=== PATIENT | male | born 1940 | race Caucasian/White ===

== ENCOUNTER 2017-03-12 16:03 | Emergency (ER) | payer OTHER ==
[~2017-03-12] VITALS: Ht 165.1 cm; Wt 75.0 kg
[2017-03-12 16:04] VITALS: BP 166/79; PULSE 99; RESP 24; TEMP 100; O2SAT 94
[2017-03-12 16:20] VITALS: RESP 16; O2SAT 95
[2017-03-12] MEDS ORDERED: TAMS0.4C4 PO (16:41)
[2017-03-12] MEDS ORDERED: PRAV20TA2 PO (16:41)
--- NOTE | 2017-03-12 16:55 | PD ---
HPI Chief Complaint: Complaint Time Seen by Provider: 16:55 Travel History International Travel<30 days: No Contact w/Intl Traveler<30days: No Traveled to known affect area: No History of Present Illness HPI 76-year-old male with a history of hyperlipidemia and prostate cancer presents to the emergency department for evaluation of painful urination, fever and urinary frequency. Patient states that for the past 3 days he's had pain in the tip of his penis after urinating. States that today he had subjective fever and has had urinary frequency, states he has urinated about 30 times today. He states that he does have a history of prostate cancer and is currently receiving outpatient radiation therapy, denies any chemotherapy. Denies any rectal pain, painful bowel movements, perineal pain, hematuria, testicular pain, abdominal pain, nausea, vomiting, diarrhea. No other complaints. PFSH Past Medical History Cancer: Yes (prostate) Patient Takes Glucophage: No Tetanus Vaccination: Unknown Influenza Vaccination: No Past Surgical History Appendectomy: Yes Social History Alcohol Use: No Tobacco Use: No (stopped at age 51, smoked for 25 years) Substance Use: No Allergies-Medications (Allergen,Severity, Reaction): Coded Allergies: Penicillin (Verified Allergy, Unknown, 03/12/17) Reported Meds & Prescriptions Reported Meds & Active Scripts Active Levaquin (Levofloxacin) 750 Mg Tablet 750 Tab PO DAILY 7 Days Reported Pravastatin 20 Mg Tab 20 Mg PO HS Tamsulosin (Tamsulosin HCl) 0.4 Mg Cap 0.4 Mg PO BID Review of Systems Except as stated in HPI: all other systems reviewed are Neg Physical Exam Narrative GENERAL: Well-nourished and well-developed pleasant male patient in no acute distress who is nontoxic appearing. SKIN: Warm and dry. HEAD: Normocephalic and atraumatic. EYES: No injection, drainage, or hyphema noted. PERRLA. EOMI. ENT: No nasal drainage noted. Oropharynx is clear. NECK: Supple and the trachea is midline. CARDIOVASCULAR: Regular rate and rhythm. RESPIRATORY: Breath sounds are equal bilaterally with no accessory muscle use, wheezing, rhonchi, or crackles. GASTROINTESTINAL: Abdomen is soft, non-tender, and nondistended. GENITOURINARY: Uncircumcised. Testes descended bilaterally without evidence of rotation. No lesions or erythema. No urethral discharge. Tenderness to palpation of distal penis around the urethral meatus. No perineal tenderness to palpation or swelling. Performed in the presence of Brandon RN. MUSCULOSKELETAL: No obvious deformities, swelling, cyanosis, or ecchymosis is present throughout the upper and lower extremities. Patient has full range of motion without any signs of neurovascular compromise. NEUROLOGICAL: Awake, alert, and oriented. Normal speech and gait. Cranial nerves are grossly intact. Data Data Last Documented VS Vital Signs Date Time Temp Pulse Resp B/P Pulse Ox O2 Delivery O2 Flow Rate FiO2 03/12/17 17:14 99.7 90 18 156/88 100 Room Air Orders Complete Blood Count With Diff (03/12/17 16:24) Comprehensive Metabolic Panel (03/12/17 16:24) Lactic Acid Sepsis Protocol (03/12/17 16:24) Urinalysis - C+S If Indicated (03/12/17 16:24) Blood Culture (03/12/17 16:24) Chest, Single Ap (03/12/17 16:24) Blood Glucose (03/12/17 16:24) Ecg Monitoring (03/12/17 16:24) Iv Access Insert/Monitor (03/12/17 16:24) Oximetry (03/12/17 16:24) Ct Thorax/ Chest W Iv Contrast (03/12/17 17:25) Sodium Chlor 0.9% 1000 Ml Inj (Ns 1000 M (03/12/17 17:25) Urine Culture (03/12/17 17:26) Iohexol 350 Inj (Omnipaque 350 Inj) (03/12/17 18:18) Labs Laboratory Tests Test 03/12/17 03/12/17 03/12/17 16:25 16:40 16:57 White Blood Count 6.7 TH/MM3 Red Blood Count 4.74 MIL/MM3 Hemoglobin 13.3 GM/DL Hematocrit 39.8 % Mean Corpuscular Volume 84.0 FL Mean Corpuscular Hemoglobin 28.0 PG Mean Corpuscular Hemoglobin 33.3 % Concent Red Cell Distribution Width 13.1 % Platelet Count 213 TH/MM3 Mean Platelet Volume 8.9 FL Neutrophils (%) (Auto) 76.5 % Lymphocytes (%) (Auto) 10.8 % Monocytes (%) (Auto) 9.9 % Eosinophils (%) (Auto) 2.1 % Basophils (%) (Auto) 0.7 % Neutrophils # (Auto) 5.2 TH/MM3 Lymphocytes # (Auto) 0.7 TH/MM3 Monocytes # (Auto) 0.7 TH/MM3 Eosinophils # (Auto) 0.1 TH/MM3 Basophils # (Auto) 0.0 TH/MM3 CBC Comment DIFF FINAL Differential Comment Sodium Level 137 MEQ/L Potassium Level 3.9 MEQ/L Chloride Level 103 MEQ/L Carbon Dioxide Level 23.7 MEQ/L Anion Gap 10 MEQ/L Blood Urea Nitrogen 20 MG/DL Creatinine 1.11 MG/DL Estimat Glomerular Filtration 65 ML/MIN Rate Random Glucose 104 MG/DL Calcium Level 9.0 MG/DL Total Bilirubin 0.3 MG/DL Aspartate Amino Transf 26 U/L (AST/SGOT) Alanine Aminotransferase 41 U/L (ALT/SGPT) Alkaline Phosphatase 64 U/L Total Protein 7.8 GM/DL Albumin 3.5 GM/DL Lactic Acid Level 1.1 mmol/L Urine Color YELLOW Urine Turbidity CLEAR Urine pH 6.0 Urine Specific [place] 1.019 Urine Protein NEG mg/dL Urine Glucose (UA) NEG mg/dL Urine Ketones NEG mg/dL Urine Occult Blood TRACE Urine Nitrite NEG Urine Bilirubin NEG Urine Urobilinogen LESS THAN 2.0 MG/DL Urine Leukocyte Esterase NEG Urine RBC 1 /hpf Urine WBC 2 /hpf Urine Mucus FEW /lpf Microscopic Urinalysis Comment CATH-CULT NOT IND MDM Medical Decision Making Medical Screen Exam Complete: Yes Emergency Medical Condition: Yes Differential Diagnosis Urinary tract infection versus urethritis versus radiation side effects versus prostatitis Narrative Course 76-year-old male presents to the emergency department for evaluation of painful urination, fever and urinary frequency. Patient has a fever of 100.0F here in the ED. He slightly tachycardic with a heart rate of 99 bpm. Otherwise vital signs within normal limits. Patient has a history of prostate cancer receiving radiation therapy, no chemotherapy. He does not have any pain overlying the prostate, his pain is located in the distal tip of the penis. History and physical exam findings are suspicious for urinary tract infection. IV access is obtained, labs were drawn and sent. Patient is placed on cardiac telemetry and pulse oximetry monitoring. CBC is unremarkable. CMP shows elevated BUN of 20, otherwise unremarkable. Lactic acid is 1.1. Urinalysis shows trace occult blood and few mucus. Chest x-ray shows focal right upper lobe opacity with differential including early mild focal pneumonia and mass. Chest CT is recommended if felt clinically indicated. Chest CT with IV contrast shows focal wedge-shaped airspace consolidation measuring 3.3 x 3.4 cm in the peripheral right upper lobe. Differential considerations include focal air space infection versus infiltrative mass. Follow-up to resolution is recommended following course of appropriate antibiotics. Mild nonspecific bilateral hilar adenopathy. I discussed all findings with the patient and his son. Given the patient's fever this is likely a pneumonia. We'll treat the patient with Levaquin to cover for any potential source of urinary infection as well as pneumonia. Discussed with the patient and son that he may have a chest mass, they're given a copy of the chest CT report. They're instructed to follow up after the antibiotics to have repeat chest x-ray. Patient and son verbalized understanding and agreement with treatment plan. I discussed the case with my attending physician Dr. Buitrago who is aware of the patients history, physical examination findings, and treatment plan. Diagnosis Primary Impression: Pneumonia Qualified Code: J18.1 - Pneumonia of right upper lobe due to infectious organism Additional Impression: Dysuria Referrals: Primary Care Physician Patient Instructions: Community Acquired Pneumonia (ED), Dysuria (ED), General Instructions Additional Instructions: The Chest CT we performed shows you may have a mass in your lung. You need to have a repeat chest x-ray after finishing the antibiotics. Take medications as prescribed with food and a full glass of water. Follow-up with your Primary Care Physician. Return to the ED for any acute worsening of symptoms. Med/Other Pt SpecificInfo: Prescription(s) given Scripts Levofloxacin (Levaquin)750 Mg [id number] Tab PO DAILY 7 Days Prov:Amado Buitrago MD 03/12/17 Disposition: 01 DISCHARGE HOME Condition: Stable Pinky Ellis Mar 12, 2017 16:55
[2017-03-12 17:01] LABS: AUTOMATED NEUTROPHIL # 5.2 TH/MM3 (1.8-7.7); BASOPHIL % 0.7 % (0.0-2.0); EOSINOPHIL # 0.1 TH/MM3 (0-0.4); EOSINOPHIL % 2.1 % (0.0-4.0); HEMATOCRIT 39.8 % (39.0-51.0); HEMO FLAGS DIFF FINAL; LYMPH % 10.8 % (9.0-44.0); LYMPHOCYTE # 0.7 TH/MM3 (1.0-4.8); MEAN CORPUSCULAR HGB CONC 33.3 % (32.0-36.0); MONO % 9.9 % (0.0-8.0); NEUT % 76.5 % (16.0-70.0); PLATELET COUNT 213 TH/MM3 (150-450); RED BLOOD COUNT 4.74 MIL/MM3 (4.50-5.90); RED CELL DISTRIBUTION WIDTH 13.1 % (11.6-17.2); WHITE BLOOD COUNT 6.7 TH/MM3 (4.0-11.0)
--- NOTE | 2017-03-12 17:04 | RADRPT ---
EXAM DATE/TIME: 03/12/2017 16:27 [facility] COMPARISON: No previous studies available for comparison. INDICATIONS : Fever MEDICAL HISTORY : Hypercholesterolemia. SURGICAL HISTORY : None. ENCOUNTER: Initial ACUITY: 1 day PAIN SCORE: 0/10 LOCATION: Bilateral chest FINDINGS: Vague opacity projects over the right upper lobe, could be localized consolidation or mass. There is trace atelectasis at the left lung base. No pleural effusion seen. No pneumothorax. Heart size within normal limits. CONCLUSION: Focal right upper lobe opacity with differential including early/mild focal pneumonia and mass. CT of the chest recommended if felt clinically indicated. Otherwise, there is trace left base atelectasis noted. Bartolome Keenan MD on March 12, 2017 at 16:59 Board Certified Radiologist. This report was verified electronically.
[2017-03-12 17:14] VITALS: BP 156/88; PULSE 90; RESP 18; TEMP 99.7; O2SAT 100
[2017-03-12 17:15] LABS: BLOOD, URINE TRACE (NEG); GLUCOSE,URINE NEG (NEG); KETONE, URINE NEG (NEG); MUCUS URINE FEW /lpf (OCC); NITRITE,URINE NEG (NEG); URINE COLOR YELLOW (YELLW/STRAW)
[2017-03-12 17:16] LABS: COMMENT (UR) CATH-CULT NOT IND; CULTURE IF INDICATED CATH CULTURE NOT IND
[2017-03-12] MEDS ORDERED: SODIUM CHLOR 0.9% 1000 ML INJ 1,000 ML IV SCH (17:25)
[2017-03-12 17:26] LABS: ANION GAP 10 MEQ/L (5-15); AST (GOT) 26 U/L (15-37); BICARBONATE 23.7 MEQ/L (21.0-32.0); BLOOD UREA NITROGEN 20 MG/DL (7-18); CHLORIDE 103 MEQ/L (98-107); GLOMERULAR FILTRATION RATE 65 ML/MIN (>89); POTASSIUM 3.9 MEQ/L (3.5-5.1); SODIUM (NA) 137 MEQ/L (136-145)
[2017-03-12 17:27] LABS: ALT (GPT) 41 U/L (12-78)
[2017-03-12 17:29] LABS: ALKALINE PHOSPHATASE 64 U/L (45-117); TOTAL BILIRUBIN ADULT 0.3 MG/DL (0.2-1.0)
[2017-03-12] MEDS ORDERED: IOHEXOL 350 MG/ML 10 ML VIAL (for RAD DIAG) IV ONE (18:18)
--- NOTE | 2017-03-12 18:40 | RADRPT ---
EXAM DATE/TIME: 03/12/2017 18:00 [facility] COMPARISON: CHEST SINGLE AP, March 12, 2017, 16:27. INDICATIONS : Abnormal chest x-ray. IV CONTRAST: 65 cc Omnipaque 350 (iohexol) IV RADIATION DOSE: 9.87 CTDIvol (mGy) MEDICAL HISTORY : Carcinoma, prostate. SURGICAL HISTORY : None. ENCOUNTER: Initial ACUITY: 1 day PAIN SCALE: 0/10 LOCATION: Bilateral chest TECHNIQUE: Volumetric scanning of the chest was performed. Using automated exposure control and adjustment of t he mA and/or kV according to patient size, radiation dose was kept as low as reasonably achievable to obtain optimal diagnostic quality images. FINDINGS: Abnormality on radiograph corresponds to 3.3 x 3.4 cm focal nearly wedge-shaped airspace consolidatio n in the peripheral right upper lobe. Scattered calcified granulomas are noted in the left lung. No a dditional foci of pleural or parenchymal abnormalities are noted. There is bilateral hilar adenopathy with nodes measuring up to 12 mm. No significant mediastinal adenopathy. Heart appears unremarkable without significant pericardial effusion. The central pulmonary arteries are grossly patent. Thoracic aorta is patent and non-aneurysmal. No axillary adenopathy or chest wall mass. No focal abnormal lyt ic or blastic bony lesions in the visualized osseous structures. The less portions of the upper abdom en demonstrate no focal abnormality. CONCLUSION: 1. Chest radiograph abnormality corresponds to region of focal somewhat wedge-shaped airspace consoli dation measuring 3.3 x 3.4 cm in the peripheral right upper lobe. Differential considerations include focal airspace infection versus infiltrative mass. Clinical correlation is recommended. Followup to resolution is recommended following course of appropriate antibiotics. 2. Mild nonspecific bilateral hilar adenopathy. Rajesh Banda MD on March 12, 2017 at 18:30 Board Certified Radiologist. This report was verified electronically.
[2017-03-12] MEDS ORDERED: LEVA750T9 PO (18:49)
== END 2017-03-12 19:07 | disposition home or self-care (01) ==
LOC: NEPE 16:03
DX: J18.1 Lobar pneumonia, unspecified organism (principal); N39.0 Urinary tract infection, site not specified; B96.20 Unspecified Escherichia coli [E. coli] as the cause of diseases classified elsewhere; Z85.46 Personal history of malignant neoplasm of prostate; Z87.891 Personal history of nicotine dependence
CPT/HCPCS: 71010; 71260; 80053; 81001; 83605; 85025; 87040; 87077; 87086; 87186; 99285; J7030; Q9967

== ENCOUNTER 2017-09-18 15:18 | Emergency (ER) | payer OTHER, MEDICAID ==
[~2017-09-18] VITALS: Ht 165.1 cm; Wt 72.5 kg
[~2017-09-18 15:18] MED LIST: LEVA750T9 PO; PRAV20TA2 PO; TAMS0.4C4 PO
[2017-09-18 15:22] VITALS: BP 154/66; PULSE 80; RESP 16; TEMP 98.2; O2SAT 97
--- NOTE | 2017-09-18 15:39 | PD ---
HPI Chief Complaint: Pain: Acute or Chronic Time Seen by Provider: 15:34 Travel History International Travel<30 days: No Contact w/Intl Traveler<30days: No Traveled to known affect area: No History of Present Illness HPI 76 YO right hand dominant male presents to the ED for evaluation of 2 day history of left hand pain. Onset after the patient lost his balance and attempted to catch himself with his left hand. Pain is centered at the base of the first metacarpal. Described as constant, rated 5/10. Worsened by attempted ROM. He denies numbness, tingling, weakness, limitations to range of motion, previous injury to the area. The patient treated by putting a splint on his wrist. PFSH Past Medical History Cancer: Yes (prostate) Past Surgical History Appendectomy: Yes Social History Alcohol Use: No Tobacco Use: No (stopped at age 51, smoked for 25 years) Substance Use: No Allergies-Medications (Allergen,Severity, Reaction): Coded Allergies: penicillin G (Unverified Allergy, Unknown, 09/18/17) Reported Meds & Prescriptions Reported Meds & Active Scripts Active Ibuprofen 600 Mg Tab 600 Mg PO Q8HR PRN Levaquin (Levofloxacin) 750 Mg Tablet 750 Tab PO DAILY 7 Days Reported Pravastatin 20 Mg Tab 20 Mg PO HS Tamsulosin (Tamsulosin HCl) 0.4 Mg Cap 0.4 Mg PO BID Review of Systems Except as stated in HPI: all other systems reviewed are Neg Physical Exam Narrative GENERAL: Well-nourished, well-developed male in no acute distress. SKIN: Focused skin assessment warm/dry. HEAD: Normocephalic. EYES: No scleral icterus. No injection or drainage. NECK: Supple, trachea midline. No JVD or lymphadenopathy. CARDIOVASCULAR: Regular rate and rhythm without murmurs, gallops, or rubs. RESPIRATORY: Breath sounds equal bilaterally. No accessory muscle use. GASTROINTESTINAL: Abdomen soft, non-tender, nondistended. MUSCULOSKELETAL: No cyanosis, or edema. FOCUSED LEFT UPPER EXTREMITY EXAM: 2+ radial pulse. TTP base of the first metacarpal. No snuffbox TTP. Strong finger to thumb opposition with each digit. Patient is able to flex and extend the fingers and the wrist. Cap refill less than 2 seconds. Sensation intact to light touch distally. BACK: Nontender without obvious deformity. No CVA tenderness. Data Data Last Documented VS Vital Signs Date Time Temp Pulse Resp B/P (MAP) Pulse Ox O2 Delivery O2 Flow Rate FiO2 09/18/17 16:29 09/18/17 15:22 98.2 80 16 97 Orders Orders Ibuprofen (Motrin) (09/18/17 15:45) Hand, Complete ([id number]) (09/18/17 15:39) Ice/Cold Pack (09/18/17 15:39) Splint Or Brace Apply/Monitor (09/18/17 16:11) Ed Discharge Order (09/18/17 16:11) Cockup Hand Splint (09/18/17 ) [facility] Medical Decision Making Medical Screen Exam Complete: Yes Emergency Medical Condition: Yes Differential Diagnosis wrist strain versus fracture versus dislocation versus sprain versus other Narrative Course 76 YO right hand dominant male presents to the ED for evaluation of 2 day history of left hand pain. Onset after the patient lost his balance attempted to catch himself with his left hand. Pain is centered at the base of the first metacarpal. Described as constant, rated 5/10. Worsened by attempted ROM. He denies numbness, tingling, weakness, limitations to range of motion, previous injury to the area. The patient treated by putting a splint on his wrist. Vitals reviewed. On exam the patient has tenderness to palpation of the base of the first metacarpal but exam is otherwise unremarkable. Icepack was applied. Patient was administered 600 mg ibuprofen. X-rays reveal no acute bony injury. SPLINT was applied. Patient was prescribed a short course of anti -inflammatory medications. He is instructed take the medicine as prescribed, return to normal, gentle activity as tolerated, follow-up with the hand surgeon should symptoms persist. He indicated understanding of the instructions and is agreeable to the care plan. The patient is stable and discharged home. Diagnosis Primary Impression: Hand pain, left Referrals: Lili Calderon MD Patient Instructions: General Instructions, Hand Sprain (ED) Additional Instructions: Rest, ice, elevate the extremity. Apply ice no longer than 10-15 minutes per hour a few times a day. 600 mg ibuprofen up to 3 times a day as needed for pain. Return to normal, gentle activity as tolerated. No heavy lifting or overuse for the next week. Follow up with a hand surgeon should symptoms persist. Return to the ED for any urgent or emergent medical condition. Med/Other Pt SpecificInfo: Prescription(s) given Scripts Ibuprofen (Ibuprofen) 600 Mg Tab 600 MG PO Q8HR Y for PAIN, #15 TAB 0 Refills Prov: Renuka Walker MD 09/18/17 Disposition: 01 DISCHARGE HOME Condition: Stable Fadumo Potts Sep 18, 2017 15:39
[2017-09-18] MEDS ORDERED: IBUPROFEN 600 MG TAB PO ONE (15:45)
[2017-09-18] MEDS ORDERED: IBUP-232 PO ×3 (16:13→16:16)
--- NOTE | 2017-09-18 16:47 | RADRPT ---
EXAM DATE/TIME: 09/18/2017 15:51 [facility] COMPARISON: No previous studies available for comparison. INDICATIONS : Trauma. MEDICAL HISTORY : None. SURGICAL HISTORY : None. ENCOUNTER: Initial ACUITY: 1 day PAIN SCORE: 9/10 LOCATION: Left Wrist. FINDINGS: 3 views left hand. Bone alignment within normal limits. No evidence of fracture. Bone mineralization within normal limits. Minimal osteophytes of the index finger and long finger DIP joints. Small radi opaque foreign body in the soft tissues adjacent to the distal radius laterally. CONCLUSION: No evidence of fracture. Tristan Poole MD on September 18, 2017 at 16:45 Board Certified Radiologist. This report was verified electronically.
== END 2017-09-18 16:29 | disposition home or self-care (01) ==
LOC: NEPD 15:18
DX: M79.642 Pain in left hand (principal)
CPT/HCPCS: 73130; 99283; L3908

== ENCOUNTER 2017-10-31 14:25 | Emergency (ER) | payer OTHER, MEDICAID ==
[~2017-10-31 14:25] MED LIST changes: +IBUP-232 PO
[2017-10-31 14:26] VITALS: BP 184/86; PULSE 81; RESP 14; TEMP 97.3; O2SAT 94
[2017-10-31 14:42] VITALS: BP 173/80; PULSE 73; RESP 16; O2SAT 99
--- NOTE | 2017-10-31 14:51 | PD ---
HPI Chief Complaint: Stroke Alert Time Seen by Provider: 14:20 Travel History International Travel<30 days: No Contact w/Intl Traveler<30days: No Traveled to known affect area: No History of Present Illness HPI Patient is a primarily Turkmen-speaking patient comes in complaining of right sided face inability to move. He woke up at around 8 AM today with these symptoms, patient denies any lateralizing weakness to his arms and legs trunk or anywhere else. Patient states that he denies any associated fever cough chest pain back pain headache nausea vomiting or diarrhea as well as any photophobia. Patient states he has no alleviating or aggravating factors. Patient states that his speech is normal everything is normal except for his face PFSH Past Medical History Cancer: Yes (prostate) Past Surgical History Appendectomy: Yes Social History Alcohol Use: No Tobacco Use: No (stopped at age 51, smoked for 25 years) Substance Use: No Allergies-Medications (Allergen,Severity, Reaction): Coded Allergies: penicillin G (Verified Allergy, Unknown, RASH, 10/31/17) Reported Meds & Prescriptions Reported Meds & Active Scripts Active Reported Pravastatin 20 Mg Tab 20 Mg PO HS Tamsulosin (Tamsulosin HCl) 0.4 Mg Cap 0.4 Mg PO BID Review of Systems General / Constitutional: No: Fever Eyes: No: Visual changes HENT: Positive: Other Cardiovascular: No: Chest Pain or Discomfort Respiratory: No: Shortness of Breath Gastrointestinal: No: Abdominal Pain Genitourinary: No: Dysuria Musculoskeletal: No: Pain Skin: No Rash Neurologic: Positive: Weakness (facial) Psychiatric: No: Depression Endocrine: No: Polydipsia Hematologic/Lymphatic: No: Easy Bruising Physical Exam Narrative GENERAL: SKIN: Warm and dry. HEAD: Atraumatic. Normocephalic. EYES: Pupils equal and round. No scleral icterus. No injection or drainage. ENT: No nasal bleeding or discharge. Mucous membranes pink and moist. NECK: Trachea midline. No JVD. CARDIOVASCULAR: Regular rate and rhythm. RESPIRATORY: No accessory muscle use. Clear to auscultation. Breath sounds equal bilaterally. GASTROINTESTINAL: Abdomen soft, non-tender, nondistended. Hepatic and splenic margins not palpable. MUSCULOSKELETAL: Extremities without clubbing, cyanosis, or edema. No obvious deformities. NEUROLOGICAL: Awake and alert. right sided paralysis of rt facial area.... Tearing of the right eye is noted. Also noted when patient closes both eyelids his right eye rolls up which is consistent with Vo's phenomenon. When the patient just shows his teeth he shows a right sided facial paralysis left side of his face is within normal limits this paralysis this extends onto the forehead as well all these findings are consistent with peripheral cranial nerve VII palsy .motor grossly within normal limits. Five out of 5 muscle strength in the arms and legs. Normal speech. PSYCHIATRIC: Appropriate mood and affect; insight and judgment normal. Data Data Last Documented VS Vital Signs Date Time Temp Pulse Resp B/P (MAP) Pulse Ox O2 Delivery O2 Flow Rate FiO2 10/31/17 17:08 97.8 75 15 172/84 (113) 99 Room Air Orders Orders Electrocardiogram (10/31/17 ) Complete Blood Count With Diff (10/31/17 14:51) Comprehensive Metabolic Panel (10/31/17 14:51) Prothrombin Time / Inr (Pt) (10/31/17 14:51) Act Partial Throm Time (Ptt) (10/31/17 14:51) Ct Brain W/O Iv Contrast(Rout) (10/31/17 14:51) Ecg Monitoring (10/31/17 14:51) Iv Access Insert/Monitor (10/31/17 14:51) Oximetry (10/31/17 14:51) Sodium Chloride 0.9% Flush (Ns Flush) (10/31/17 15:00) Labs Laboratory Tests Test 10/31/17 14:52 White Blood Count 6.1 TH/MM3 Red Blood Count 4.48 MIL/MM3 Hemoglobin 12.8 GM/DL Hematocrit 37.3 % Mean Corpuscular Volume 83.4 FL Mean Corpuscular Hemoglobin 28.5 PG Mean Corpuscular Hemoglobin Concent 34.2 % Red Cell Distribution Width 13.2 % Platelet Count 233 TH/MM3 Mean Platelet Volume 8.1 FL Neutrophils (%) (Auto) 59.8 % Lymphocytes (%) (Auto) 14.1 % Monocytes (%) (Auto) 14.4 % Eosinophils (%) (Auto) 10.4 % Basophils (%) (Auto) 1.3 % Neutrophils # (Auto) 3.6 TH/MM3 Lymphocytes # (Auto) 0.9 TH/MM3 Monocytes # (Auto) 0.9 TH/MM3 Eosinophils # (Auto) 0.6 TH/MM3 Basophils # (Auto) 0.1 TH/MM3 CBC Comment DIFF FINAL Differential Comment Prothrombin Time 9.9 SEC Prothromb Time International Ratio 1.0 RATIO Activated Partial Thromboplast Time 24.6 SEC Blood Urea Nitrogen 22 MG/DL Creatinine 1.10 MG/DL Random Glucose 107 MG/DL Total Protein 8.3 GM/DL Albumin 3.5 GM/DL Calcium Level 9.8 MG/DL Alkaline Phosphatase 110 U/L Aspartate Amino Transf (AST/SGOT) 28 U/L Alanine Aminotransferase (ALT/SGPT) 41 U/L Total Bilirubin 0.2 MG/DL Sodium Level 139 MEQ/L Potassium Level 3.7 MEQ/L Chloride Level 103 MEQ/L Carbon Dioxide Level 29.1 MEQ/L Anion Gap 7 MEQ/L Estimat Glomerular Filtration Rate 65 ML/MIN [facility] Medical Decision Making Medical Screen Exam Complete: Yes Emergency Medical Condition: Yes Medical Record Reviewed: Yes Interpretation(s) EKG: Normal sinus rhythm, 71 bpm, normal intervals, nonspecific ST-T wave changes, no STEMI pattern noted Differential Diagnosis CVA versus TIA versus Vo's palsy Narrative Course Patient was seen immediately upon placement in the emergency department in [place] [id number]. Upon examination NIH and GCS examination patient does not show any central deficits. Patient's findings were consistent with a peripheral cranial nerve VII deficit consistent with Vo's palsy. Furthermore this patient's symptoms were present since before 8 this morning patient woke up with his symptoms, therefore he is well outside any type of TPA timeframe Diagnosis Primary Impression: Right-sided Vo's palsy Patient Instructions: Vo Palsy (ED), General Instructions Additional Instructions: TAPE YOUR RIGHT EYE SHUT WHENEVER YOU GO TO SLEEP TO AVOID INJURY OR DAMAGE TO EYE DUE TO OVER DRYING Scripts Carboxymethylcellulose Sodium Opth Drops (Lubricant Opth Drops) 0.5% Drops 1 DROP RIGHT EYE QID for Dry Eye, #1 BOTTLE 0 Refills Prov: Cesar Thompson MD 10/31/17 Doxycycline Hyclate (Doxycycline Hyclate) 100 Mg Cap 100 MG PO BID for Infection for 7 Days, #14 CAP 0 Refills Prov: Cesar Thompson MD 10/31/17 Methylprednisolone Dosepak (Medrol Dosepak) 4 Mg Dspk 4 MG PO DIRECTED, #1 DSPK 0 Refills Per Pharmacist direction Prov: Cesar Thompson MD 10/31/17 Disposition: 01 DISCHARGE HOME Condition: Stable Cesar Thompson MD Oct 31, 2017 14:51
[2017-10-31 14:52] VITALS: RESP 16; O2SAT 99
[2017-10-31] MEDS ORDERED: SODIUM CHLORIDE 0.9% FLUSH 10 ML FLUSH IVF PRN (15:00)
[2017-10-31 15:30] LABS: AUTOMATED NEUTROPHIL # 3.6 TH/MM3 (1.8-7.7); BASOPHIL # 0.1 TH/MM3 (0-0.2); BASOPHIL % 1.3 % (0.0-2.0); EOSINOPHIL # 0.6 TH/MM3 (0-0.4); EOSINOPHIL % 10.4 % (0.0-4.0); HEMATOCRIT 37.3 % (39.0-51.0); HEMOGLOBIN 12.8 GM/DL (13.0-17.0); LYMPH % 14.1 % (9.0-44.0); LYMPHOCYTE # 0.9 TH/MM3 (1.0-4.8); MEAN CELL VOLUME 83.4 FL (80.0-100.0); MEAN CORPUSCULAR HEMOGLOBIN 28.5 PG (27.0-34.0); MEAN CORPUSCULAR HGB CONC 34.2 % (32.0-36.0); MEAN PLATELET VOLUME 8.1 FL (7.0-11.0); MONO % 14.4 % (0.0-8.0); MONOCYTE # 0.9 TH/MM3 (0-0.9); NEUT % 59.8 % (16.0-70.0); PLATELET COUNT 233 TH/MM3 (150-450); RED BLOOD COUNT 4.48 MIL/MM3 (4.50-5.90); RED CELL DISTRIBUTION WIDTH 13.2 % (11.6-17.2); WHITE BLOOD COUNT 6.1 TH/MM3 (4.0-11.0)
[2017-10-31 15:34] VITALS: BP 172/83; PULSE 74; RESP 15; TEMP 97.7; O2SAT 99
[2017-10-31 15:34] LABS: PROTHROMBIN TIME - PATIENT 9.9 SEC (9.8-11.6)
[2017-10-31 16:02] LABS: ALKALINE PHOSPHATASE 110 U/L (45-117); TOTAL BILIRUBIN ADULT 0.2 MG/DL (0.2-1.0); TOTAL PROTEIN 8.3 GM/DL (6.4-8.2)
[2017-10-31 16:16] LABS: ALBUMIN 3.5 GM/DL (3.4-5.0); ALT (GPT) 41 U/L (12-78); AST (GOT) 28 U/L (15-37); BICARBONATE 29.1 MEQ/L (21.0-32.0); BLOOD UREA NITROGEN 22 MG/DL (7-18); CALCIUM 9.8 MG/DL (8.5-10.1); CHLORIDE 103 MEQ/L (98-107); GLOMERULAR FILTRATION RATE 65 ML/MIN (>89); GLUCOSE,RANDOM 107 MG/DL (74-106); SODIUM (NA) 139 MEQ/L (136-145)
--- NOTE | 2017-10-31 16:19 | RADRPT ---
EXAM DATE/TIME: 10/31/2017 16:02 [place] COMPARISON: No previous studies available for comparison. INDICATIONS : Right sided facial droop today. RADIATION DOSE: 56.35 CTDIvol (mGy) MEDICAL HISTORY : Carcinoma, prostate. SURGICAL HISTORY : Appendectomy. ENCOUNTER: Initial ACUITY: 1 day PAIN SCALE: 7/10 LOCATION: Bilateral head TECHNIQUE: Multiple contiguous axial images were obtained of the head. Using automated exposure control and adj ustment of the mA and/or kV according to patient size, radiation dose was kept as low as reasonably a chievable to obtain optimal diagnostic quality images. DICOM format image data is available electro nically for review and comparison. FINDINGS: CEREBRUM: The ventricles are normal for age. No evidence of midline shift, mass lesion, hemorrhage or acute in farction. No extra-axial fluid collections are seen. Mild to moderate periventricular and subcortica l white matter small vessel ischemic changes are noted bilaterally. POSTERIOR FOSSA: The cerebellum and brainstem are intact. The 4th ventricle is midline. The cerebellopontine angle i s unremarkable. EXTRACRANIAL: The visualized portion of the orbits is intact. SKULL: The calvaria is intact. No evidence of skull fracture. CONCLUSION: 1. Mild to moderate periventricular and subcortical white matter small vessel ischemic changes bilate rally. 2. No acute infarct, acute hemorrhage, mass effect or extra-axial fluid collections. Aramis Nelson MD on October 31, 2017 at 16:15 Board Certified Radiologist. This report was verified electronically.
[2017-10-31 17:08] VITALS: BP 172/84; PULSE 75; RESP 15; TEMP 97.8; O2SAT 99
[2017-10-31] MEDS ORDERED: MEDR4PAK PO (17:18)
[2017-10-31] MEDS ORDERED: DOXY100C PO (17:18)
[2017-10-31] MEDS ORDERED: LUBR0.5D2 RIGHT EYE (17:18)
[2017-10-31 17:29] VITALS: BP 152/84; TEMP 97.8
--- NOTE | 2017-11-01 14:33 | EKG ---
Date Performed: 10/31/2017 Time Performed: 14:42:43 PTAGE: 76 years EKG: Sinus rhythm NONSPECIFIC ST & T-WAVE ABNORMALITY BORDERLINE ECG NO PREVIOUS TRACING DOCTOR: Rayray Harding Interpretating Date/Time 11/01/2017 14:30:10
== END 2017-10-31 17:30 | disposition home or self-care (01) ==
LOC: NEPC 14:25
DX: G51.0 Bell's palsy (principal); R94.31 Abnormal electrocardiogram [ECG] [EKG]; Z85.46 Personal history of malignant neoplasm of prostate; Z87.891 Personal history of nicotine dependence
CPT/HCPCS: 70450; 80053; 85025; 85610; 85730; 93005; 99285

== ENCOUNTER 2017-11-27 18:48 | Emergency (ER) | payer OTHER, MEDICAID ==
[~2017-11-27 18:48] MED LIST changes: +DOXY100C PO; -IBUP-232 PO; -LEVA750T9 PO; +LUBR0.5D2 RIGHT EYE; +MEDR4PAK PO
[2017-11-27 18:52] VITALS: BP 168/74; PULSE 88; RESP 16; TEMP 98.3; O2SAT 97
[2017-11-27] MEDS ORDERED: CORTI10A RIGHT EAR (19:34)
[2017-11-27] MEDS ORDERED: CLIN300C5 PO (19:34)
--- NOTE | 2017-11-27 19:34 | PD ---
HPI Chief Complaint: ENT Complaint Time Seen by Provider: 19:13 Travel History International Travel<30 days: No Contact w/Intl Traveler<30days: No Traveled to known affect area: No History of Present Illness HPI Patient is a 77 year old male who comes in complaining of right ear pain. He says he has had the pain for the past 2-3 weeks. He saw his primary doctor who told him to use an over the counter ear drop, which he says is not helping. He has had some nasal congestion. He denies fever or chills or drainage from the ear. He says in the past few days the pain has become worse. He denies any other issues. Severity is mild to moderate. PFSH Past Medical History Cancer: Yes (prostate) Cardiovascular Problems: Yes High Cholesterol: Yes Diabetes: No Patient Takes Glucophage: No Diminished Hearing: No Genitourinary: Yes Past Surgical History Appendectomy: Yes Social History Alcohol Use: No Tobacco Use: No (stopped at age 51, smoked for 25 years) Substance Use: No Allergies-Medications (Allergen,Severity, Reaction): Coded Allergies: penicillin G (Verified Allergy, Unknown, RASH, 10/31/17) Reported Meds & Prescriptions Reported Meds & Active Scripts Active Review of Systems General / Constitutional: No: Fever, Chills HENT: Positive: Congestion, Earache Cardiovascular: No: Chest Pain or Discomfort Respiratory: No: Cough, Shortness of Breath Gastrointestinal: No: Nausea, Vomiting Musculoskeletal: No: Myalgias Skin: No Rash, No Change in Pigmentation Neurologic: No: Weakness, Dizziness Physical Exam Narrative GENERAL: Awake and alert, in no acute distress. SKIN: Focused skin assessment warm/dry. HEAD: Atraumatic. Normocephalic. EYES: Pupils equal and round. No scleral icterus. No injection or drainage. ENT: Mucous membranes pink and moist. Left ear canal is erythematous. TM is obscured. CARDIOVASCULAR: Regular rate and rhythm. No murmur appreciated. RESPIRATORY: No accessory muscle use. Clear to auscultation. Breath sounds equal bilaterally. MUSCULOSKELETAL: No obvious deformities. No clubbing. No cyanosis. No edema. NEUROLOGICAL: Awake and alert. No obvious cranial nerve deficits. Motor grossly within normal limits. Normal speech. Data Data Last Documented VS Vital Signs Date Time Temp Pulse Resp B/P (MAP) Pulse Ox O2 Delivery O2 Flow Rate FiO2 3/4/18 18:52 98.3 88 16 168/74 (105) 97 MDM Medical Decision Making Medical Screen Exam Complete: Yes Emergency Medical Condition: Yes Medical Record Reviewed: Yes Differential Diagnosis otitis media vs otitis externa vs URI Narrative Course Patient is a 77 year old male who comes in complaining of left ear pain. Exam shows red ear canal and obscured TM. Patient will be discharged with prescriptions for Cortisporin otic drops and clindamycin. Advised to follow up with his doctor. Advised to return to the ED as needed for any worsening symptoms. Diagnosis Primary Impression: Otitis externa Qualified Codes: H60.501 - Unspecified acute noninfective otitis externa, right ear Additional Impression: Otitis media Qualified Codes: H66.91 - Otitis media, unspecified, right ear Patient Instructions: Ear Infection (ED), General Instructions Additional Instructions: Take all of the antibiotic. Follow up with your doctor. Return to the ED as needed for any worsening symptoms. Scripts Clindamycin (Clindamycin) 300 Mg Cap 300 MG PO Q6H for Infection for 7 Days, #28 CAP 0 Refills Prov: Zari Mcginnis MD 11/27/17 Aqflphqp-Srvxfzzst-OO Otic Drops (Leybncap-Qcpdpslui-CN Otic Drops) 1 % Soln 4 DROP RIGHT EAR QID for Infection for 10 Days, #1 BOTTLE 0 Refills Prov: Zari Mcginnis MD 11/27/17 Disposition: 01 DISCHARGE HOME Condition: Stable Zari Mcginnis MD Nov 27, 2017 19:34
== END 2017-11-27 19:50 | disposition home or self-care (01) ==
LOC: NEPD 18:48
DX: H60.501 Unspecified acute noninfective otitis externa, right ear (principal); H66.91 Otitis media, unspecified, right ear; Z87.891 Personal history of nicotine dependence
CPT/HCPCS: 99283

== ENCOUNTER 2018-04-15 17:54 | Observation (INO) ==
[2018-04-15] MEDS ORDERED: Morphine Inj 4 MG/ML Vial IV.PUSH ONE (19:30)
[2018-04-15] MEDS ORDERED: Sod Chloride 0.9% Inj 1,000 ML IV.SIG ONE (19:30)
[2018-04-15 20:04] LABS: Baso # (Auto) 0.2 th/mm3 (0.0-0.2); Baso % (Auto) 1.1 % (0.0-2.0); Eos # (Auto) 0.5 th/mm3 (0.0-0.4); Eos % (Auto) 3.2 % (0.0-4.0); Hematocrit 33.7 % (39.0-51.0); Hemoglobin 10.8 gm/dL (13.0-17.0); Lymph # (Auto) 2.5 th/mm3 (1.0-4.8); Lymph % (Auto) 14.3 % (9.0-44.0); Mean Corpuscular HGB Conc 32.2 % (32.0-36.0); Mean Corpuscular Volume 80.8 fL (80.0-100.0); Mean Platelet Volume 8.2 fL (7.0-11.0); Mono # (Auto) 1.8 th/mm3 (0.0-0.9); Mono % (Auto) 10.3 % (0.0-8.0); Neut # (Auto) 12.2 th/mm3 (1.8-7.7); Neut % (Auto) 71.1 % (16.0-70.0); Platelet Count 392 th/mm3 (150-450); Red Blood Count 4.17 mil/mm3 (4.50-5.90); Red Cell Distribution Width 14.4 % (11.6-17.2); White Blood Count 17.2 th/mm3 (4.0-11.0)
--- NOTE | 2018-04-15 20:21 | CT ---
EXAM DATE: 04/15/2018 8:09 PM EDT AGE/SEX: 77 years / Male INDICATIONS: Abdomen and back pain. CLINICAL DATA: This is the patient's initial encounter. Patient reports that signs and symptoms have been present for 2 days and indicates a pain score of 6/10. MEDICAL/SURGICAL HISTORY: Carcinoma, prostatic. None. RADIATION DOSE: 6.64 CTDI (mGy) COMPARISON: No prior exams available for comparison. TECHNIQUE: Multiple contiguous axial images were obtained through the abdomen. Images were obtained using multiple row detector helical technique. Using automated exposure control and adjustment of the mA and/or kV according to patient size, radiation dose was kept as low as reasonably achievable to o btain optimal diagnostic quality images. DICOM format image data is available electronically for rev iew and comparison. FINDINGS: Lower Lungs: The visualized lower lungs are clear. Liver: The liver has a homogeneous density without space-occupying lesion. There is no dilation of th e biliary tree. Spleen: Homogeneous density without enlargement. Pancreas: Unremarkable without mass or calcification. Kidneys: Normal in size and shape. No evidence of mass or hydronephrosis. Adrenal Glands: Unremarkable. Aorta: The aorta and proximal iliac vessels are grossly unremarkable without aneurysmal dilation. Bowel/Mesentery: Mild diverticulosis is present with no focal wall thickening or inflammatory change . The cecum and sigmoid colon have a normal configuration. Abdominal Wall: Intact. Retroperitoneum: No evidence of adenopathy in the retrocrural, para-aortic, or deep pelvic regions. Bladder: Contours are smooth. Reproductive Organs: No abnormal masses or calcifications seen. There are multiple radiation seed im plants present in the region the prostate gland. Inguinal: The inguinal region is unremarkable without evidence of adenopathy. Bony Structures: Unremarkable. CONCLUSION: 1. Mild diverticulosis with no inflammatory change. 2. No visualized etiology to explain the patient's pain. Electronically signed by: Peyman Rose MD 04/15/2018 8:20 PM EDT
[2018-04-15 20:33] LABS: Bilirubin,Urine Negative (Negative); Clarity,Urine Hazy (Clear); Color,Urine Amber (Yellw/Straw); Glucose,Urine (UA) Negative (Negative); Hyaline Casts,Urine 6 /lpf (0-3); Leukocyte Esterase,Urine Negative (Negative); Mucus,Urine Moderate /lpf (Occasional); Nitrite,Urine Negative (Negative); Specific Gravity,Urine 1.024 (1.002-1.035)
[2018-04-15 20:41] LABS: Alanine Aminotransferase 17 U/L (12-78)
[2018-04-15 20:43] LABS: Alkaline Phosphatase 133 U/L (45-117); Total Protein 8.8 g/dL (6.4-8.2)
--- NOTE | 2018-04-15 20:49 | ED ---
[facility] General Chief Complaint: Back Pain/Injury Stated Complaint: Back pain Time Seen by Provider: 04/15/18 19:18 Source: patient and family Mode of arrival: ambulatory Limitations: no limitations History of Present Illness HPI Narrative: 77-year-old male presents emergency department accompanied by family members for evaluation back no abdominal pain. He states that he had just finished up radiation for his prostate cancer. He is followed by Dr. Antony at [facility]. He states that over the last 2 days he has had increasing mid to lower back pain with radiation across into his abdomen. Is also noticed a cough and some decreased appetite. He states that he has had no nausea or vomiting. He denies any fever chills, dysuria, frequency or hematuria. He states the pain is worse when he bends or moves. He has had some improvement with remaining still. Symptoms are moderate. Related Data Home Medications Medication Instructions Recorded Confirmed No Known Home Medications 04/15/18 04/15/18 Allergies Allergy/AdvReac Type Severity Reaction Status Date / Time penicillin G Allergy Unknown RASH Verified 04/15/18 19:03 Review of Systems ROS Unobtainable All other systems reviewed negative except as stated in HPI [facility] Medical History Medical History History of prostate cancer (Acute) Social History Social History Substance History: No History of Abuse Second Hand Smoke Exposure: No Smoking Status: Former smoker How Often Do You Have a Drink Containing Alcohol: Monthly or less Recent Travel in [facility] within the Last 8 Weeks: No Recent Out of Country Travel within the Last 8 Weeks: No Immunization History Tetanus Immunization: Unsure Hx Influenza Vaccine This Season: Yes Exam Narrative Exam Narrative: GENERAL: Well-developed, well-nourished in no apparent distress. Nontoxic appearing. HEAD: Normocephalic, atraumatic. EYES: Pupils equal round and reactive. Extraocular motions intact. No scleral icterus. No injection or drainage. ENT: Nose clear. Throat without erythema, tonsillar hypertrophy or exudate. Uvula midline. Airway patent. NECK: Trachea midline. Supple, nontender, moves head freely. No central bony tenderness or spasm. CARDIOVASCULAR: Regular rate and rhythm without murmurs, gallops, or rubs. RESPIRATORY: Clear to auscultation. Breath sounds equal bilaterally. No wheezes , rales, or rhonchi. GASTROINTESTINAL: Abdomen soft, mild diffuse tenderness to deep palpation., nondistended. No hepato-splenomegaly, or palpable masses. No guarding. EXTREMITIES: No clubbing, cyanosis, or edema. No joint tenderness. BACK: Patient has diffuse para thoracic and lumbar discomfort without point localization. There is no single area of central bony tenderness. Without deformity. No flank tenderness. NEUROLOGICAL: Awake, alert and oriented x 3 .Cranial nerves grossly intact. Motor and sensory grossly within normal limits. Normal speech. Course Initial Documented Vital Signs Temperature 98.9 F 04/15/18 17:58 Pulse Rate 78 04/15/18 17:58 Respiratory Rate 18 04/15/18 17:58 Blood Pressure 163/70 H 04/15/18 17:58 Pulse Oximetry 100 04/15/18 17:58 Last Documented Vital Signs Temperature 97.7 F 04/18/18 00:10 Pulse Rate 84 04/18/18 00:10 Respiratory Rate 15 04/18/18 01:30 Blood Pressure 130/62 04/18/18 00:10 Pulse Oximetry 95 04/18/18 00:10 Medical Decision Making MDM Narrative Medical decision making narrative: IV access is obtained. Patient was given 4 mg of morphine IV, Zofran 4 mg sublingual. Routine laboratory tests including CBC, chemistry, lipase, CRP, lactic acid have been ordered. UA. CT scan of the abdomen with IV contrast. Chest x-ray. Patient's chest x-ray reveals a right upper lobe masslike structure infiltrate versus malignancy. This was noted on prior CT. CAT scan of the abdomen reveals diverticular disease but no obvious acute diverticulitis or acute intra- abdominal process. There is no mention of any metastatic disease to the spine. Patient has had some mild improvement of his discomfort with morphine. Also given a liter of normal saline. Patient's CBC reveals a 17,000 white count. It is unclear whether this is a demargination potential infectious process. He is not febrile at this point. Patient's CRP and lactic are pending. I have spoken with who is agreed to admit the patient for observation status and obtain a CT scan of the chest with contrast tomorrow for more delineation of his chest mass versus infiltrate. I have advised the family of the clinical findings and they were unaware of the prior infiltrate versus mass earlier last year. With the patient's leukocytosis, abdominal back pain I suspect this this is possible malignancy versus infiltrate. Patient will necessitate an observation admission for further evaluation and treatment of his symptoms today. Differential Diagnosis Differential Diagnosis: Acute musculoskeletal back pain, metastatic prostate cancer, infection, pancreatitis, electrolyte abnormality, UTI, pyelonephritis, nephrolithiasis Lab Data Result diagrams: 04/16/18 07:24 04/16/18 07:24 Lab Results 04/15/18 04/15/18 04/15/18 Range/Units 19:50 19:50 19:50 WBC 17.2 H (4.0-11.0) th/mm3 RBC 4.17 L (4.50-5.90) mil/mm3 Hgb 10.8 L (13.0-17.0) gm/dL Hct 33.7 L (39.0-51.0) % MCV 80.8 (80.0-100.0) fL MCH 26.0 L (27.0-34.0) pg MCHC 32.2 (32.0-36.0) % RDW 14.4 (11.6-17.2) % Plt Count 392 (150-450) th/mm3 MPV 8.2 (7.0-11.0) fL Prelim Diff (Auto) Slide review pending Neut % (Auto) 71.1 H (16.0-70.0) % Lymph % (Auto) 14.3 (9.0-44.0) % [place] % (Auto) 10.3 H (0.0-8.0) % Eos % (Auto) 3.2 (0.0-4.0) % Baso % (Auto) 1.1 (0.0-2.0) % Neut # (Auto) 12.2 H (1.8-7.7) th/mm3 Lymph # (Auto) 2.5 (1.0-4.8) th/mm3 [place] # (Auto) 1.8 H (0.0-0.9) th/mm3 Eos # (Auto) 0.5 H (0.0-0.4) th/mm3 Baso # (Auto) 0.2 (0.0-0.2) th/mm3 WBC Differential . Diff Scan Auto diff confirmed Differential Comment . PT (9.8-11.6) sec INR Ratio Sodium 137 (136-145) meq/L Potassium 4.6 (3.5-5.1) meq/L Chloride 103 (98-107) meq/L Carbon Dioxide 23.2 (21.0-32.0) meq/L Anion Gap 11 (5-15) meq/L BUN 19 H (7-18) mg/dL Creatinine 1.10 (0.60-1.30) mg/dL Estimated GFR 65 L (>89) mL/min Random Glucose 98 (74-106) mg/dL Lactic Acid (0.4-2.0) mmol/L Calcium 9.6 (8.5-10.1) mg/dL Total Bilirubin 0.4 (0.2-1.0) mg/dL AST 30 (15-37) U/L ALT 17 (12-78) U/L Alkaline Phosphatase 133 H (45-117) U/L C-Reactive Protein (0.00-0.30) mg/dL Total Protein 8.8 H (6.4-8.2) g/dL Albumin 2.6 L (3.4-5.0) g/dL Lipase 221 (73-393) U/L Urine Color Sarah (Yellw/Straw) Urine Clarity Hazy H (Clear) Urine pH 5.0 (5.0-8.5) Ur Specific [place] 1.024 (1.002-1.035) Urine Protein Negative (Neg-Trace) mg/dL Urine Glucose (UA) Negative (Negative) mg/dL Urine Ketones Negative (Negative) mg/dL Urine Occult Blood Negative (Negative) Urine Nitrate Negative (Negative) Urine Bilirubin Negative (Negative) Urine Urobilinogen Less than 2 (Less than 2) mg/dL Ur Leukocyte Esterase Negative (Negative) Urine RBC 1 (0-3) /hpf Urine WBC 1 (0-5) /hpf Hyaline Casts 6 (0-3) /lpf Urine Mucus Moderate H (Occasional) /lpf Micro UA Comment Culture not ind Urine Culture Comments Culture not ind 04/15/18 04/15/18 04/16/18 Range/Units 19:50 20:50 07:24 WBC 7.3 D (4.0-11.0) th/mm3 RBC 3.96 L (4.50-5.90) mil/mm3 Hgb 10.4 L (13.0-17.0) gm/dL Hct 32.1 L (39.0-51.0) % MCV 81.0 (80.0-100.0) fL MCH 26.3 L (27.0-34.0) pg MCHC 32.5 (32.0-36.0) % RDW 14.2 (11.6-17.2) % Plt Count 337 (150-450) th/mm3 MPV 7.6 (7.0-11.0) fL Prelim Diff (Auto) Neut % (Auto) 77.0 H (16.0-70.0) % Lymph % (Auto) 9.1 (9.0-44.0) % [place] % (Auto) 10.2 H (0.0-8.0) % Eos % (Auto) 2.9 (0.0-4.0) % Baso % (Auto) 0.8 (0.0-2.0) % Neut # (Auto) 5.7 (1.8-7.7) th/mm3 Lymph # (Auto) 0.7 L (1.0-4.8) th/mm3 [place] # (Auto) 0.7 (0.0-0.9) th/mm3 Eos # (Auto) 0.2 (0.0-0.4) th/mm3 Baso # (Auto) 0.1 (0.0-0.2) th/mm3 WBC Differential . Diff Scan Differential Comment Auto diff final PT (9.8-11.6) sec INR Ratio Sodium (136-145) meq/L Potassium (3.5-5.1) meq/L Chloride (98-107) meq/L Carbon Dioxide (21.0-32.0) meq/L Anion Gap (5-15) meq/L BUN (7-18) mg/dL Creatinine (0.60-1.30) mg/dL Estimated GFR (>89) mL/min Random Glucose (74-106) mg/dL Lactic Acid 0.6 (0.4-2.0) mmol/L Calcium (8.5-10.1) mg/dL Total Bilirubin (0.2-1.0) mg/dL AST (15-37) U/L ALT (12-78) U/L Alkaline Phosphatase (45-117) U/L C-Reactive Protein 15.00 H (0.00-0.30) mg/dL Total Protein (6.4-8.2) g/dL Albumin (3.4-5.0) g/dL Lipase (73-393) U/L Urine Color (Yellw/Straw) Urine Clarity (Clear) Urine pH (5.0-8.5) Ur Specific [place] (1.002-1.035) Urine Protein (Neg-Trace) mg/dL Urine Glucose (UA) (Negative) mg/dL Urine Ketones (Negative) mg/dL Urine Occult Blood (Negative) Urine Nitrate (Negative) Urine Bilirubin (Negative) Urine Urobilinogen (Less than 2) mg/dL Ur Leukocyte Esterase (Negative) Urine RBC (0-3) /hpf Urine WBC (0-5) /hpf Hyaline Casts (0-3) /lpf Urine Mucus (Occasional) /lpf Micro UA Comment Urine Culture Comments 04/16/18 04/17/18 Range/Units 07:24 15:37 WBC (4.0-11.0) th/mm3 RBC (4.50-5.90) mil/mm3 Hgb (13.0-17.0) gm/dL Hct (39.0-51.0) % MCV (80.0-100.0) fL MCH (27.0-34.0) pg MCHC (32.0-36.0) % RDW (11.6-17.2) % Plt Count (150-450) th/mm3 MPV (7.0-11.0) fL Prelim Diff (Auto) Neut % (Auto) (16.0-70.0) % Lymph % (Auto) (9.0-44.0) % [place] % (Auto) (0.0-8.0) % Eos % (Auto) (0.0-4.0) % Baso % (Auto) (0.0-2.0) % Neut # (Auto) (1.8-7.7) th/mm3 Lymph # (Auto) (1.0-4.8) th/mm3 [place] # (Auto) (0.0-0.9) th/mm3 Eos # (Auto) (0.0-0.4) th/mm3 Baso # (Auto) (0.0-0.2) th/mm3 WBC Differential Diff Scan Differential Comment PT 11.4 (9.8-11.6) sec INR 1.1 Ratio Sodium 140 (136-145) meq/L Potassium 4.0 (3.5-5.1) meq/L Chloride 105 (98-107) meq/L Carbon Dioxide 24.8 (21.0-32.0) meq/L Anion Gap 10 (5-15) meq/L BUN 15 (7-18) mg/dL Creatinine 0.98 (0.60-1.30) mg/dL Estimated GFR 74 L (>89) mL/min Random Glucose 89 (74-106) mg/dL Lactic Acid (0.4-2.0) mmol/L Calcium 8.9 (8.5-10.1) mg/dL Total Bilirubin 0.4 (0.2-1.0) mg/dL AST 14 L (15-37) U/L ALT 13 (12-78) U/L Alkaline Phosphatase 119 H (45-117) U/L C-Reactive Protein (0.00-0.30) mg/dL Total Protein 7.5 D (6.4-8.2) g/dL Albumin 2.3 L (3.4-5.0) g/dL Lipase (73-393) U/L Urine Color (Yellw/Straw) Urine Clarity (Clear) Urine pH (5.0-8.5) Ur Specific [place] (1.002-1.035) Urine Protein (Neg-Trace) mg/dL Urine Glucose (UA) (Negative) mg/dL Urine Ketones (Negative) mg/dL Urine Occult Blood (Negative) Urine Nitrate (Negative) Urine Bilirubin (Negative) Urine Urobilinogen (Less than 2) mg/dL Ur Leukocyte Esterase (Negative) Urine RBC (0-3) /hpf Urine WBC (0-5) /hpf Hyaline Casts (0-3) /lpf Urine Mucus (Occasional) /lpf Micro UA Comment Urine Culture Comments Imaging Data Attestation: I personally reviewed and interpreted this imaging study as follows : Radiologist's impression: Abdomen/Pelvis CT 04/15/18 19:30 CONCLUSION: 1. Mild diverticulosis with no inflammatory change. 2. No visualized etiology to explain the patient's pain. Chest X-Ray 04/15/18 20:49 CONCLUSION: Rounded area of abnormal opacity in the right upper lobe at site of prior abnormality seen on CT. This is of concern for recurrent infiltrate or possible mass. Abdomen Ultrasound 04/16/18 00:00 CONCLUSION: 1. No acute findings. Probable small gallbladder polyp. No hydronephrosis. Echogenic, small right kidney. Chest CT 04/16/18 09:00 CONCLUSION: 1. Worrisome mass in the posterior right upper lobe most characteristic of primary bronchogenic carcinoma. The mass is amenable to CT-guided core biopsy. 2. Right hilar adenopathy and prominent aortopulmonary window node. 3. Further evaluation with PET/CT would be helpful for staging. Discharge Plan Discharge Disposition Patient Disposition: 01 Discharge Home Discharge Condition Condition: Stable Physicians Team ED Provider: Amado Buitrago ED Midlevel Provider: Amol Baxter Primary Care Provider: UNKNOWN, Attending Provider: Pasquale Bingham Other Providers: Bartolome Thomas Ammar ; [employer] Status ED Status: Left Department Discharge Information Discharge Date/Time: 04/15/18 22:40
[2018-04-15 20:52] LABS: Albumin 2.6 g/dL (3.4-5.0); Anion Gap 11 meq/L (5-15); Aspartate Aminotransferase 30 U/L (15-37); Blood Urea Nitrogen 19 mg/dL (7-18); Calcium 9.6 mg/dL (8.5-10.1); Carbon Dioxide 23.2 meq/L (21.0-32.0); Chloride 103 meq/L (98-107); Glomerular Filtration Rate 65 mL/min (>89); Glucose,Random 98 mg/dL (74-106); Lipase 221 U/L (73-393); Sodium 137 meq/L (136-145)
[2018-04-15 20:53] LABS: Potassium 4.6 meq/L (3.5-5.1)
--- NOTE | 2018-04-15 21:22 | XR ---
EXAM DATE: 04/15/2018 9:10 PM EDT AGE/SEX: 77 years / Male INDICATIONS: Cough and chest pain. History of recent abnormal chest CT demonstrating a 3.4 x 3.3 cm area of airspace consolidation in the right upper lobe. CLINICAL DATA: This is the patient's initial encounter. Patient reports that signs and symptoms have been present for 2 days and indicates a pain score of 3/10. MEDICAL/SURGICAL HISTORY: Carcinoma, prostatic. None. COMPARISON: [facility] [place], CT THORAX W CONTRAST, 03/12/2017. . FINDINGS: A single AP erect portable view of the chest was obtained and demonstrates an abnormal rounded opacit y in the right upper lobe. This measures up to approximately 4.3 x 4.1 cm in diameter with poorly def ined margins. The left lung is clear. The heart size is at the upper limits of normal. Atheroscleroti c changes are again noted in the aorta. The bony thorax is intact. CONCLUSION: Rounded area of abnormal opacity in the right upper lobe at site of prior abnormality seen on CT. Thi s is of concern for recurrent infiltrate or possible mass. Electronically signed by: Peyman Rose MD 04/15/2018 9:20 PM EDT
[2018-04-15] MEDS ORDERED: Temazepam 15 MG Capsule PO PRN (21:57)
[2018-04-15] MEDS ORDERED: Acetaminophen 325 MG Tablet PO PRN (21:57)
[2018-04-15] MEDS ORDERED: Bisacodyl 10 MG Supp RECTAL PRN (21:57)
--- NOTE | 2018-04-15 21:58 | P.HPIM ---
History of Present Illness Primary Care Physician: UNKNOWN History of Present Illness: This is a 77-year-old male with a PMH of Prostate CA who presented to ER with complaints of back and abdominal pain x2 days. Pt denies injury/ trauma. Abdominal pain is generalized, intermittent, moderate-severe, 8/10, non -radiating, no associated nausea/vomiting or diarrhea. Back pain is moderate, sore, worse w/ movement. Denies fever, chills or sick contacts. States he completed Chemo/Radiation for Prostate CA approx 2-3 months ago. On arrival, BP 163/70, HR 78, O2 sat 100% on RA, Afebrile. WBC 17.2. Hemoglobin 10.8. Chemistry essentially unremarkable except for BUN 19, GFR 65. CRP 15. UA negative for UTI. CXR w/ rounded area of abnormal opacity RUL seen on prior CT , possible recurrent infiltrate vs. mass. CT Abd/Pelvis w/ no acute findings. S/p Morphine/Zofran in ER w/ some improvement. - Diagnosis (1) Intractable pain (2) Leukocytosis (3) Lung mass (4) Prostate CA Review of Systems All other systems reviewed negative except as stated in HPI PMFSH - History History Provided By: Patient - Medical History Medical History: Medical History (Last Reviewed 04/15/18 @ 21:37 by DRAKE Vogel) History of prostate cancer - Tobacco History Second Hand Smoke Exposure: No Tobacco Use In Past 30 Days: No Smoking Status: Never smoker - Alcohol History How Often Do You Have a Drink Containing Alcohol: Monthly or less - Substance Use History Substance History: No History of Abuse - Travel History Recent Travel in the [place] Within the Last 8 Weeks: No Recent Travel Out of the Country Within the Last 8 Weeks: No - Immunization History Tetanus Immunization: Unsure Hx Influenza Vaccine This Season: Yes Medications and Allergies Active Medications: Active Medications Hydrocodone Bitart/Acetaminophen ([place] 5/325) 1 tab PO Q4H PRN PRN Reason: PAIN 3-5 Morphine Sulfate (Morphine Inj) 2 mg IV.PUSH Q4H PRN PRN Reason: PAIN 6-10 Sodium Chloride (Ns Flush) 2 ml IV.FLUSH PRN PRN PRN Reason: FLUSH AFTER USING IV ACCESS Allergies Allergy/AdvReac Type Severity Reaction Status Date / Time penicillin G Allergy Unknown RASH Verified 07/21/18 19:03 Home Medications Medication Instructions Recorded Confirmed Type No Known Home Medications 04/15/18 04/15/18 History Exam Vital signs: Vital Signs 04/15/18 17:58 04/15/18 19:54 Temperature 98.9 F Pulse Rate 78 81 Respiratory Rate 18 16 Blood Pressure 163/70 H 137/78 Pulse Oximetry 100 98 Intake & Output 04/15/18 04/15/18 04/16/18 06:59 18:59 06:59 Weight 67.585 kg Narrative: PE: GENERAL: Very pleasant elderly male in no acute distress. Multiple family members at bedside. HEENT: PERRLA, EOMI. No scleral icterus or conjunctival pallor. No lid lag or facial droop. CARDIOVASCULAR: Regular rate and rhythm. No obvious murmurs to auscultation. No chest tenderness to palpation. RESPIRATORY: No obvious rhonchi or wheezing. Clear to auscultation. Breath sounds equal bilaterally. GASTROINTESTINAL: Abdomen soft, generalized tenderness to palpation, nondistended. BS normal. MUSCULOSKELETAL: Extremities without clubbing, cyanosis, or edema. No obvious deformities. NEUROLOGICAL: Awake, alert and oriented x4. No focal neurologic deficits. Moving both upper and lower extremities spontaneously. Results - Labs CBC & Chem 7: 04/15/18 19:50 04/15/18 19:50 Labs: Short CBC 04/15/18 Range/Units 19:50 WBC 17.2 H (4.0-11.0) th/mm3 Hgb 10.8 L (13.0-17.0) gm/dL Hct 33.7 L (39.0-51.0) % Plt Count 392 (150-450) th/mm3 BMP 04/15/18 19:50 Sodium 137 Potassium 4.6 Chloride 103 Carbon Dioxide 23.2 BUN 19 H Creatinine 1.10 Calcium 9.6 Liver Function 04/15/18 Range/Units 19:50 Total Bilirubin 0.4 (0.2-1.0) mg/dL AST 30 (15-37) U/L ALT 17 (12-78) U/L Alkaline Phosphatase 133 H (45-117) U/L Albumin 2.6 L (3.4-5.0) g/dL Urine 04/15/18 Range/Units 19:50 Urine Color Sarah (Yellw/Straw) Urine Clarity Hazy H (Clear) Urine pH 5.0 (5.0-8.5) Ur Specific [place] 1.024 (1.002-1.035) Urine Protein Negative (Neg-Trace) mg/dL Urine Glucose (UA) Negative (Negative) mg/dL - Imaging Impressions Abdomen/Pelvis CT 04/15/18 19:30 CONCLUSION: 1. Mild diverticulosis with no inflammatory change. 2. No visualized etiology to explain the patient's pain. Chest X-Ray 04/15/18 20:49 CONCLUSION: Rounded area of abnormal opacity in the right upper lobe at site of prior abnormality seen on CT. This is of concern for recurrent infiltrate or possible mass. Caprini VTE Risk Assessment Caprini VTE Risk Assessment: No/Low Risk (score <= 1) Caprini Risk Assessment Model: Point Value = 1 Point Value = 2 Point Value = 3 Point Value = 5 Age 41-60 Minor surgery BMI > 25 kg/m2 Swollen legs Varicose veins or History of unexplained or recurrent spontaneous Oral contraceptives or hormone replacement Sepsis (< 1 month) Serious lung disease, including pneumonia (< 1 month) Abnormal pulmonary function Acute myocardial infarction Congestive heart failure (< 1 month) History of inflammatory bowel disease Medical patient at bed rest Age 61-74 Arthroscopic surgery Major open surgery (> 45 min) Laparoscopic surgery (> 45 min) Malignancy Confined to bed (> 72 hours) Immobilizing plaster cast Central venous access Age >= 75 History of VTE Family history of VTE Factor V Leiden Prothrombin [id number] Lupus anticoagulant Anticardiolipin antibodies Elevated serum homocysteine Heparin-induced thrombocytopenia Other congenital or acquired thrombophilia Stroke (< 1 month) Elective arthroplasty Hip, pelvis, or leg fracture Acute spinal cord injury (< 1 month) Prophylaxis Regimen: Total Risk Factor Score Risk Level Prophylaxis Regimen 0-1 Low Early ambulation 2 Moderate Order ONE of the following: *Sequential Compression Device (SCD) *Heparin 5000 units SQ BID 3-4 Higher Order ONE of the following medications: *Heparin 5000 units SQ TID *Enoxaparin/Lovenox 40 mg SQ daily (WT < 150 kg, CrCl > 30 mL/min) *Enoxaparin/Lovenox 30 mg SQ daily (WT < 150 kg, CrCl > 10-29 mL/min) *Enoxaparin/Lovenox 30 mg SQ BID (WT < 150 kg, CrCl > 30 mL/min) AND/OR *Sequential Compression Device (SCD) 5 or more Highest Order ONE of the following medications: *Heparin 5000 units SQ TID (Preferred with Epidurals) *Enoxaparin/Lovenox 40 mg SQ daily (WT < 150 kg, CrCl > 30 mL/min) *Enoxaparin/Lovenox 30 mg SQ daily (WT < 150 kg, CrCl > 10-29 mL/min) *Enoxaparin/Lovenox 30 mg SQ BID (WT < 150 kg, CrCl > 30 mL/min) AND *Sequential Compression Device (SCD) Assessment and Plan - Assessment (1) Intractable pain Code(s): R52 - Pain, unspecified Status: Acute (2) Leukocytosis Code(s): D72.829 - Elevated white blood cell count, unspecified Status: Acute (3) Lung mass Code(s): R91.8 - Other nonspecific abnormal finding of lung field Status: Acute (4) Prostate CA Code(s): C61 - Malignant neoplasm of prostate Status: Acute - Plan A/P: 1. Intractable Pain: c/o back/abdominal pain, no acute injury, CT Abd/Pelvis w / no acute findings, images reviewed by me. Pain improved after Morphine IV, will continue w/ analgesics/antiemetics as needed. 2. Leukocytosis: WBC 17, Afebrile, no cough, nausea, vomiting or diarrhea. CXR w/ questionable infiltrate vs mass, images reviewed by me, will start on empiric Levaquin IV for possible PNA> 3. Lung Mass: CXR w/ possible lung mass similar to previous imaging, ? recurrent infiltrate vs mass. CT Chest 03/12/17 reviewed-showing RUL wedge- shaped consolidation 3.3 x 3.4 cm, will obtain CT Chest w/ IV Contrast tomorrow as pt already received contrast load w/ CT Abd/Pelvis. 4. Prostate CA: s/p chemo/radiation, per patient and family he completed treatment approx 2-3 months ago. Outpatient follow up as scheduled. 5. DVT Prophylaxis: SCD/Teds 6. Social work for d/c planning as needed. 7. Case discussed w/ ER physician at length, labs/records/imaging reviewed by me.
[2018-04-15] MEDS: Sod Chloride 0.9% Inj 1,000 ML IV.CONT SCH (22:19)
[2018-04-15] MEDS: Morphine Inj 4 MG/ML Vial IV.PUSH PRN (23:20)
--- NOTE | 2018-04-16 08:06 | CT ---
EXAM DATE: 04/16/2018 7:54 AM EDT AGE/SEX: 77 years / Male INDICATIONS: Abnormal chest x-ray examination with masslike opacity in right upper lobe. History of prior abnormality. CLINICAL DATA: This is the patient's initial encounter. Patient reports that signs and symptoms have been present for 1 day and indicates a pain score of 0/10. MEDICAL/SURGICAL HISTORY: Carcinoma, prostatic. None. RADIATION DOSE: 9.40 CTDI (mGy) COMPARISON: [facility] – [place] THORAX W CONTRAST, 03/12/2017. . TECHNIQUE: Multiple contiguous axial images were obtained through the chest during bolus infusion of 70 ml Omnipaque 350 (iohexol) nonionic water-soluble contrast as a single exam dose. Images were obtained in suspended respiration using multiple row detector helical technique. Using automated exp osure control and adjustment of the mA and/or kV according to patient size, radiation dose was kept a s low as reasonably achievable to obtain optimal diagnostic quality images. DICOM format image data is available electronically for review and comparison. FINDINGS: Lungs: The previously noted area of consolidative opacity in the posterior right upper lobe has incr eased in size and is now more masslike in configuration. There is central low attenuation with enhanc ement around the periphery. This now measures up to 4.2 x 4.1 cm in greatest diameter. There is surro unding mild consolidation. Abnormalities pleural-based. There is mild streaky opacity now noted in th e posterior left upper lobe. There are no new masses or nodules. Mediastinum: There is right hilar adenopathy. There is a prominent aortopulmonary window node noted as well measuring up to approximately 1.9 cm in greatest diameter. The heart size is within normal li mits. There are coronary artery calcifications. There is no pericardial effusion. Pleurae: No evidence of a pleural effusion. Axillae: Unremarkable. Bony Structures: Osteopenia, mild degenerative change and scoliosis are again noted. Miscellaneous: The examination was extended to include the upper abdomen, and both adrenal glands ar e normal in size and configuration. There is mild hepatic steatosis. There is a tiny low-density lesi on in the anterior left lobe of the liver measuring 3 mm. CONCLUSION: 1. Worrisome mass in the posterior right upper lobe most characteristic of primary bronchogenic carc inoma. The mass is amenable to CT-guided core biopsy. 2. Right hilar adenopathy and prominent aortopulmonary window node. 3. Further evaluation with PET/CT would be helpful for staging. Electronically signed by: Peyman Rose MD 04/16/2018 8:05 AM EDT
[2018-04-16 08:27] LABS: Baso # (Auto) 0.1 th/mm3 (0.0-0.2); Baso % (Auto) 0.8 % (0.0-2.0); Eos # (Auto) 0.2 th/mm3 (0.0-0.4); Eos % (Auto) 2.9 % (0.0-4.0); Hematocrit 32.1 % (39.0-51.0); Hemoglobin 10.4 gm/dL (13.0-17.0); Lymph # (Auto) 0.7 th/mm3 (1.0-4.8); Lymph % (Auto) 9.1 % (9.0-44.0); Mean Corpuscular HGB Conc 32.5 % (32.0-36.0); Mean Corpuscular Hemoglobin 26.3 pg (27.0-34.0); Mean Platelet Volume 7.6 fL (7.0-11.0); Mono # (Auto) 0.7 th/mm3 (0.0-0.9); Mono % (Auto) 10.2 % (0.0-8.0); Neut # (Auto) 5.7 th/mm3 (1.8-7.7); Platelet Count 337 th/mm3 (150-450); Red Blood Count 3.96 mil/mm3 (4.50-5.90); Red Cell Distribution Width 14.2 % (11.6-17.2); White Blood Count 7.3 th/mm3 (4.0-11.0)
[2018-04-16 08:50] LABS: Albumin 2.3 g/dL (3.4-5.0); Anion Gap 10 meq/L (5-15); Aspartate Aminotransferase 14 U/L (15-37); Blood Urea Nitrogen 15 mg/dL (7-18); Calcium 8.9 mg/dL (8.5-10.1); Carbon Dioxide 24.8 meq/L (21.0-32.0); Chloride 105 meq/L (98-107); Glomerular Filtration Rate 74 mL/min (>89); Glucose,Random 89 mg/dL (74-106); Sodium 140 meq/L (136-145)
[2018-04-16 08:52] LABS: Alanine Aminotransferase 13 U/L (12-78)
[2018-04-16 08:54] LABS: Alkaline Phosphatase 119 U/L (45-117); Total Protein 7.5 g/dL (6.4-8.2)
[2018-04-16] MEDS: Sod Chloride 0.9% Inj 1,000 ML IV.CONT SCH ×2 (09:08→13:26)
[2018-04-16] MEDS: Senna/Docusate Sodium 8.6/50 MG Tablet PO SCH ×2 (09:12→20:58)
--- NOTE | 2018-04-16 13:15 | P.PN ---
Subjective Interval history: Follow up visit abdominal pain, Lung Mass vs PNA. Patient seen and examined today. His abdominal pain 2 days ago 8/ midepigastric towards the right side does not know what aggravates or relieves it. He was kept n.p.o. overnight. Will restart diet for now as tolerated. Denies SOB/ dyspnea. Denies chest pain , palpitations, headaches, dizziness. Denies fevers, chills, n/v/d. Denies dysuria. Physical Exam Vital signs: Vital Signs 04/15/18 17:58 04/15/18 19:54 04/15/18 22:23 Temperature 98.9 F 98 F Pulse Rate 78 81 71 Respiratory Rate 18 16 16 Blood Pressure 163/70 H 137/78 127/67 Pulse Oximetry 100 98 04/15/18 22:29 04/15/18 22:48 04/16/18 00:00 Temperature 97.7 F 97.7 F Pulse Rate 79 77 Respiratory Rate 18 18 Blood Pressure 137/66 106/58 L Pulse Oximetry 94 L 95 94 L 04/16/18 04:00 04/16/18 08:00 Temperature 97.7 F 97.6 F Pulse Rate 71 71 Respiratory Rate 18 20 Blood Pressure 103/53 L 148/77 H Pulse Oximetry 96 96 Intake & Output 04/15/18 04/16/18 04/16/18 18:59 06:59 18:59 Intake Total 1150 / 1150 0 / 0 Output Total 600 / 600 200 / 200 Balance 550 / 550 -200 / -200 Weight 67.585 kg 56.8 kg Intake: IV 150 / 150 Levaquin 750 mg Premix Inj 150 150 / 150 ML @ 100 mls/hr IV.SIG Q24H [facility] Rx#:[id number] Oral 0 / 0 Other 1000 / 1000 Output: Urine 600 / 600 200 / 200 Other: Other Intake Source Saline Solution # Voids 2 Date of Last Bowel Movement 04/15/18 Weight On Admission 65.771 kg Narrative: GENERAL: This is a well-nourished, well-developed patient, in no apparent distress. SKIN: Warm and dry. HEENT: Normocephalic. Pupils equal round and reactive. Nose without bleeding. Airway patent. NECK: Trachea midline. CARDIOVASCULAR: Regular rate and rhythm without murmurs, gallops, or rubs. RESPIRATORY: Clear to auscultation. Breath sounds equal bilaterally. No wheezes , rales, or rhonchi. GASTROINTESTINAL: Abdomen soft. Bowel Sounds hypoactive. Abdominal distention, tenderness to palpate right lower and upper quadrant, midepigastric area. MUSCULOSKELETAL: Extremities without clubbing, cyanosis, or edema. NEUROLOGICAL: Awake and alert. Oriented to time, place, person. No focal neuro deficit. Moves all extremities. Normal speech. Results - Labs CBC & Chem 7: 04/16/18 07:24 04/16/18 07:24 Laboratory Results - last 24 hr 04/15/18 04/15/18 04/15/18 19:50 19:50 19:50 WBC 17.2 H RBC 4.17 L Hgb 10.8 L Hct 33.7 L MCV 80.8 MCH 26.0 L MCHC 32.2 RDW 14.4 Plt Count 392 MPV 8.2 Prelim Diff (Auto) Slide review pending Neut % (Auto) 71.1 H Lymph % (Auto) 14.3 Sully % (Auto) 10.3 H Eos % (Auto) 3.2 Baso % (Auto) 1.1 Neut # (Auto) 12.2 H Lymph # (Auto) 2.5 Sully # (Auto) 1.8 H Eos # (Auto) 0.5 H Baso # (Auto) 0.2 WBC Differential . Diff Scan Auto diff confirmed Differential Comment . Sodium 137 Potassium 4.6 Chloride 103 Carbon Dioxide 23.2 Anion Gap 11 BUN 19 H Creatinine 1.10 Estimated GFR 65 L Random Glucose 98 Lactic Acid Calcium 9.6 Total Bilirubin 0.4 AST 30 ALT 17 Alkaline Phosphatase 133 H C-Reactive Protein Total Protein 8.8 H Albumin 2.6 L Lipase 221 Urine Color Sarah Urine Clarity Hazy H Urine pH 5.0 Ur Specific [place] 1.024 Urine Protein Negative Urine Glucose (UA) Negative Urine Ketones Negative Urine Occult Blood Negative Urine Nitrate Negative Urine Bilirubin Negative Urine Urobilinogen Less than 2 Ur Leukocyte Esterase Negative Urine RBC 1 Urine WBC 1 Hyaline Casts 6 Urine Mucus Moderate H Micro UA Comment Culture not ind Urine Culture Comments Culture not ind 04/15/18 04/15/18 04/16/18 19:50 20:50 07:24 WBC 7.3 D RBC 3.96 L Hgb 10.4 L Hct 32.1 L MCV 81.0 MCH 26.3 L MCHC 32.5 RDW 14.2 Plt Count 337 MPV 7.6 Prelim Diff (Auto) Neut % (Auto) 77.0 H Lymph % (Auto) 9.1 Sully % (Auto) 10.2 H Eos % (Auto) 2.9 Baso % (Auto) 0.8 Neut # (Auto) 5.7 Lymph # (Auto) 0.7 L Sully # (Auto) 0.7 Eos # (Auto) 0.2 Baso # (Auto) 0.1 WBC Differential . Diff Scan Differential Comment Auto diff final Sodium Potassium Chloride Carbon Dioxide Anion Gap BUN Creatinine Estimated GFR Random Glucose Lactic Acid 0.6 Calcium Total Bilirubin AST ALT Alkaline Phosphatase C-Reactive Protein 15.00 H Total Protein Albumin Lipase Urine Color Urine Clarity Urine pH Ur Specific [place] Urine Protein Urine Glucose (UA) Urine Ketones Urine Occult Blood Urine Nitrate Urine Bilirubin Urine Urobilinogen Ur Leukocyte Esterase Urine RBC Urine WBC Hyaline Casts Urine Mucus Micro UA Comment Urine Culture Comments 04/16/18 07:24 WBC RBC Hgb Hct MCV MCH MCHC RDW Plt Count MPV Prelim Diff (Auto) Neut % (Auto) Lymph % (Auto) [place]ully % (Auto) Eos % (Auto) Baso % (Auto) Neut # (Auto) Lymph # (Auto) Sully # (Auto) Eos # (Auto) Baso # (Auto) WBC Differential Diff Scan Differential Comment Sodium 140 Potassium 4.0 Chloride 105 Carbon Dioxide 24.8 Anion Gap 10 BUN 15 Creatinine 0.98 Estimated GFR 74 L Random Glucose 89 Lactic Acid Calcium 8.9 Total Bilirubin 0.4 AST 14 L ALT 13 Alkaline Phosphatase 119 H C-Reactive Protein Total Protein 7.5 D Albumin 2.3 L Lipase Urine Color Urine Clarity Urine pH Ur Specific [place] Urine Protein Urine Glucose (UA) Urine Ketones Urine Occult Blood Urine Nitrate Urine Bilirubin Urine Urobilinogen Ur Leukocyte Esterase Urine RBC Urine WBC Hyaline Casts Urine Mucus Micro UA Comment Urine Culture Comments - Imaging Impressions Abdomen/Pelvis CT 04/15/18 19:30 CONCLUSION: 1. Mild diverticulosis with no inflammatory change. 2. No visualized etiology to explain the patient's pain. Chest X-Ray 04/15/18 20:49 CONCLUSION: Rounded area of abnormal opacity in the right upper lobe at site of prior abnormality seen on CT. This is of concern for recurrent infiltrate or possible mass. Chest CT 04/16/18 09:00 CONCLUSION: 1. Worrisome mass in the posterior right upper lobe most characteristic of primary bronchogenic carcinoma. The mass is amenable to CT-guided core biopsy. 2. Right hilar adenopathy and prominent aortopulmonary window node. 3. Further evaluation with PET/CT would be helpful for staging. Assessment and Plan - Assessment (1) Intractable pain Code(s): R52 - Pain, unspecified Status: Acute (2) Leukocytosis Code(s): D72.829 - Elevated white blood cell count, unspecified Status: Acute (3) Lung mass Code(s): R91.8 - Other nonspecific abnormal finding of lung field Status: Acute (4) Prostate CA Code(s): C61 - Malignant neoplasm of prostate Status: Acute - Plan 77-year-old male with a PMH of Prostate CA who presented to ER with complaints of back and abdominal pain x2 days Abdominal pain, diverticulosis Intractable Pain: c/o back/abdominal pain, no acute injury -CT Abd/Pelvis w/ no acute findings, mild diverticulosis without inflammatory change. -continue w/ analgesics/antiemetics as needed -Abdominal US -Liver enzymes and Lipase WNL -Restart diet, if with n/v or persistent pain, will consult GI Lung Mass Vs Acute PNA, CAP Leukocytosis: WBC 17, Afebrile, no cough, nausea, vomiting or diarrhea. -CXR w/ possible lung mass similar to previous imaging, ?recurrent infiltrate vs mass. CT Chest 03/12/17 reviewed-showing RUL wedge-shaped consolidation 3.3 x 3.4 cm, will obtain CT Chest w/ IV Contrast tomorrow as pt already received contrast load w/ CT Abd/Pelvis. -CT Chest showed Worrisome mass in the posterior right upper lobe most characteristic of primary bronchogenic carcinoma. The mass is amenable to CT- guided core biopsy. 2. Right hilar adenopathy and prominent aortopulmonary window node. 3. Further evaluation with PET/CT would be helpful for staging -on empiric Levaquin IV for possible PNA -Consult Pulmonology possible Biopsy Prostate CA, Hx -s/p chemo/radiation, per patient and family he completed treatment approx 2- 3 months ago. -Outpatient follow up as scheduled. DVT Prophylaxis: SCD/Teds Code Status: Full Code Discussed Condition With: Patient, nurse Discharge Planning: Plan to DC home when clinically improved. Possible biopsy
--- NOTE | 2018-04-16 17:15 | US ---
EXAM DATE: 04/16/2018 4:44 PM EDT AGE/SEX: 77 years / Male INDICATIONS: Abdominal pain. CLINICAL DATA: This is the patient's initial encounter. Patient reports that signs and symptoms have been present for 1 week and indicates a pain score of 4/10. MEDICAL/SURGICAL HISTORY: . Prostate cancer. None. COMPARISON: [facility] – [place], CT ABDOMEN & PELVIS W/O CONTRAST, 04/15/2018. . MEASUREMENTS: Liver:__ 16.1 cm. Common Bile Duct:___ 5mm. Right Kidney:___8.4 x 3.7 x 3.2 cm. Left Kidney:___11.9 x 4.4 x 5.9 cm. Spleen:___11.4 cm. FINDINGS: Liver: Normal echotexture without focal lesion or ductal dilatation. Portal Vein: Hepatopedal flow seen in portal vein. Common Duct: No intraluminal mass or stone visualized. Gallbladder: Probable small gallbladder polyp measuring about 5 mm in maximal diameter. Pancreas: Not well visualized. Right Kidney: Increased echotexture. No mass or hydronephrosis. Left Kidney: 1.2 cm cyst present. Ascites: None Pleural Effusion: None Spleen: No focal lesion. Aorta: Non aneurysmal. IVC: Within normal limits Other: None. CONCLUSION: 1. No acute findings. Probable small gallbladder polyp. No hydronephrosis. Echogenic, small right ki dney. Electronically signed by: Amol Peña MD 04/16/2018 5:14 PM EDT
[2018-04-16] MEDS ORDERED: Bisacodyl 10 MG Supp RECTAL ONE (18:02)
--- NOTE | 2018-04-16 19:29 | MB ---
cc: Celina Madison MD DATE: 04/16/2018 REASON FOR CONSULTATION: Lung mass and COPD. HISTORY OF PRESENT ILLNESS: This is a 77-year-old male, who has been admitted via the emergency room with complaints of severe back and abdominal pain of 2-3 days' duration. The patient does have a history for prostate cancer and apparently had radiation therapy to the prostate and has also received chemotherapy according to him. This was done 3 months ago. He has had no significant cough, but has had some wheezing and shortness of breath, and denied chest pains, hemoptysis, nausea or vomiting. Upon arrival in the ER, he was sent for a chest x-ray, which showed a density in the right upper lung and a CT scan of the chest was done, which showed a mass lesion in the right upper lobe posteriorly. His white count was elevated to 17.2 and the patient's blood sugar was 98. He has a history for bronchitis, but is not aware of any chronic lung disease. PAST MEDICAL HISTORY: As mentioned above, significant for prostate cancer, status post prostate biopsy, radiation and chemo. Also, has a history of hypertension and a history of COPD. HABITS: The patient smoked approximately a pack and a half per day for over 40 years and quit 5 years ago. Alcohol use in the past, but not recently. FAMILY HISTORY: Noncontributory. Both parents of pneumonia. ALLERGIES: NO DRUG ALLERGIES ARE LISTED. REVIEW OF SYSTEMS: The patient is overweight. He has back pain. He is unable to ambulate. He has got pain radiating to the front of the abdomen and pelvic areas. No nausea, vomiting. No GI bleed. No leg or calf muscle pain. He has joint pains of his extremities. He has no depression or anxiety. Denies headaches or blackouts and denies skin rash. PHYSICAL EXAMINATION: GENERAL: This obese, elderly male in no acute distress. VITAL SIGNS: He is not on oxygen, his blood pressure 160/80, pulse is 78, respirations 24, temperature 98.2. HEENT: Normocephalic. Pupils are reactive and equal. Tongue is moist. Nasal mucosa edematous. Throat is clear. NECK: Supple, without venous distention. Trachea midline. No thyroid enlargement. CHEST: Increased AP diameter with percussion. No resonance throughout. Breath sounds diminished at the periphery, with occasional wheezes in the upper lung glover. CARDIOVASCULAR: The heart sounds are regular, S1 and S2. No murmur. No S3 gallop. ABDOMEN: Soft, obese, without masses, no organomegaly, tenderness. Bowel sounds are active. EXTREMITIES: No clubbing or cyanosis. Peripheral pulses are diminished. Reflexes are 1+, with no gross motor deficits. NEUROLOGIC: Cranial nerves are grossly intact. The patient is unable to lift his legs and was unable to sit upright. However, he was able to move his legs and was able to roll from [id number]. RECTAL: Deferred. SKIN: No lesions observed. IMPRESSION: 1. Right upper lobe lung mass, rule out malignancy. 2. Severe back pain, possible radiculopathy. 3. History of prostate cancer. 4. Chronic obstructive pulmonary disease. 5. Hypertension. PLAN: The patient will be sent for a CT-guided lung biopsy of the mass. We will also continue with antibiotic coverage for possible obstructive pneumonia and Levaquin 750 mg IV daily will be continued. Nebulized DuoNeb solution added 4 times daily. A bedside pulmonary function study to be done with bronchodilators. The patient will have a coagulation profile done and MRI of the lumbosacral spine to be done when feasible and orthopedic consultation if necessary. O2 supplementation at 1-2 liters nasal cannula to maintain saturations greater than 92%. Thank you, Dr. Winn, for this consultation. I will follow the case with you. MD YAN Enamorado/VIJAY , 04:57 PM , 07:27 PM
[2018-04-17] MEDS: Sod Chloride 0.9% Inj 1,000 ML IV.CONT SCH ×3 (02:19→17:55)
--- NOTE | 2018-04-17 10:45 | P.CONGI ---
History of Present Illness Consult date: 04/17/18 Consult reason: Abdominal pain Chief complaint: leukocytosis, abdominal pain, right upper lobe History of Present Illness: This is a 77 yo M with PMH significant for prostate cancer S/P chemo and radiation that was completed 2-3 months ago who presented to the ER two days ago with complaints of abdominal and back pain that began two days prior. When asked about his pain pt points to his left flank area and states it wraps around into his back, states pain is constant and currently rates it a 6/10. However, exam reveals pt to be diffusely tender over his entire abdomen and when asked about it pt does agree that his whole abdomen hurts. Pt reports one episode of emesis yesterday after eating, denies any other nausea or vomiting. Has noticed some abdominal swelling. Pt denies heartburn. Has noticed a 15 pound weight loss but states this has been over the past nine months, also endorses a decrease in appetite. Of note, pt receiving treatment for prostate cancer during that time. Has never had EGD or colonoscopy. Denies ETOH and smoking. Denies significant GI family history. Of note, reports taking Ibuprofen almost every night for neck, back and arm pain. <Kierra Gagnon - Last Filed: 04/17/18 10:27> Review of Systems Gastrointestinal: Reports abdominal pain, Reports vomiting, Denies change in bowel habits, Denies heartburn <Kierra Gagnon - Last Filed: 04/17/18 10:27> PMFSH - History History Provided By: Patient, Family Member - Medical History Medical History: Medical History (Last Reviewed 04/15/18 @ 21:37 by DRAKE Vogel) History of prostate cancer - Tobacco History Second Hand Smoke Exposure: No Tobacco Use In Past 30 Days: No Smoking Status: Former smoker - Alcohol History How Often Do You Have a Drink Containing Alcohol: Monthly or less - Substance Use History Substance History: No History of Abuse - Travel History Recent Travel in the [place] Within the Last 8 Weeks: No Recent Travel Out of the Country Within the Last 8 Weeks: No - Immunization History Tetanus Immunization: Unsure Hx Influenza Vaccine This Season: Yes <Kierra Gagnon - Last Filed: 04/17/18 10:27> - Medical History Medical History: Medical History (Last Reviewed 04/15/18 @ 21:37 by DRAKE Vogel) History of prostate cancer <WestonadamsDarrenjohan - Last Filed: 04/17/18 17:19> Medications and Allergies Active Medications: Active Medications Acetaminophen (Tylenol) 650 mg PO Q4H PRN PRN Reason: Temp > 100.4 Hydrocodone Bitart/Acetaminophen ([place] 5/325) 1 tab PO Q4H PRN PRN Reason: PAIN 3-5 Hydrocodone Bitart/Acetaminophen ([place] 7.5/325) 1 tab PO Q4H PRN PRN Reason: PAIN SCALE 6 TO 10 Last Admin: 04/17/18 01:55 Dose: 1 tab Al Hydroxide/Mg Hydroxide (Milk Of Magnesia Liq) 30 ml PO Q12H PRN PRN Reason: Mild Constipation Last Admin: 04/16/18 14:53 Dose: 30 ml Albuterol (Duoneb Neb (Stefany)) 1 ampul NEB Q6HR WHILE AWAKE NEB STEFANY Last Admin: 04/17/18 08:36 Dose: 1 ampul Bisacodyl (Dulcolax Supp) 10 mg RECTAL DAILY PRN PRN Reason: SEVERE CONSITIPATION Sodium Chloride (Ns Inj) 1,000 mls @ 100 mls/hr IV.CONT .Q10H [facility] Last Admin: 04/17/18 06:56 Dose: Not Given Levofloxacin/Dextrose (Levaquin 750 Mg Premix Inj) 150 mls @ 100 mls/hr IV.SIG Q24H [facility] Last Admin: 04/16/18 21:07 Dose: 100 mls/hr Lactulose (Lactulose Liq) 30 ml PO DAILY PRN PRN Reason: SEVERE CONSITIPATION Morphine Sulfate (Morphine Inj) 2 mg IV.PUSH Q4H PRN PRN Reason: PAIN Breakthrough Last Admin: 04/15/18 23:20 Dose: 2 mg Ondansetron HCl (Zofran Odt) 4 mg PO Q6H PRN PRN Reason: NAUSEA OR VOMITING Prochlorperazine Edisylate (Compazine Inj) 10 mg IV.PUSH Q6H PRN PRN Reason: NAUSEA/VOMITING Senna/Docusate Sodium (Mariely-Colace) 1 tab PO BID STEFANY Last Admin: 04/16/18 20:58 Dose: 1 tab Sennosides (Senokot) 17.2 mg PO Q12H PRN PRN Reason: Moderate Constipation Sodium Chloride (Ns Flush) 2 ml IV.FLUSH PRN PRN PRN Reason: FLUSH AFTER USING IV ACCESS Last Admin: 04/15/18 23:21 Dose: 2 ml Temazepam (Restoril) 15 mg PO HS PRN PRN Reason: INSOMNIA <Kierra Gagnon - Last Filed: 04/17/18 10:27> Active Medications: Active Medications Acetaminophen (Tylenol) 650 mg PO Q4H PRN PRN Reason: Temp > 100.4 Hydrocodone Bitart/Acetaminophen ([place] 5/325) 1 tab PO Q4H PRN PRN Reason: PAIN 3-5 Hydrocodone Bitart/Acetaminophen ([place] 7.5/325) 1 tab PO Q4H PRN PRN Reason: PAIN SCALE 6 TO 10 Last Admin: 04/17/18 11:11 Dose: 1 tab Al Hydroxide/Mg Hydroxide (Milk Of Magnesia Liq) 30 ml PO Q12H PRN PRN Reason: Mild Constipation Last Admin: 04/16/18 14:53 Dose: 30 ml Albuterol (Duoneb Neb (Stefany)) 1 ampul NEB Q6HR WHILE AWAKE NEB [facility] Last Admin: 04/17/18 13:55 Dose: Not Given Bisacodyl (Dulcolax Supp) 10 mg RECTAL DAILY PRN PRN Reason: SEVERE CONSITIPATION Sodium Chloride (Ns Inj) 1,000 mls @ 100 mls/hr IV.CONT .Q10H [facility] Last Admin: 04/17/18 06:56 Dose: Not Given Levofloxacin/Dextrose (Levaquin 750 Mg Premix Inj) 150 mls @ 100 mls/hr IV.SIG Q24H [facility] Last Admin: 04/16/18 21:07 Dose: 100 mls/hr Lactulose (Lactulose Liq) 30 ml PO DAILY PRN PRN Reason: SEVERE CONSITIPATION Morphine Sulfate (Morphine Inj) 2 mg IV.PUSH Q4H PRN PRN Reason: PAIN Breakthrough Last Admin: 04/17/18 15:58 Dose: 2 mg Ondansetron HCl (Zofran Odt) 4 mg PO Q6H PRN PRN Reason: NAUSEA OR VOMITING Prochlorperazine Edisylate (Compazine Inj) 10 mg IV.PUSH Q6H PRN PRN Reason: NAUSEA/VOMITING Last Admin: 04/17/18 12:24 Dose: 10 mg Promethazine HCl (Phenergan Supp) 12.5 mg RECTAL Q4H PRN PRN Reason: NAUSEA OR VOMITING Last Admin: 04/17/18 16:01 Dose: 12.5 mg Senna/Docusate Sodium (Mariely-Colace) 1 tab PO BID STEFANY Last Admin: 04/17/18 10:56 Dose: Not Given Sennosides (Senokot) 17.2 mg PO Q12H PRN PRN Reason: Moderate Constipation Sodium Chloride (Ns Flush) 2 ml IV.FLUSH PRN PRN PRN Reason: FLUSH AFTER USING IV ACCESS Last Admin: 04/15/18 23:21 Dose: 2 ml Temazepam (Restoril) 15 mg PO HS PRN PRN Reason: INSOMNIA <Hemaidan,Ammar - Last Filed: 04/17/18 17:19> Allergies Allergy/AdvReac Type Severity Reaction Status Date / Time penicillin G Allergy Unknown RASH Verified 04/15/18 19:03 Home Medications Medication Instructions Recorded Confirmed Type No Known Home Medications 04/15/18 04/15/18 History Exam Vital signs: Vital Signs 04/16/18 12:00 04/16/18 14:00 04/16/18 19:39 Temperature 97.3 F L 98.4 F Pulse Rate 74 62 Respiratory Rate 19 21 Blood Pressure 135/75 155/72 H Pulse Oximetry 96 96 96 04/16/18 20:00 04/17/18 00:00 04/17/18 08:40 Temperature 97.8 F 98.1 F Pulse Rate 70 74 74 Respiratory Rate 20 20 12 Blood Pressure 125/60 112/55 L Pulse Oximetry 95 95 96 Intake & Output 04/16/18 04/17/18 04/17/18 18:59 06:59 18:59 Intake Total 1000 / 1000 480 / 480 Output Total 200 / 200 600 / 600 Balance 800 / 800 -120 / -120 Weight 56.7 kg Intake: IV 1000 / 1000 NS Inj 1,000 ML @ 100 mls/hr IV 1000 / 1000 .CONT .Q10H [facility] Rx#:[id number] Oral 0 / 0 480 / 480 Output: Urine 200 / 200 600 / 600 Other: Date of Last Bowel Movement 04/17/18 # Bowel Movements 1 - Constitutional no acute distress - Routine HEENT Exam Head: Present: normocephalic, atraumatic - Routine Respiratory Exam Present: wheezes. Absent: accessory muscle use - Routine Cardiovascular Exam Present: RRR - Routine Abdominal Exam Present: soft, normoactive bowel sounds, tenderness (diffuse tenderness ), distended. Absent: rebound, guarding, firm - Routine Skin Exam Present: dry, warm - Routine Neurological Exam Present: alert, oriented X3 <Kierra Gagnon - Last Filed: 04/17/18 10:27> Vital signs: Vital Signs 04/16/18 19:39 04/16/18 20:00 04/17/18 00:00 Temperature 97.8 F 98.1 F Pulse Rate 70 74 Respiratory Rate 20 20 Blood Pressure 125/60 112/55 L Pulse Oximetry 96 95 95 04/17/18 08:00 04/17/18 08:40 04/17/18 12:00 Temperature 97.4 F L 98 F Pulse Rate 79 74 68 Respiratory Rate 16 12 16 Blood Pressure 174/79 H 140/69 Pulse Oximetry 95 96 94 L Intake & Output 04/16/18 04/17/18 04/17/18 18:59 06:59 18:59 Intake Total 1000 / 1000 480 / 480 Output Total 200 / 200 600 / 600 200 / 200 Balance 800 / 800 -120 / -120 -200 / -200 Weight 56.7 kg Intake: IV 1000 / 1000 NS Inj 1,000 ML @ 100 mls/hr IV 1000 / 1000 .CONT .Q10H [facility] Rx#:[id number] Oral 0 / 0 480 / 480 Output: Urine 200 / 200 600 / 600 200 / 200 Other: Date of Last Bowel Movement 04/17/18 04/16/18 # Bowel Movements 1 <BlessingSlime spencer - Last Filed: 04/17/18 17:19> Results - Labs CBC & Chem 7: 04/16/18 07:24 04/16/18 07:24 - Imaging Impressions Abdomen Ultrasound 04/16/18 00:00 CONCLUSION: 1. No acute findings. Probable small gallbladder polyp. No hydronephrosis. Echogenic, small right kidney. <Kierra Gagnon - Last Filed: 04/17/18 10:27> - Labs CBC & Chem 7: 04/16/18 07:24 04/16/18 07:24 Labs: Laboratory Results - last 24 hr 04/17/18 15:37 PT 11.4 INR 1.1 <Slime Covarrubias - Last Filed: 04/17/18 17:19> Assessment and Plan - Plan Assessment: - Abdominal pain- When asked to localize pain, pt points to his left flank and states it wraps around to his back. States pain is constant, rates it a 6/10. However, exam reveals pt is tender to palpation over entire abdomen. States one episode of emesis yesterday after eating, denies any other nausea or vomiting. Denies heartburn. Reports weight loss of 15 lbs over 9 months, was on chemotherapy and radiation during this time for prostate cancer. Also has noticed a decreased appetite. Has had no BM in 3 days, states prior to this BMs were normal, denies blood in stool. Has never had EGD or colonoscopy. Of note, has been taking Ibuprofen almost every night for neck, back, and arm pain. Denies significant GI family history CT abdomen and pelvis WO IV contrast --> Mild diverticulosis with no inflammatory change. No visualized etiology to explain the patient's pain US abdomen --> No acute findings. Probable small gallbladder polyp. No hydronephrosis. Echogenic, small right kidney. - History of prostate cancer S/P chemotherapy and radiation - Mass lesion in right upper lobe- pulmonology following Plan: EGD and colonoscopy tomorrow Obtain consent Clear liquid today Golytely prep NPO after MN If negative, consider CT angio abdomen to rule out mesenteric ischemia Further recommendations based on clinical course Pt has been seen and examined by myself and Dr. Covarrubias and this note is written on his behalf <Kierra Gagnon - Last Filed: 04/17/18 10:27> - Plan Patient was seen and examined, agree with above note, patient complaining of abdominal pain and weight loss, imaging was not showing any significant lesion to explain the symptom, plan upper endoscopy and colonoscopy for ruling out malignancy <Slime Covarrubias - Last Filed: 04/17/18 17:19>
--- NOTE | 2018-04-17 10:55 | P.PN ---
Subjective Interval history: Follow up visit abdominal pain, Lung Mass vs PNA. Patient is seen and examined this morning resting in bed, in no acute distress. Had breakfast this morning with no nausea today or vomiting, denies any fevers, chills, shortness of breath , chest pain or dysuria. He reports abdominal pain which radiates to his left flank and back side. He describes abdominal pain as tightening. Some relief with p.o. medications although states he can only have this every, has not recently requested any IV morphine. Discussed with nurse who reports patient had breakfast this morning therefore could not have CT guided lung biopsy, clarification of ordered by pulmonary to be done today. Physical Exam Vital signs: Vital Signs 04/16/18 12:00 04/16/18 14:00 04/16/18 19:39 Temperature 36.3 C L 36.9 C Pulse Rate 74 62 Respiratory Rate 19 21 Blood Pressure 135/75 155/72 H Pulse Oximetry 96 96 96 04/16/18 20:00 04/17/18 00:00 04/17/18 08:40 Temperature 36.6 C 36.7 C Pulse Rate 70 74 74 Respiratory Rate 20 20 12 Blood Pressure 125/60 112/55 L Pulse Oximetry 95 95 96 Intake & Output 04/16/18 04/17/18 04/17/18 18:59 06:59 18:59 Intake Total 1000 / 1000 480 / 480 Output Total 200 / 200 600 / 600 Balance 800 / 800 -120 / -120 Weight 56.7 kg Intake: IV 1000 / 1000 NS Inj 1,000 ML @ 100 mls/hr IV 1000 / 1000 .CONT .Q10H [facility] Rx#:[id number] Oral 0 / 0 480 / 480 Output: Urine 200 / 200 600 / 600 Other: Date of Last Bowel Movement 04/17/18 # Bowel Movements 1 Narrative: GENERAL: This is a well-nourished, well-developed patient, in no apparent distress. SKIN: Warm and dry. HEENT: Normocephalic. Pupils equal round. Nose without bleeding. Airway patent. NECK: Trachea midline. CARDIOVASCULAR: Regular rate and rhythm without murmurs, gallops, or rubs. RESPIRATORY: Clear to auscultation. Breath sounds equal bilaterally. No wheezes , rales, or rhonchi. GASTROINTESTINAL: Abdomen soft, round,+ bowel sounds, tenderness to palpate mid and left upper and lower quadrants as well as midepigastric area. MUSCULOSKELETAL: Extremities without clubbing, cyanosis, or edema. NEUROLOGICAL: Awake and alert. Oriented to time, place, person. No focal neuro deficit. Moves all extremities. Normal speech. Results - Labs CBC & Chem 7: 04/16/18 07:24 04/16/18 07:24 - Imaging Impressions Abdomen Ultrasound 04/16/18 00:00 CONCLUSION: 1. No acute findings. Probable small gallbladder polyp. No hydronephrosis. Echogenic, small right kidney. Assessment and Plan - Assessment (1) Intractable pain Code(s): R52 - Pain, unspecified Status: Acute (2) Leukocytosis Code(s): D72.829 - Elevated white blood cell count, unspecified Status: Acute (3) Lung mass Code(s): R91.8 - Other nonspecific abnormal finding of lung field Status: Acute (4) Prostate CA Code(s): C61 - Malignant neoplasm of prostate Status: Acute - Plan 77-year-old male with a PMH of Prostate CA who presented to ER with complaints of back and abdominal pain x2 days Abdominal pain, diverticulosis Intractable Pain: c/o back/abdominal pain, no acute injury -CT Abd/Pelvis w/ no acute findings, mild diverticulosis without inflammatory change. -continue w/ analgesics/antiemetics as needed, add rectal Phenergan. -Abdominal US with no acute findings -Liver enzymes and Lipase WNL -GI consult, greatly appreciate assistance. Plans for EGD/colonoscopy tomorrow Lung Mass Vs Acute PNA, CAP Leukocytosis: WBC 17, Afebrile. -CXR w/ possible lung mass similar to previous imaging, ?recurrent infiltrate vs mass. CT Chest 03/12/17 reviewed-showing RUL wedge-shaped consolidation 3.3 x 3.4 cm, will obtain CT Chest w/ IV Contrast tomorrow as pt already received contrast load w/ CT Abd/Pelvis. -CT Chest showed Worrisome mass in the posterior right upper lobe most characteristic of primary bronchogenic carcinoma. The mass is amenable to CT- guided core biopsy. 2. Right hilar adenopathy and prominent aortopulmonary window node. 3. Further evaluation with PET/CT would be helpful for staging -on empiric Levaquin IV for possible PNA -Consult Pulmonology, plans for CT-guided biopsy tomorrow. Prostate CA, Hx -s/p chemo/radiation, per patient and family he completed treatment approx 2- 3 months ago. -Outpatient follow up as scheduled. DVT Prophylaxis: SCD/Teds Discussed Condition With: Discussed with patient and nurse. Discharge Planning: Ongoing nausea and vomiting with abdominal pain, GI workup in progress. Pulmonary following, plans for CT-guided biopsy tomorrow.
[2018-04-17] MEDS: Senna/Docusate Sodium 8.6/50 MG Tablet PO SCH ×2 (10:56→21:14)
[2018-04-17] MEDS ORDERED: Promethazine 12.5 MG Supp RECTAL PRN (13:36)
[2018-04-17] MEDS: Morphine Inj 4 MG/ML Vial IV.PUSH PRN (15:58)
[2018-04-17] MEDS ORDERED: PEG 3350/E-Lyte Soln 4000 ML Bottle PO ONE (16:00)
[2018-04-17 17:04] LABS: INR 1.1 Ratio; Prothrombin Time 11.4 sec (9.8-11.6)
--- NOTE | 2018-04-17 19:59 | P.PN ---
Subjective Interval history: He is waiting on Lung biopsy in am. Off o2 . Has pain in back. Will go for EGD and colonoscopy Physical Exam Vital signs: Vital Signs 04/16/18 20:00 04/17/18 00:00 04/17/18 08:00 Temperature 97.8 F 98.1 F 97.4 F L Pulse Rate 70 74 79 Respiratory Rate 20 20 16 Blood Pressure 125/60 112/55 L 174/79 H Pulse Oximetry 95 95 95 04/17/18 08:40 04/17/18 12:00 Temperature 98 F Pulse Rate 74 68 Respiratory Rate 12 16 Blood Pressure 140/69 Pulse Oximetry 96 94 L Intake & Output 04/17/18 04/17/18 04/18/18 06:59 18:59 06:59 Intake Total 480 / 480 Output Total 600 / 600 200 / 200 Balance -120 / -120 -200 / -200 Weight 56.7 kg Intake: Oral 480 / 480 Output: Urine 600 / 600 200 / 200 Other: Date of Last Bowel Movement 04/17/18 04/16/18 # Bowel Movements 1 Narrative: GENERAL: This is a well-nourished, well-developed patient, in mild distress. SKIN: Warm and dry. HEENT: Normocephalic. Pupils equal round. Nose without bleeding. Airway patent. NECK: Trachea midline. CARDIOVASCULAR: Regular rate and rhythm without murmurs, gallops, or rubs. RESPIRATORY: Breath sounds equal bilaterally. Bilateral wheezes, and no rales. GASTROINTESTINAL: Abdomen soft, round,+ bowel sounds, tenderness to palpate mid and left upper and lower quadrants as well as midepigastric area. MUSCULOSKELETAL: Extremities without clubbing, cyanosis, or edema. NEUROLOGICAL: Awake and alert. Oriented to time, place, person. No focal neuro deficit. Moves all extremities. Normal speech. Results - Labs CBC & Chem 7: 04/16/18 07:24 04/16/18 07:24 Laboratory Results - last 24 hr 04/17/18 15:37 PT 11.4 INR 1.1 Assessment and Plan - Assessment (1) COPD (chronic obstructive pulmonary disease) Code(s): J44.9 - Chronic obstructive pulmonary disease, unspecified Status: Acute (2) Pneumonia Code(s): J18.9 - Pneumonia, unspecified organism Status: Acute (3) Intractable pain Code(s): R52 - Pain, unspecified Status: Acute (4) Leukocytosis Code(s): D72.829 - Elevated white blood cell count, unspecified Status: Acute (5) Lung mass Code(s): R91.8 - Other nonspecific abnormal finding of lung field Status: Acute (6) Prostate CA Code(s): C61 - Malignant neoplasm of prostate Status: Acute - Plan 1. Will continue Duoneb nebs qid . 2. O2 2 L N/C PRN 3. Get PFT in am 4. CT Guided lung Biopsy in am. 5. Pain Control with [place] 5/325 mg q6h prn 6. Continue levaquin 750 Mg IV daily
[2018-04-18] MEDS: Sod Chloride 0.9% Inj 1,000 ML IV.CONT SCH ×2 (09:11→10:00)
[2018-04-18] MEDS ORDERED: Chlorhexidine Gluconate 2% 1 Pack (2 Cloths) TOPICAL SCH (09:15)
[2018-04-18] MEDS ORDERED: Metoprolol Tartrate 25 MG Tablet PO SCH (09:15)
[2018-04-18] MEDS ORDERED: Sodium Chlor 0.9% Inj 500 ML IV.SIG SCH (10:00)
--- NOTE | 2018-04-18 10:30 | GIPROC ---
[facility] [address] [facility]. [facility], [address] EGD PROCEDURE REPORT EXAM DATE: 04/18/2018 PATIENT NAME: Herb Benavides MR #: [id number] BIRTHDATE: 1940 ATTENDING: Slime Covarrubias MD ORDER #: [id number] HAY BALER: Janes Horton STATUS: inpatient INDICATIONS: The patient is a 77 yr old male here for an EGD due to Weight loss and abdominal pain PROCEDURE PERFORMED: EGD w/ biopsy MEDICATIONS: None and Per Anesthesia. TOPICAL ANESTHETIC: none CONSENT: The patient understands the risks and benefits of the procedure and understands that these risks include, but are not limited to: sedation, allergic reaction, infection, perforation and/or bleeding. Alternative means of evaluation and treatment include, among others: physical exam, x-rays, and/or surgical intervention. The patient elects to proceed with this endoscopic procedure. medical equipment was checked for proper function. Hand hygiene and appropriate measures for infection prevention was taken. After the risks, benefits and alternatives of the procedure were thoroughly explained, Informed consent was verified, confirmed and timeout was successfully executed by the treatment team. The patient was anesthetized with topical anesthesia and the EC-[id number] (Pedi C) endoscope was introduced through the mouth and advanced to the second portion of the duodenum. Retroflexed views revealed no abnormalities The gastroscope was then slowly withdrawn and removed. Irregular Z line biopsy from the EG junction. The endoscopy was otherwise normal. ADVERSE EVENTS: There were no complications. IMPRESSIONS: 1. Irregular Z line biopsy from the EG junction 2. Normal endoscopy otherwise 3. Retroflexed views revealed no abnormalities RECOMMENDATIONS: 1. Await biopsy results. Biopsy results will not be ready for 7-10 days. If you don't hear from us in two weeks, call our office for biopsy results. 2. Avoid NSAIDS PATIENT CONDITION: stable DISPOSITION: Inpatient REPEAT EXAM: Return as needed for EGD Depending on the biopsy result Slime Covarrubias MD eSigned: Slime Covarrubias MD 04/18/2018 10:30 AM cc:
--- NOTE | 2018-04-18 10:34 | GIPROC ---
[facility] [address] [facility]. [facility], [address] COLONOSCOPY PROCEDURE REPORT EXAM DATE: 04/18/2018 PATIENT NAME: Herb Benavides MR #: [id number] BIRTHDATE: 1940 ENDOSCOPIST: Slime Covarrubias MD ORDER #: [id number] GMAT INSTRUCTOR: Janes Horton STATUS: inpatient INDICATIONS: The patient is a 77 yr old male here for a colonoscopy due to abdominal pain, Weight loss, and anemia, non-specific PROCEDURE PERFORMED: Colonoscopy, diagnostic Colonoscopy, incomplete MEDICATIONS: None and Per Anesthesia. PREP QUALITY: poor ESTIMATED BLOOD LOSS: None CONSENT: The patient understands the risks and benefits of the procedure and understands that these risks include, but are not limited to: sedation, allergic reaction, infection, perforation and/or bleeding. Alternative means of evaluation and treatment include, among others: physical exam, x-rays, and/or surgical intervention. The patient elects to proceed with this endoscopic procedure. medical equipment was checked for proper function. Hand hygiene and appropriate measures for infection prevention was taken. After the risks, benefits and alternatives of the procedure were thoroughly explained, Informed consent was verified, confirmed and timeout was successfully executed by the treatment team. A digital exam revealed no abnormalities of the rectum The Pentax [id number] endoscope was introduced through the anus and advanced to the mid transverse colon. The instrument was then slowly withdrawn as the colon was fully examined. COLON FINDINGS: Poor prep unable to pass the scope beyond the transverse colon so the procedure was terminated. Retroflexed views revealed no abnormalities The scope was then completely withdrawn from the patient and the procedure terminated. ADVERSE EVENTS: There were no complications. IMPRESSIONS: 1. Poor prep unable to pass the scope beyond the transverse colon so the procedure was terminated 2. Retroflexed views revealed no abnormalities 3. Revealed no abnormalities of the rectum RECOMMENDATIONS: Repeat prep and colonoscopy tomorrow RECALL: Return 1 day Colonoscopy Slime Covarrubias MD eSigned: Slime Covarrubias MD 04/18/2018 10:34 AM cc:
--- NOTE | 2018-04-18 10:42 | P.PNGI ---
Subjective Interval history: Patient is doing okay, no significant changes, CT scan show possible mass in the lung consistent with possible cancer Physical Exam Vital signs: Vital Signs 04/17/18 12:00 04/17/18 21:07 04/17/18 21:14 Temperature 98 F 98.0 F Pulse Rate 68 83 76 Respiratory Rate 16 16 18 Blood Pressure 140/69 160/87 H Pulse Oximetry 94 L 97 04/18/18 00:10 04/18/18 01:30 04/18/18 04:24 Temperature 97.7 F 97.7 F Pulse Rate 84 76 Respiratory Rate 18 15 18 Blood Pressure 130/62 144/68 H Pulse Oximetry 95 93 L 04/18/18 08:00 04/18/18 08:04 Temperature 97.8 F Pulse Rate 74 85 Respiratory Rate 17 12 Blood Pressure 148/73 H Pulse Oximetry 93 L 93 L Intake & Output 04/17/18 04/18/18 04/18/18 18:59 06:59 18:59 Intake Total 360 / 360 250 / 250 Output Total 200 / 200 300 / 300 Balance -200 / -200 60 / 60 250 / 250 Weight 56.7 kg Intake: Oral 360 / 360 Anesthesia Amount 250 / 250 Output: Urine 200 / 200 300 / 300 Other: # Voids 3 Date of Last Bowel Movement 04/16/18 04/16/18 # Bowel Movements 3 - Constitutional no acute distress - Routine HEENT Exam Head: Present: normocephalic, atraumatic Eye: Present: EOMI, PERRL ENT: Present: mucous membranes moist, mucous membranes dry - Routine Neck Exam Present: supple, full ROM - Routine Respiratory Exam Comments: Normal breathing sounds - Routine Cardiovascular Exam Present: RRR, S1, S2 - Routine Abdominal Exam Present: soft, normoactive bowel sounds - Routine Extremities Exam Present: full ROM Results - Labs CBC & Chem 7: 04/16/18 07:24 04/16/18 07:24 Laboratory Results - last 24 hr 04/17/18 15:37 PT 11.4 INR 1.1 Assessment and Plan - Plan Patient was seen and examined, had chest pain and abdominal pain CT scan of the abdomen showed diverticulosis, CT of the chest showed possible lung cancer patient would need biopsy Patient also has anemia and weight loss so an upper endoscopy and colonoscopy was done The upper endoscopy was unremarkable except irregular Z line questionable Farr biopsy was done Colonoscopy was poor prep Follow-up H&H Lung biopsy Repeat colonoscopy with longer prep tomorrow clear liquid today
[2018-04-18] MEDS: Senna/Docusate Sodium 8.6/50 MG Tablet PO SCH ×2 (11:52→21:13)
[2018-04-18] MEDS: Morphine Inj 4 MG/ML Vial IV.PUSH PRN ×2 (12:13→21:12)
[2018-04-18] MEDS ORDERED: Lidocaine 1%/Epinephrine 1:100,000 Inj 20 ML Vial ONE (12:53)
--- NOTE | 2018-04-18 13:01 | P.PN ---
Subjective Interval history: Follow-up visit for lung mass versus pneumonia and abdominal pain. Patient is seen and examined today resting in bed right before going to CT-guided biopsy. He complains of ongoing abdominal pain, denies any more nausea or vomiting. Patient also reports that he feels as if his abdomen is dunn and has not moved his bowels in 4 days. Intermittent coughing with no shortness of breath. He denies any fevers, chills, headache, dizziness or chest pain. Physical Exam Vital signs: Vital Signs 04/17/18 21:07 04/17/18 21:14 04/18/18 00:10 Temperature 36.7 C 36.5 C Pulse Rate 83 76 84 Respiratory Rate 16 18 18 Blood Pressure 160/87 H 130/62 Pulse Oximetry 97 95 04/18/18 01:30 04/18/18 04:24 04/18/18 08:00 Temperature 36.5 C 36.6 C Pulse Rate 76 74 Respiratory Rate 15 18 17 Blood Pressure 144/68 H 148/73 H Pulse Oximetry 93 L 93 L 04/18/18 08:04 04/18/18 10:40 04/18/18 12:00 Temperature 36.8 C 36.3 C L Pulse Rate 85 81 88 Respiratory Rate 12 20 18 Blood Pressure 108/61 167/81 H Pulse Oximetry 93 L 92 L 94 L Intake & Output 04/17/18 04/18/18 04/18/18 18:59 06:59 18:59 Intake Total 360 / 360 250 / 250 Output Total 200 / 200 300 / 300 Balance -200 / -200 60 / 60 250 / 250 Weight 56.7 kg Intake: Oral 360 / 360 Anesthesia Amount 250 / 250 Output: Urine 200 / 200 300 / 300 Other: # Voids 3 Date of Last Bowel Movement 04/16/18 04/16/18 04/16/18 # Bowel Movements 3 Narrative: GENERAL: This is a well-nourished, well-developed patient, in no apparent distress. SKIN: Warm and dry. HEENT: Normocephalic. Pupils equal round. Nose without bleeding. Airway patent. NECK: Trachea midline. CARDIOVASCULAR: Regular rate and rhythm without murmurs, gallops, or rubs. RESPIRATORY: Clear to auscultation. Breath sounds equal bilaterally. No wheezes , rales, or rhonchi. GASTROINTESTINAL: Abdomen soft, round,+ bowel sounds, + generalized tenderness. MUSCULOSKELETAL: Extremities without clubbing, cyanosis, or edema. NEUROLOGICAL: Awake and alert. Oriented to time, place, person. No focal neuro deficit. Moves all extremities. Normal speech. Results - Labs CBC & Chem 7: 04/16/18 07:24 04/16/18 07:24 Laboratory Results - last 24 hr 04/17/18 15:37 PT 11.4 INR 1.1 Assessment and Plan - Assessment (1) Intractable pain Code(s): R52 - Pain, unspecified Status: Acute (2) Leukocytosis Code(s): D72.829 - Elevated white blood cell count, unspecified Status: Acute (3) Lung mass Code(s): R91.8 - Other nonspecific abnormal finding of lung field Status: Acute (4) Prostate CA Code(s): C61 - Malignant neoplasm of prostate Status: Acute - Plan 77-year-old male with a PMH of Prostate CA who presented to ER with complaints of back and abdominal pain x2 days Abdominal pain, diverticulosis Intractable Pain: c/o back/abdominal pain, no acute injury -CT Abd/Pelvis w/ no acute findings, mild diverticulosis without inflammatory change. -continue w/ analgesics/antiemetics as needed, PRN rectal Phenergan. -Abdominal US with no acute findings -Liver enzymes and Lipase WNL -GI consult, greatly appreciate assistance. -Upper endoscopy unremarkable with the exception of irregular Z line questionable for Farr's esophagitis, biopsy obtained. -Poor bowel prep, reschedule colonoscopy -KUB done today showing nonspecific bowel gas pattern most consistent with ileus. Discussed with , hold off on bowel prep and colonoscopy for tomorrow. Initially NPO, spoke with RN and patient requesting something to eat. - Trial of clear liquids, continue IV fluids, schedule IV Reglan. -Pain control with IV morphine Lung Mass Vs Acute PNA, CAP Leukocytosis: WBC 17, Afebrile. -CXR w/ possible lung mass similar to previous imaging, ?recurrent infiltrate vs mass. CT Chest 03/12/17 reviewed-showing RUL wedge-shaped consolidation 3.3 x 3.4 cm, will obtain CT Chest w/ IV Contrast tomorrow as pt already received contrast load w/ CT Abd/Pelvis. -CT Chest showed Worrisome mass in the posterior right upper lobe most characteristic of primary bronchogenic carcinoma. The mass is amenable to CT- guided core biopsy. 2. Right hilar adenopathy and prominent aortopulmonary window node. 3. Further evaluation with PET/CT would be helpful for staging -on empiric Levaquin IV for possible PNA -Consult Pulmonology, s/p CT-guided biopsy today, tolerated well. Prostate CA, Hx -s/p chemo/radiation, per patient and family he completed treatment approx 2- 3 months ago. -Outpatient follow up as scheduled. DVT Prophylaxis: SCD/Teds Discussed Condition With: Patient, family, nurse, . Discharge Planning: Possible ileus, ideally would D/C home.
[2018-04-18] MEDS ORDERED: fentaNYL Citrate Inj 100 MCG/2 ML Ampul ONE (13:40)
--- NOTE | 2018-04-18 14:34 | CT ---
EXAM DATE: 04/18/2018 2:26 PM EDT AGE/SEX: 77 years / Male INDICATIONS: Right lung biopsy. CLINICAL DATA: This is the patient's initial encounter. Patient reports that signs and symptoms have been present for 1 day and indicates a pain score of 0/10. MEDICAL/SURGICAL HISTORY: Carcinoma, prostatic. mass right lung None. COMPARISON: [facility] – [place], CT CHEST W CONTRAST, 04/16/2018. . BIOPSY SITE: Right lung MEDICATION(S): 2MG midazolam (Versed) IV 100MCG fentanyl (Sublimaze) IV DEVICE(S): 20 gauge Temno core biopsy needle Two core specimen(s) sent to the laboratory for pathologic evaluation and laboratory/culture. . . PROCEDURE: CT guided Right lung biopsy Prior to the procedure informed consent was obtained. Any appropriate prior imaging studies were rev iewed. Using automated exposure control and adjustment of the mA and/or kV according to patient size , radiation dose was kept as low as reasonably achievable to obtain optimal diagnostic quality images . DICOM format image data is available electronically for review and comparison. The site was prepped in a sterile fashion. Full sterile technique was used, including cap, mask, georges rile gloves and gown and a large sterile sheet. Hand hygiene and 2% chlorhexidine and/or betadine/al cohol prep was utilized per protocol for cutaneous antisepsis. The skin and subcutaneous tissues wer e infiltrated with local anesthetic solution. With CT guidance the previously identified target was localized. Biopsy was performed using the presc ribed needle as above. Adequate hemostasis was obtained with compression at the puncture site. Follow-up CT scan reveals a tiny pneumothorax. Conscious sedation was performed with the prescribed dosages and duration as above in the presence of an independent trained radiology nurse to assist in the monitoring of the patient. EKG and oximetry remained stable throughout the procedure. The patient tolerated the procedure well and there were no complications. The patient was sent to Radiology Outpatient Unit in stable condition. FINDINGS: After obtaining consent, a right lung biopsy was performed with CT guidance. Specimens for pathology and culture and sensitivity were obtained. A tiny right-sided pneumothorax occurred. CONCLUSION: Successful CT-guided right lung biopsy for pathology and culture as described above. Electronically signed by: Aramis Nelson MD 04/18/2018 2:33 PM EDT
--- NOTE | 2018-04-18 14:48 | XR ---
EXAM DATE: 04/18/2018 2:35 PM EDT AGE/SEX: 77 years / Male INDICATIONS: Post lung biopsy. CLINICAL DATA: This is the patient's initial encounter. Patient reports that signs and symptoms have been present for 1 day and indicates a pain score of 3/10. MEDICAL/SURGICAL HISTORY: . Prostate cancer. None. . COMPARISON: Chest x-ray 04/15/2018r. FINDINGS: A single frontal expiratory view of the chest was performed. No pneumothorax following right lung bio psy. Right upper lobe mass measuring approximately 4 cm again noted. Left lung is clear. No effusions . Heart is normal in size. Bony structures are unremarkable. CONCLUSION: No pneumothorax following biopsy. Electronically signed by: Joe Hess MD 04/18/2018 2:47 PM EDT
[2018-04-18] MEDS ORDERED: PEG 3350/E-Lyte Soln 4000 ML Bottle PO ONE (15:00)
--- NOTE | 2018-04-18 15:10 | XR ---
EXAM DATE: 04/18/2018 2:37 PM EDT AGE/SEX: 77 years / Male INDICATIONS: Evaluate for ileus. CLINICAL DATA: This is the patient's subsequent encounter. Patient reports that signs and symptoms h ave been present for 2 days and indicates a pain score of 3/10. MEDICAL/SURGICAL HISTORY: . Prostate cancer. None. . COMPARISON: [facility] – [place], CT ABDOMEN & PELVIS W/O CONTRAST, 04/15/2018. . FINDINGS: A single AP supine view of the abdomen and pelvis was obtained and demonstrates mild gaseous distent ion in the colon. There are several loops of nondilated air-containing small bowel present. There are radiation seed implants projected over the region of the prostate gland. The bony structures are int act. There is no evidence of free air or mass effect. CONCLUSION: Nonspecific bowel gas pattern most consistent with ileus. Electronically signed by: Peyman Rose MD 04/18/2018 3:08 PM EDT
[2018-04-18] MEDS ORDERED: Morphine Sulfate Inj 2 MG/ML Vial IV.PUSH PRN (16:06)
[2018-04-18] MEDS ORDERED: Phenylephrine/NS 1000 MCG/10ML Syringe IV.PUSH ONE (18:10)
[2018-04-18] MEDS ORDERED: Lidocaine PF 1% Inj 5 ML Syringe INFILTRATN ONE (18:10)
[2018-04-18] MEDS: amLODIPine 5 MG Tablet PO SCH (19:23)
--- NOTE | 2018-04-18 20:07 | P.PN ---
Subjective Interval history: Had CT needle biopsy of lung mass. Had colonoscopy. wants to eat. C/O some abdominal pain in LUQ. Physical Exam Vital signs: Vital Signs 04/17/18 21:07 04/17/18 21:14 04/18/18 00:10 Temperature 98.0 F 97.7 F Pulse Rate 83 76 84 Respiratory Rate 16 18 18 Blood Pressure 160/87 H 130/62 Pulse Oximetry 97 95 04/18/18 01:30 04/18/18 04:24 04/18/18 08:00 Temperature 97.7 F 97.8 F Pulse Rate 76 74 Respiratory Rate 15 18 17 Blood Pressure 144/68 H 148/73 H Pulse Oximetry 93 L 93 L 04/18/18 08:04 04/18/18 10:40 04/18/18 12:00 Temperature 98.3 F 97.4 F L Pulse Rate 85 81 88 Respiratory Rate 12 20 18 Blood Pressure 108/61 167/81 H Pulse Oximetry 93 L 92 L 94 L 04/18/18 14:30 04/18/18 14:45 04/18/18 15:00 Temperature 98.6 F Pulse Rate 84 82 Respiratory Rate 20 18 Blood Pressure 162/79 H 146/80 H 149/78 H Pulse Oximetry 93 L 92 L 94 L 04/18/18 16:00 04/18/18 19:10 Temperature 98.5 F Pulse Rate 101 H Respiratory Rate 18 18 Blood Pressure 171/81 H Pulse Oximetry 97 99 Intake & Output 04/18/18 04/18/18 04/19/18 06:59 18:59 06:59 Intake Total 360 / 360 250 / 250 Output Total 300 / 300 250 / 250 Balance 60 / 60 0 / 0 Weight 56.7 kg Intake: Oral 360 / 360 Anesthesia Amount 250 / 250 Output: Urine 300 / 300 250 / 250 Other: # Voids 3 Date of Last Bowel Movement 04/16/18 04/16/18 # Bowel Movements 3 Narrative: GENERAL: This is a well-nourished, well-developed patient, in no apparent distress. SKIN: Warm and dry. HEENT: Normocephalic. Pupils equal round. Nose without bleeding. Airway patent. NECK: Trachea midline. CARDIOVASCULAR: Regular rate and rhythm without murmurs, gallops, or rubs. RESPIRATORY: Clear to auscultation. Breath sounds equal bilaterally. No wheezes , rales, or rhonchi. GASTROINTESTINAL: Abdomen soft, round,+ bowel sounds, has LUQ tenderness. MUSCULOSKELETAL: Extremities without clubbing, cyanosis, or edema. NEUROLOGICAL: Awake and alert. Oriented to time, place, person. No focal neuro deficit. Moves all extremities. Results - Labs CBC & Chem 7: 04/16/18 07:24 04/16/18 07:24 - Imaging Impressions Abdomen X-Ray 04/18/18 00:00 CONCLUSION: Nonspecific bowel gas pattern most consistent with ileus. Lung Biopsy CT 04/18/18 00:00 CONCLUSION: Successful CT-guided right lung biopsy for pathology and culture as described above. Chest X-Ray 04/18/18 14:13 CONCLUSION: No pneumothorax following biopsy. Assessment and Plan - Assessment (1) COPD (chronic obstructive pulmonary disease) Code(s): J44.9 - Chronic obstructive pulmonary disease, unspecified Status: Acute (2) Pneumonia Code(s): J18.9 - Pneumonia, unspecified organism Status: Acute (3) Intractable pain Code(s): R52 - Pain, unspecified Status: Acute (4) Leukocytosis Code(s): D72.829 - Elevated white blood cell count, unspecified Status: Acute (5) Lung mass Code(s): R91.8 - Other nonspecific abnormal finding of lung field Status: Acute (6) Prostate CA Code(s): C61 - Malignant neoplasm of prostate Status: Acute - Plan 1. Will continue Duoneb nebs qid . 2. O2 2 L N/C PRN 3. Chest Xray in am 4. CBC,BMP , KUB. 5. Pain Control with [place] 5/325 mg q6h prn 6. Continue levaquin 750 Mg IV daily
[2018-04-19] MEDS: amLODIPine 5 MG Tablet PO SCH (08:47)
[2018-04-19] MEDS: Senna/Docusate Sodium 8.6/50 MG Tablet PO SCH ×2 (08:47→20:26)
[2018-04-19] MEDS: Morphine Inj 4 MG/ML Vial IV.PUSH PRN (08:48)
[2018-04-19 08:56] LABS: Baso % (Auto) 0.4 % (0.0-2.0); Eos # (Auto) 0.1 th/mm3 (0.0-0.4); Eos % (Auto) 1.8 % (0.0-4.0); Hematocrit 33.4 % (39.0-51.0); Hemoglobin 11.1 gm/dL (13.0-17.0); Lymph # (Auto) 0.7 th/mm3 (1.0-4.8); Lymph % (Auto) 9.5 % (9.0-44.0); Mean Corpuscular HGB Conc 33.2 % (32.0-36.0); Mean Corpuscular Hemoglobin 26.3 pg (27.0-34.0); Mean Corpuscular Volume 79.3 fL (80.0-100.0); Mean Platelet Volume 7.6 fL (7.0-11.0); Mono # (Auto) 0.8 th/mm3 (0.0-0.9); Mono % (Auto) 10.3 % (0.0-8.0); Neut # (Auto) 5.9 th/mm3 (1.8-7.7); Platelet Count 361 th/mm3 (150-450); Red Blood Count 4.21 mil/mm3 (4.50-5.90); Red Cell Distribution Width 14.2 % (11.6-17.2); White Blood Count 7.6 th/mm3 (4.0-11.0)
--- NOTE | 2018-04-19 08:58 | P.PN ---
Subjective Interval history: Follow-up visit for lung mass versus pneumonia and abdominal pain. Patient is status post lung biopsy yesterday. He seen and examined resting in bed and appears to be in no acute distress. He reports that he was able to tolerate liquid dinner yesterday. He denies any nausea, vomiting, fevers, chills, cough , shortness of breath, headache, dizziness or chest pain. He continues to complain of left-sided abdominal pain and discomfort, positive flatus, no BM yet. Physical Exam Vital signs: Vital Signs 04/18/18 10:40 04/18/18 12:00 04/18/18 14:30 Temperature 36.8 C 36.3 C L 37.0 C Pulse Rate 81 88 Respiratory Rate 20 18 Blood Pressure 108/61 167/81 H 162/79 H Pulse Oximetry 92 L 94 L 93 L 04/18/18 14:45 04/18/18 15:00 04/18/18 16:00 Temperature 36.9 C Pulse Rate 84 82 Respiratory Rate 20 18 18 Blood Pressure 146/80 H 149/78 H 171/81 H Pulse Oximetry 92 L 94 L 97 04/18/18 19:10 04/18/18 20:15 04/18/18 22:25 Temperature 36.6 C Pulse Rate 101 H 95 H Respiratory Rate 18 18 17 Blood Pressure 148/69 H Pulse Oximetry 99 92 L 04/18/18 23:20 04/19/18 01:14 04/19/18 04:39 Temperature 37.1 C 36.8 C Pulse Rate 76 85 Respiratory Rate 18 17 18 Blood Pressure 109/59 L 110/57 L Pulse Oximetry 94 L 96 04/19/18 06:29 Temperature Pulse Rate Respiratory Rate 17 Blood Pressure Pulse Oximetry Intake & Output 04/18/18 04/19/18 04/19/18 18:59 06:59 18:59 Intake Total 400 / 400 480 / 480 Output Total 250 / 250 Balance 150 / 150 480 / 480 Intake: IV 150 / 150 Levaquin 750 mg Premix Inj 150 150 / 150 ML @ 100 mls/hr IV.SIG Q24H [facility] Rx#:[id number] Oral 480 / 480 Anesthesia Amount 250 / 250 Output: Urine 250 / 250 Other: # Voids 2 Date of Last Bowel Movement 04/16/18 04/16/18 # Bowel Movements 0 Narrative: GENERAL: This is a well-nourished, well-developed patient, in no apparent distress. SKIN: Warm and dry. HEENT: Normocephalic. Pupils equal round. Nose without bleeding. Airway patent. NECK: Trachea midline. CARDIOVASCULAR: Regular rate and rhythm without murmurs, gallops, or rubs. RESPIRATORY: Clear to auscultation. Breath sounds equal bilaterally. No wheezes , rales, or rhonchi. GASTROINTESTINAL: Abdomen soft, round,+ bowel sounds, + generalized tenderness, greater on left quadrants. + Bowel sounds. MUSCULOSKELETAL: Extremities without clubbing, cyanosis, or edema. NEUROLOGICAL: Awake and alert. Oriented to time, place, person. No focal neuro deficit. Moves all extremities. Normal speech. Results - Labs CBC & Chem 7: 04/19/18 08:13 04/19/18 08:13 Laboratory Results - last 24 hr 04/19/18 08:13 WBC 7.6 RBC 4.21 L Hgb 11.1 L Hct 33.4 L MCV 79.3 L MCH 26.3 L MCHC 33.2 RDW 14.2 Plt Count 361 MPV 7.6 Neut % (Auto) 78.0 H Lymph % (Auto) 9.5 [place] % (Auto) 10.3 H Eos % (Auto) 1.8 Baso % (Auto) 0.4 Neut # (Auto) 5.9 Lymph # (Auto) 0.7 L [place] # (Auto) 0.8 Eos # (Auto) 0.1 Baso # (Auto) 0.0 WBC Differential . Differential Comment Auto diff final - Imaging Impressions Abdomen X-Ray 04/18/18 00:00 CONCLUSION: Nonspecific bowel gas pattern most consistent with ileus. Lung Biopsy CT 04/18/18 00:00 CONCLUSION: Successful CT-guided right lung biopsy for pathology and culture as described above. Chest X-Ray 04/18/18 14:13 CONCLUSION: No pneumothorax following biopsy. Assessment and Plan - Assessment (1) Intractable pain Code(s): R52 - Pain, unspecified Status: Acute (2) Leukocytosis Code(s): D72.829 - Elevated white blood cell count, unspecified Status: Acute (3) Lung mass Code(s): R91.8 - Other nonspecific abnormal finding of lung field Status: Acute (4) Prostate CA Code(s): C61 - Malignant neoplasm of prostate Status: Acute - Plan 77-year-old male with a PMH of Prostate CA who presented to ER with complaints of back and abdominal pain x2 days Abdominal pain, diverticulosis Intractable Pain: c/o back/abdominal pain, no acute injury -CT Abd/Pelvis w/ no acute findings, mild diverticulosis without inflammatory change. -continue w/ analgesics/antiemetics as needed, PRN rectal Phenergan. -Abdominal US with no acute findings -Liver enzymes and Lipase WNL -GI consult, greatly appreciate assistance. -Upper endoscopy unremarkable with the exception of irregular Z line questionable for Farr's esophagitis, biopsy obtained. -Poor bowel prep, reschedule colonoscopy, hold off on colonoscopy due to possible ileus -KUB done today showing nonspecific bowel gas pattern most consistent with ileus. - Tolerating clear liquids, continue IV fluids, continue IV Reglan, try Lactulose today. -Pain control with IV morphine and [place]. -Check CT angiogram of abdomen for possible mesenteric ischemia. Lung Mass Vs Acute PNA, CAP Leukocytosis: WBC 17, Afebrile. -CXR w/ possible lung mass similar to previous imaging, ?recurrent infiltrate vs mass. CT Chest 03/12/17 reviewed-showing RUL wedge-shaped consolidation 3.3 x 3.4 cm, will obtain CT Chest w/ IV Contrast tomorrow as pt already received contrast load w/ CT Abd/Pelvis. -CT Chest showed Worrisome mass in the posterior right upper lobe most characteristic of primary bronchogenic carcinoma. The mass is amenable to CT- guided core biopsy. 2. Right hilar adenopathy and prominent aortopulmonary window node. 3. Further evaluation with PET/CT would be helpful for staging -on empiric Levaquin IV for possible PNA -Pulmonary following, status post biopsy yesterday. Discussed with Dr. Kendrick mathew, continue IV Levaquin for now. Prostate CA, Hx -s/p chemo/radiation, per patient and family he completed treatment approx 2- 3 months ago. -Outpatient follow up as scheduled. DVT Prophylaxis: SCD/Teds Discussed Condition With: Discussed with patient and nurse. Discharge Planning: Possible ileus, ideally would D/C home.
[2018-04-19 09:27] LABS: Albumin 2.3 g/dL (3.4-5.0); Anion Gap 10 meq/L (5-15); Aspartate Aminotransferase 15 U/L (15-37); Blood Urea Nitrogen 13 mg/dL (7-18); Calcium 9.1 mg/dL (8.5-10.1); Carbon Dioxide 25.8 meq/L (21.0-32.0); Chloride 101 meq/L (98-107); Glomerular Filtration Rate 81 mL/min (>89); Glucose,Random 93 mg/dL (74-106); Potassium 3.6 meq/L (3.5-5.1); Sodium 137 meq/L (136-145)
[2018-04-19 09:28] LABS: Alanine Aminotransferase 14 U/L (12-78)
[2018-04-19 09:29] LABS: Alkaline Phosphatase 113 U/L (45-117); Total Protein 7.7 g/dL (6.4-8.2)
--- NOTE | 2018-04-19 13:02 | P.PNGI ---
Subjective Interval history: Pt resting in bed, continued generalized abdominal pain. No BM today. Was unable to tolerate prep yesterday so colonoscopy today was cancelled. KUB noted to be consistent with ileus. <GuerlinekervinKierra - Last Filed: 04/19/18 13:02> Physical Exam Vital signs: Vital Signs 04/18/18 14:30 04/18/18 14:45 04/18/18 15:00 Temperature 98.6 F Pulse Rate 84 82 Respiratory Rate 20 18 Blood Pressure 162/79 H 146/80 H 149/78 H Pulse Oximetry 93 L 92 L 94 L 04/18/18 16:00 04/18/18 19:10 04/18/18 20:15 Temperature 98.5 F 97.8 F Pulse Rate 101 H 95 H Respiratory Rate 18 18 18 Blood Pressure 171/81 H 148/69 H Pulse Oximetry 97 99 92 L 04/18/18 22:25 04/18/18 23:20 04/19/18 01:14 Temperature 98.8 F Pulse Rate 76 Respiratory Rate 17 18 17 Blood Pressure 109/59 L Pulse Oximetry 94 L 04/19/18 04:39 04/19/18 06:29 04/19/18 08:00 Temperature 98.3 F 98.2 F Pulse Rate 85 89 Respiratory Rate 18 17 18 Blood Pressure 110/57 L 129/60 Pulse Oximetry 96 95 04/19/18 09:30 04/19/18 11:40 Temperature Pulse Rate 77 Respiratory Rate 18 Blood Pressure Pulse Oximetry 92 L 96 Intake & Output 04/18/18 04/19/18 04/19/18 18:59 06:59 18:59 Intake Total 400 / 400 480 / 480 Output Total 250 / 250 Balance 150 / 150 480 / 480 Intake: IV 150 / 150 Levaquin 750 mg Premix Inj 150 150 / 150 ML @ 100 mls/hr IV.SIG Q24H [facility] Rx#:[id number] Oral 480 / 480 Anesthesia Amount 250 / 250 Output: Urine 250 / 250 Other: # Voids 2 Date of Last Bowel Movement 04/16/18 04/16/18 # Bowel Movements 0 - Constitutional no acute distress - Routine HEENT Exam Head: Present: normocephalic, atraumatic - Routine Respiratory Exam Absent: accessory muscle use - Routine Abdominal Exam Present: soft, normoactive bowel sounds, distended. Absent: tenderness - Routine Skin Exam Present: dry, warm - Routine Neurological Exam Present: alert, oriented X3 <Kierra Gagnon - Last Filed: 04/19/18 13:02> Vital signs: Vital Signs 04/18/18 19:10 04/18/18 20:15 04/18/18 22:25 Temperature 97.8 F Pulse Rate 101 H 95 H Respiratory Rate 18 18 17 Blood Pressure 148/69 H Pulse Oximetry 99 92 L 04/18/18 23:20 04/19/18 01:14 04/19/18 04:39 Temperature 98.8 F 98.3 F Pulse Rate 76 85 Respiratory Rate 18 17 18 Blood Pressure 109/59 L 110/57 L Pulse Oximetry 94 L 96 04/19/18 06:29 04/19/18 08:00 04/19/18 09:30 Temperature 98.2 F Pulse Rate 89 77 Respiratory Rate 17 18 18 Blood Pressure 129/60 Pulse Oximetry 95 92 L 04/19/18 11:40 04/19/18 12:00 04/19/18 14:01 Temperature 98.0 F Pulse Rate 79 76 Respiratory Rate 18 20 Blood Pressure 125/62 Pulse Oximetry 96 93 L Intake & Output 04/18/18 04/19/18 04/19/18 18:59 06:59 18:59 Intake Total 400 / 400 480 / 480 Output Total 250 / 250 Balance 150 / 150 480 / 480 Intake: IV 150 / 150 Levaquin 750 mg Premix Inj 150 150 / 150 ML @ 100 mls/hr IV.SIG Q24H [facility] Rx#:[id number] Oral 480 / 480 Anesthesia Amount 250 / 250 Output: Urine 250 / 250 Other: # Voids 2 Date of Last Bowel Movement 04/16/18 04/16/18 # Bowel Movements 0 <Slime Covarrubias - Last Filed: 04/19/18 18:13> Results - Labs CBC & Chem 7: 04/19/18 08:13 04/19/18 08:13 Laboratory Results - last 24 hr 04/19/18 04/19/18 08:13 08:13 WBC 7.6 RBC 4.21 L Hgb 11.1 L Hct 33.4 L MCV 79.3 L MCH 26.3 L MCHC 33.2 RDW 14.2 Plt Count 361 MPV 7.6 Neut % (Auto) 78.0 H Lymph % (Auto) 9.5 [place] % (Auto) 10.3 H Eos % (Auto) 1.8 Baso % (Auto) 0.4 Neut # (Auto) 5.9 Lymph # (Auto) 0.7 L [place] # (Auto) 0.8 Eos # (Auto) 0.1 Baso # (Auto) 0.0 WBC Differential . Differential Comment Auto diff final Sodium 137 Potassium 3.6 Chloride 101 Carbon Dioxide 25.8 Anion Gap 10 BUN 13 Creatinine 0.91 Estimated GFR 81 L Random Glucose 93 Calcium 9.1 Total Bilirubin 0.4 AST 15 ALT 14 Alkaline Phosphatase 113 Total Protein 7.7 Albumin 2.3 L Microbiology 04/18/18 14:05 Tissue - Lung Gram Stain - Final - Imaging Impressions Abdomen X-Ray 04/18/18 00:00 CONCLUSION: Nonspecific bowel gas pattern most consistent with ileus. Lung Biopsy CT 04/18/18 00:00 CONCLUSION: Successful CT-guided right lung biopsy for pathology and culture as described above. Chest X-Ray 04/18/18 14:13 CONCLUSION: No pneumothorax following biopsy. <Kierra Gagnon - Last Filed: 04/19/18 13:02> - Labs CBC & Chem 7: 04/19/18 08:13 04/19/18 08:13 Laboratory Results - last 24 hr 04/19/18 04/19/18 08:13 08:13 WBC 7.6 RBC 4.21 L Hgb 11.1 L Hct 33.4 L MCV 79.3 L MCH 26.3 L MCHC 33.2 RDW 14.2 Plt Count 361 MPV 7.6 Neut % (Auto) 78.0 H Lymph % (Auto) 9.5 [place] % (Auto) 10.3 H Eos % (Auto) 1.8 Baso % (Auto) 0.4 Neut # (Auto) 5.9 Lymph # (Auto) 0.7 L [place] # (Auto) 0.8 Eos # (Auto) 0.1 Baso # (Auto) 0.0 WBC Differential . Differential Comment Auto diff final Sodium 137 Potassium 3.6 Chloride 101 Carbon Dioxide 25.8 Anion Gap 10 BUN 13 Creatinine 0.91 Estimated GFR 81 L Random Glucose 93 Calcium 9.1 Total Bilirubin 0.4 AST 15 ALT 14 Alkaline Phosphatase 113 Total Protein 7.7 Albumin 2.3 L Microbiology 04/18/18 14:05 Tissue - Lung Gram Stain - Final 04/18/18 14:05 Tissue - Lung Wound Culture - Preliminary No growth in 24 hours - Imaging Impressions Abdomen/Pelvis CTA 04/19/18 00:00 CONCLUSION: <Slime Covarrubias - Last Filed: 04/19/18 18:13> Assessment and Plan - Plan Assessment: - Abdominal pain- When asked to localize pain, pt points to his left flank and states it wraps around to his back. States pain is constant, rates it a 6/10. However, exam reveals pt is tender to palpation over entire abdomen. States one episode of emesis yesterday after eating, denies any other nausea or vomiting. Denies heartburn. Reports weight loss of 15 lbs over 9 months, was on chemotherapy and radiation during this time for prostate cancer. Also has noticed a decreased appetite. Has had no BM in 3 days, states prior to this BMs were normal, denies blood in stool. Has never had EGD or colonoscopy. Of note, has been taking Ibuprofen almost every night for neck, back, and arm pain. Denies significant GI family history CT abdomen and pelvis WO IV contrast --> Mild diverticulosis with no inflammatory change. No visualized etiology to explain the patient's pain US abdomen --> No acute findings. Probable small gallbladder polyp. No hydronephrosis. Echogenic, small right kidney. - History of prostate cancer S/P chemotherapy and radiation - Mass lesion in right upper lobe- pulmonology following (04/19) S/P EGD and colonoscopy yesterday EGD --> Irregular Z line from the GE junction, otherwise normal Colonoscopy --> Unable to pass scope beyond the transverse colon due to poor prep. Initial plan was for repeat prep and repeat colonoscopy today. Pt was unable to tolerate prep and procedure was cancelled. Pt continues to have diffuse abdominal pain. Can not remember his last BM although 3 documented from yesterday. KUB consistent with ileus, Reglan ordered by hospitalist. Plan: Soap suds enema x 2 Agree with Reglan Relistor x 1 CTA abdomen Repeat colonoscopy- timing TBD Further recommendations to follow Pt has been seen and examined by myself and Dr. Covarrubias and this note is written on his behalf <Kierra Gagnon - Last Filed: 07/25/18 13:02> - Plan Patient was seen and examined, agree with above note,lung biopsy, his at some point he will need colonoscopy, his symptom could be related to significant constipation but malignancy need to be ruled out <Slime Covarrubias - Last Filed: 04/19/18 18:13>
[2018-04-19] MEDS ORDERED: Methylnaltrexone Inj 12 MG/0.6 ML Vial SQ ONE (13:55)
--- NOTE | 2018-04-19 15:42 | CT ---
EXAM DATE: 04/19/2018 3:25 PM EDT AGE/SEX: 77 years / Male INDICATIONS: Abdominal pain CLINICAL DATA: This is the patient's initial encounter. Patient reports that signs and symptoms have been present for 1 day and indicates a pain score of 5/10. MEDICAL/SURGICAL HISTORY: Carcinoma, prostatic. None. RADIATION DOSE: 15.13 CTDI (mGy) COMPARISON: No prior exams available for comparison. TECHNIQUE: Volumetric scanning was performed using a multi-row detector CT scanner during bolus infu ramon of 150 ml Omnipaque 350 (iohexol) nonionic water-soluble contrast as a single exam dose. . The data was post processed with a variety of visualization algorithms including full volume maximum int ensity projection, multi-planar sliding thin slab reformation, curved planar reformation, and surface rendering techniques. Using automated exposure control and adjustment of the mA and/or kV according to patient size, radiation dose was kept as low as reasonably achievable to obtain optimal diagnosti c quality images. DICOM format image data is available electronically for review and comparison. FINDINGS: There is subsegmental atelectasis in the both bases. There is a lymph node in the right hilum in this patient was recently undergone biopsy of a lung mass . This may reflect metastatic disease. The liver and spleen are normal in size and no focal defects a re identified. The gallbladder and pancreas are unremarkable. No intrahepatic or extrahepatic ducta l dilatation is seen. The adrenal glands are unremarkable. The right kidney is unremarkable. There i s a single simple cyst in the left kidney measuring 15 mm. Examination of the pelvis demonstrates no evidence of free fluid or pelvic mass. No abnormally enlarg ed inguinal or retroperitoneal lymph nodes are present. The bladder is unremarkable. There is diverti culosis without evidence of diverticulitis. There are markers within the prostate gland compatible wi th previous radiation therapy for prostate carcinoma. The aorta is normal in caliber. There is no evidence of aneurysm or dissection. The renal artery orig ins are patent bilaterally. The celiac axis and superior mesenteric artery origins are also patent. No evidence of acute abdominal or pelvic process. No masses are identified. No evidence of mesenteric ischemia Possible metastatic adenopathy right hilum Electronically signed by: Kevin Shook MD 04/19/2018 3:40 PM EDT
[2018-04-19] MEDS ORDERED: Sod Phosphate/Sod Biphosphate (Adult) Enema 133 ML Bottle RECTAL ONE (16:06)
--- NOTE | 2018-04-19 19:35 | P.PN ---
Subjective Interval history: He has abdominal pains. Constipated, Lung biopsy result pending. Off o2 Physical Exam Vital signs: Vital Signs 04/18/18 20:15 04/18/18 22:25 04/18/18 23:20 Temperature 97.8 F 98.8 F Pulse Rate 95 H 76 Respiratory Rate 18 17 18 Blood Pressure 148/69 H 109/59 L Pulse Oximetry 92 L 94 L 04/19/18 01:14 04/19/18 04:39 04/19/18 06:29 Temperature 98.3 F Pulse Rate 85 Respiratory Rate 17 18 17 Blood Pressure 110/57 L Pulse Oximetry 96 04/19/18 08:00 04/19/18 09:30 04/19/18 11:40 Temperature 98.2 F Pulse Rate 89 77 Respiratory Rate 18 18 Blood Pressure 129/60 Pulse Oximetry 95 92 L 96 04/19/18 12:00 04/19/18 14:01 Temperature 98.0 F Pulse Rate 79 76 Respiratory Rate 18 20 Blood Pressure 125/62 Pulse Oximetry 93 L Intake & Output 04/19/18 04/19/18 04/20/18 06:59 18:59 06:59 Intake Total 480 / 480 Balance 480 / 480 Intake: Oral 480 / 480 Other: # Voids 2 Date of Last Bowel Movement 04/16/18 # Bowel Movements 0 Narrative: GENERAL: This is a well-nourished, well-developed patient, in no apparent distress. SKIN: Warm and dry. HEENT: Normocephalic. Pupils equal round. Nose without bleeding. Airway patent. NECK: Trachea midline. CARDIOVASCULAR: Regular rate and rhythm without murmurs, gallops, or rubs. RESPIRATORY: Breath sounds equal bilaterally. occ wheezes upper chest GASTROINTESTINAL: Abdomen soft, round,+ bowel sounds, LUQ tenderness, + Bowel sounds.No mass. MUSCULOSKELETAL: Extremities without clubbing, cyanosis, or edema. NEUROLOGICAL: Awake and alert. Oriented to time, place, person. No focal neuro deficit. Moves all extremities. Normal speech. Results - Labs CBC & Chem 7: 04/19/18 08:13 04/19/18 08:13 Laboratory Results - last 24 hr 04/19/18 04/19/18 08:13 08:13 WBC 7.6 RBC 4.21 L Hgb 11.1 L Hct 33.4 L MCV 79.3 L MCH 26.3 L MCHC 33.2 RDW 14.2 Plt Count 361 MPV 7.6 Neut % (Auto) 78.0 H Lymph % (Auto) 9.5 [place] % (Auto) 10.3 H Eos % (Auto) 1.8 Baso % (Auto) 0.4 Neut # (Auto) 5.9 Lymph # (Auto) 0.7 L [place] # (Auto) 0.8 Eos # (Auto) 0.1 Baso # (Auto) 0.0 WBC Differential . Differential Comment Auto diff final Sodium 137 Potassium 3.6 Chloride 101 Carbon Dioxide 25.8 Anion Gap 10 BUN 13 Creatinine 0.91 Estimated GFR 81 L Random Glucose 93 Calcium 9.1 Total Bilirubin 0.4 AST 15 ALT 14 Alkaline Phosphatase 113 Total Protein 7.7 Albumin 2.3 L Microbiology 04/18/18 14:05 Tissue - Lung Gram Stain - Final 04/18/18 14:05 Tissue - Lung Wound Culture - Preliminary No growth in 24 hours - Imaging Impressions Abdomen/Pelvis CTA 04/19/18 00:00 CONCLUSION: Assessment and Plan - Assessment (1) COPD (chronic obstructive pulmonary disease) Code(s): J44.9 - Chronic obstructive pulmonary disease, unspecified Status: Acute (2) Pneumonia Code(s): J18.9 - Pneumonia, unspecified organism Status: Acute (3) Intractable pain Code(s): R52 - Pain, unspecified Status: Acute (4) Leukocytosis Code(s): D72.829 - Elevated white blood cell count, unspecified Status: Acute (5) Lung mass Code(s): R91.8 - Other nonspecific abnormal finding of lung field Status: Acute (6) Prostate CA Code(s): C61 - Malignant neoplasm of prostate Status: Acute - Plan 1. Will continue Duoneb nebs qid . 2. O2 2 L N/C PRN 3. Enema today and lactulose PO 4. CBC,BMP in am 5. Pain Control with [place] 5/325 mg q6h prn 6. Continue levaquin 750 Mg IV daily
--- NOTE | 2018-04-20 08:54 | P.PN ---
Subjective Interval history: Follow-up visit for lung mass versus pneumonia and abdominal pain. Spoke with nurse from overnight as well as nurse taking care of patient today. Patient received 2 soapsuds enemas and Fleet's enema yesterday with 2 bowel movements. Patient is seen and examined this morning resting in bed. He reports that his abdomen feels better, denies any nausea or vomiting, ongoing abdominal tenderness with palpation. Patient continues to complain of lower back pain, no lower extremity weakness, numbness, urinary fecal incontinence reported. He denies any shortness of breath, cough, fevers, chills, headache, dizziness, lightheadedness or chest pain. Reports he has been trying to ambulate as much as possible. Physical Exam Vital signs: Vital Signs 04/19/18 09:30 04/19/18 11:40 04/19/18 12:00 Temperature 36.7 C Pulse Rate 77 79 Respiratory Rate 18 18 Blood Pressure 125/62 Pulse Oximetry 92 L 96 93 L 04/19/18 14:01 04/19/18 16:00 04/19/18 20:00 Temperature 36.7 C 36.7 C Pulse Rate 76 78 77 Respiratory Rate 20 18 16 Blood Pressure 121/66 137/70 Pulse Oximetry 93 L 94 L 04/19/18 20:17 04/19/18 20:18 04/20/18 00:00 Temperature 36.6 C Pulse Rate 89 77 Respiratory Rate 12 16 Blood Pressure 127/64 Pulse Oximetry 91 L 94 L Intake & Output 04/19/18 04/20/18 04/20/18 18:59 06:59 18:59 Intake Total 750 / 750 Balance 750 / 750 Intake: IV 150 / 150 Levaquin 750 mg Premix Inj 150 150 / 150 ML @ 100 mls/hr IV.SIG Q24H [facility] Rx#:[id number] Oral 600 / 600 Other: # Voids 1 3 Date of Last Bowel Movement 04/16/18 # Bowel Movements 1 Narrative: GENERAL: This is a well-nourished, well-developed patient, in no apparent distress. SKIN: Warm and dry. HEENT: Normocephalic. Pupils equal round. Nose without bleeding. Airway patent. NECK: Trachea midline. CARDIOVASCULAR: Regular rate and rhythm without murmurs, gallops, or rubs. RESPIRATORY: Clear to auscultation. Breath sounds equal bilaterally. No wheezes , rales, or rhonchi. GASTROINTESTINAL: Abdomen soft, round,+ bowel sounds, positive generalized tenderness. + Bowel sounds. MUSCULOSKELETAL: Extremities without clubbing, cyanosis, or edema. Lumbar spine tenderness with palpation. NEUROLOGICAL: Awake and alert. Oriented to time, place, person. No focal neuro deficit. Moves all extremities. Normal speech. Results - Labs CBC & Chem 7: 04/19/18 08:13 04/19/18 08:13 Laboratory Results - last 24 hr 04/19/18 04/19/18 08:13 08:13 WBC 7.6 RBC 4.21 L Hgb 11.1 L Hct 33.4 L MCV 79.3 L MCH 26.3 L MCHC 33.2 RDW 14.2 Plt Count 361 MPV 7.6 Neut % (Auto) 78.0 H Lymph % (Auto) 9.5 [place] % (Auto) 10.3 H Eos % (Auto) 1.8 Baso % (Auto) 0.4 Neut # (Auto) 5.9 Lymph # (Auto) 0.7 L [place] # (Auto) 0.8 Eos # (Auto) 0.1 Baso # (Auto) 0.0 WBC Differential . Differential Comment Auto diff final Sodium 137 Potassium 3.6 Chloride 101 Carbon Dioxide 25.8 Anion Gap 10 BUN 13 Creatinine 0.91 Estimated GFR 81 L Random Glucose 93 Calcium 9.1 Total Bilirubin 0.4 AST 15 ALT 14 Alkaline Phosphatase 113 Total Protein 7.7 Albumin 2.3 L Microbiology 04/18/18 14:05 Tissue - Lung Gram Stain - Final 04/18/18 14:05 Tissue - Lung Wound Culture - Preliminary No growth in 24 hours - Imaging Impressions Abdomen/Pelvis CTA 04/19/18 00:00 CONCLUSION: Assessment and Plan - Assessment (1) Intractable pain Code(s): R52 - Pain, unspecified Status: Acute (2) Leukocytosis Code(s): D72.829 - Elevated white blood cell count, unspecified Status: Acute (3) Lung mass Code(s): R91.8 - Other nonspecific abnormal finding of lung field Status: Acute (4) Prostate CA Code(s): C61 - Malignant neoplasm of prostate Status: Acute - Plan 77-year-old male with a PMH of Prostate CA who presented to ER with complaints of back and abdominal pain x2 days Abdominal pain, diverticulosis Intractable Pain: c/o back/abdominal pain, no acute injury -CT Abd/Pelvis w/ no acute findings, mild diverticulosis without inflammatory change. -continue w/ analgesics/antiemetics as needed, PRN rectal Phenergan. -Abdominal US with no acute findings -Liver enzymes and Lipase WNL -GI consult, greatly appreciate assistance. -Upper endoscopy unremarkable with the exception of irregular Z line questionable for Farr's esophagitis, biopsy obtained. -Poor bowel prep, reschedule colonoscopy -KUB done today showing nonspecific bowel gas pattern most consistent with ileus. Tolerating regular diet, positive BMs. - 1x dose of Relistor, Continue IV Reglan. -Pain control with IV morphine and [place]. -Check CT angiogram of abdomen for possible mesenteric ischemia negative. Lumbar spine pain - Discussed with radiologist regarding CTA , reviewed and no concerning findings that would explain back pain. - Bone scan ordered. -Pain regimen adjusted. Lung Mass Vs Acute PNA, CAP Leukocytosis: WBC 17, Afebrile. -CXR w/ possible lung mass similar to previous imaging, ?recurrent infiltrate vs mass. CT Chest 03/12/17 reviewed-showing RUL wedge-shaped consolidation 3.3 x 3.4 cm. -CT Chest showed worrisome mass in the posterior right upper lobe most characteristic of primary bronchogenic carcinoma. The mass is amenable to CT- guided core biopsy. 2. Right hilar adenopathy and prominent aortopulmonary window node. 3. Further evaluation with PET/CT would be helpful for staging -on empiric Levaquin IV for possible PNA -Pulmonary following, status post biopsy discussed with Dr. Thomas, findings of adenocarcinoma on lung biopsy. - Consult Oncology for further evaluation, bone scan tomorrow, check CA 19-9 - Medical records from prostate CA treatment requested. Prostate CA, Hx -s/p chemo/radiation, per patient and family he completed treatment approx 7 months ago. -Outpatient follow up as scheduled. DVT Prophylaxis: SCD/Teds Discussed Condition With: Discussed with patient, , son, RN, . Discharge Planning: Lung biopsy positive for adenocarcinoma, oncology consulted, not yet ready for discharge.
[2018-04-20] MEDS: Senna/Docusate Sodium 8.6/50 MG Tablet PO SCH ×2 (10:06→20:41)
[2018-04-20] MEDS: Morphine Inj 4 MG/ML Vial IV.PUSH PRN (10:10)
[2018-04-20] MEDS: amLODIPine 5 MG Tablet PO SCH (10:17)
--- NOTE | 2018-04-20 11:28 | P.PN ---
Subjective Interval history: He has back pain still. Ileus is better. Lung biopsy is Positive for Adenocarcinoma Physical Exam Vital signs: Vital Signs 04/19/18 11:40 04/19/18 12:00 04/19/18 14:01 Temperature 98.0 F Pulse Rate 79 76 Respiratory Rate 18 20 Blood Pressure 125/62 Pulse Oximetry 96 93 L 04/19/18 16:00 04/19/18 20:00 04/19/18 20:17 Temperature 98.0 F 98.0 F Pulse Rate 78 77 Respiratory Rate 18 16 Blood Pressure 121/66 137/70 Pulse Oximetry 93 L 94 L 91 L 04/19/18 20:18 04/20/18 00:00 04/20/18 08:00 Temperature 97.8 F 97.6 F Pulse Rate 89 77 76 Respiratory Rate 12 16 17 Blood Pressure 127/64 131/69 Pulse Oximetry 94 L 95 Intake & Output 04/19/18 04/20/18 04/20/18 18:59 06:59 18:59 Intake Total 750 / 750 Balance 750 / 750 Intake: IV 150 / 150 Levaquin 750 mg Premix Inj 150 150 / 150 ML @ 100 mls/hr IV.SIG Q24H [facility] Rx#:[id number] Oral 600 / 600 Other: # Voids 1 3 Date of Last Bowel Movement 04/16/18 # Bowel Movements 1 Narrative: GENERAL: This is a well-nourished, well-developed patient, in no apparent distress. SKIN: Warm and dry. HEENT: Normocephalic. Pupils equal round. Nose without bleeding. Airway patent. NECK: Trachea midline. CARDIOVASCULAR: Regular rate and rhythm without murmurs, gallops, or rubs. RESPIRATORY: Breath sounds equal bilaterally. Occ Crackles GASTROINTESTINAL: Abdomen soft, round,+ bowel sounds, LUQ tenderness, + Bowel sounds.No mass. MUSCULOSKELETAL: Extremities without clubbing, cyanosis, or edema. NEUROLOGICAL: Awake and alert. Oriented to time, place, person. No focal neuro deficit. Moves all extremities. Normal speech. Results - Labs CBC & Chem 7: 04/19/18 08:13 04/19/18 08:13 Microbiology 04/18/18 14:05 Tissue - Lung Gram Stain - Final 04/18/18 14:05 Tissue - Lung Wound Culture - Preliminary No growth in 24 hours - Imaging Impressions Abdomen/Pelvis CTA 04/19/18 00:00 CONCLUSION: Assessment and Plan - Assessment (1) COPD (chronic obstructive pulmonary disease) Code(s): J44.9 - Chronic obstructive pulmonary disease, unspecified Status: Acute (2) Pneumonia Code(s): J18.9 - Pneumonia, unspecified organism Status: Acute (3) Intractable pain Code(s): R52 - Pain, unspecified Status: Acute (4) Leukocytosis Code(s): D72.829 - Elevated white blood cell count, unspecified Status: Acute (5) Lung mass Code(s): R91.8 - Other nonspecific abnormal finding of lung field Status: Acute (6) Prostate CA Code(s): C61 - Malignant neoplasm of prostate Status: Acute (7) Lung cancer Code(s): C34.90 - Malignant neoplasm of unspecified part of unspecified bronchus or lung Status: Acute - Plan 1. Will continue Duoneb nebs qid . 2. O2 2 L N/C PRN 3. Enema today and lactulose PO 4. Get CT Brain 5. Pain Control with [place] 5/325 mg q6h prn 6. Continue levaquin 750 Mg IV daily 7. Needs PET Ct as OP 8 Oncology and Thoracic surgery Evaluation
--- NOTE | 2018-04-20 13:48 | P.PNGI ---
Subjective Interval history: Pt resting in bed, and son at bedside. Reports he has had some BMs since enemas yesterday. Pain now mostly in his back on both sides, also having some pain in his mid upper abdomen with palpation. Denies nausea and vomiting. <Kierra Gagnon - Last Filed: 04/20/18 13:44> Interval history: Patient was seen and examined, agree with above note, plan for colonoscopy tomorrow <Slime Covarrubias - Last Filed: 04/20/18 18:46> Physical Exam Vital signs: Vital Signs 04/19/18 14:01 04/19/18 16:00 04/19/18 20:00 Temperature 98.0 F 98.0 F Pulse Rate 76 78 77 Respiratory Rate 20 18 16 Blood Pressure 121/66 137/70 Pulse Oximetry 93 L 94 L 04/19/18 20:17 04/19/18 20:18 04/20/18 00:00 Temperature 97.8 F Pulse Rate 89 77 Respiratory Rate 12 16 Blood Pressure 127/64 Pulse Oximetry 91 L 94 L 04/20/18 08:00 04/20/18 12:00 Temperature 97.6 F 97.5 F L Pulse Rate 76 78 Respiratory Rate 17 17 Blood Pressure 131/69 157/72 H Pulse Oximetry 95 93 L Intake & Output 04/19/18 04/20/18 04/20/18 18:59 06:59 18:59 Intake Total 750 / 750 Balance 750 / 750 Intake: IV 150 / 150 Levaquin 750 mg Premix Inj 150 150 / 150 ML @ 100 mls/hr IV.SIG Q24H [facility] Rx#:[id number] Oral 600 / 600 Other: # Voids 1 3 Date of Last Bowel Movement 04/16/18 # Bowel Movements 1 - Constitutional no acute distress - Routine HEENT Exam Head: Present: normocephalic, atraumatic - Routine Respiratory Exam Absent: accessory muscle use - Routine Cardiovascular Exam Present: RRR - Routine Abdominal Exam Present: soft, normoactive bowel sounds, tenderness, distended - Routine Skin Exam Present: dry, warm - Routine Neurological Exam Present: alert, oriented X3 <Kierra Gagnon - Last Filed: 04/20/18 13:44> Vital signs: Vital Signs 04/19/18 20:00 04/19/18 20:17 04/19/18 20:18 Temperature 98.0 F Pulse Rate 77 89 Respiratory Rate 16 12 Blood Pressure 137/70 Pulse Oximetry 94 L 91 L 04/20/18 00:00 04/20/18 08:00 04/20/18 12:00 Temperature 97.8 F 97.6 F 97.5 F L Pulse Rate 77 76 78 Respiratory Rate 16 17 17 Blood Pressure 127/64 131/69 157/72 H Pulse Oximetry 94 L 95 93 L 04/20/18 16:00 04/20/18 16:05 Temperature 97.8 F Pulse Rate 92 H Respiratory Rate 17 15 Blood Pressure 145/63 H Pulse Oximetry 90 L Intake & Output 04/19/18 04/20/18 04/20/18 18:59 06:59 18:59 Intake Total 750 / 750 1999 Balance 750 / 750 1999 Intake: IV 150 / 150 Levaquin 750 mg Premix Inj 150 150 / 150 ML @ 100 mls/hr IV.SIG Q24H [facility] Rx#:[id number] Oral 600 / 600 1999 Other: # Voids 1 3 3 Date of Last Bowel Movement 04/16/18 04/19/18 # Bowel Movements 1 <Slime Covarrubias - Last Filed: 04/20/18 18:46> Results - Labs CBC & Chem 7: 04/19/18 08:13 04/19/18 08:13 Microbiology 04/18/18 14:05 Tissue - Lung Gram Stain - Final 04/18/18 14:05 Tissue - Lung Wound Culture - Preliminary No growth in 48 hours - Imaging Impressions Abdomen/Pelvis CTA 04/19/18 00:00 CONCLUSION: <Kierra Gagnon - Last Filed: 04/20/18 13:44> - Labs CBC & Chem 7: 04/19/18 08:13 04/19/18 08:13 Laboratory Results - last 24 hr 04/20/18 15:10 CA 19-9 Antigen 233.8 H Microbiology 04/18/18 14:05 Tissue - Lung Gram Stain - Final 04/18/18 14:05 Tissue - Lung Wound Culture - Preliminary No growth in 48 hours <Slime Covarrubias - Last Filed: 04/20/18 18:46> Assessment and Plan - Plan Assessment: - Abdominal pain- When asked to localize pain, pt points to his left flank and states it wraps around to his back. States pain is constant, rates it a 6/10. However, exam reveals pt is tender to palpation over entire abdomen. States one episode of emesis yesterday after eating, denies any other nausea or vomiting. Denies heartburn. Reports weight loss of 15 lbs over 9 months, was on chemotherapy and radiation during this time for prostate cancer. Also has noticed a decreased appetite. Has had no BM in 3 days, states prior to this BMs were normal, denies blood in stool. Has never had EGD or colonoscopy. Of note, has been taking Ibuprofen almost every night for neck, back, and arm pain. Denies significant GI family history CT abdomen and pelvis WO IV contrast --> Mild diverticulosis with no inflammatory change. No visualized etiology to explain the patient's pain US abdomen --> No acute findings. Probable small gallbladder polyp. No hydronephrosis. Echogenic, small right kidney. - History of prostate cancer S/P chemotherapy and radiation - Mass lesion in right upper lobe- pulmonology following (04/19) S/P EGD and colonoscopy yesterday EGD --> Irregular Z line from the GE junction, otherwise normal Colonoscopy --> Unable to pass scope beyond the transverse colon due to poor prep. Initial plan was for repeat prep and repeat colonoscopy today. Pt was unable to tolerate prep and procedure was cancelled. Pt continues to have diffuse abdominal pain. Can not remember his last BM although 3 documented from yesterday. KUB consistent with ileus, Reglan ordered by hospitalist. (04/20) Pt has had some BMs since enemas yesterday. Mostly complaining of back pain, located on both sides, also having some abdominal pain, worse with palpation. Family and pt would like to proceed with colonoscopy tomorrow. Lung biopsy positive for adenocarcinoma. Oncology consult pending Plan: Colonoscopy tomorrow Obtain consent Clear liquids today Golytely prep NPO after MN Soap suds enema in AM Further recommendations to follow Pt has been seen and examined by myself and Dr. Covarrubias and this note is written on his behalf <Kierra Gagnon - Last Filed: 04/20/18 13:44>
[2018-04-20] MEDS ORDERED: Morphine Inj 4 MG/ML Vial IV.PUSH PRN (14:17)
[2018-04-20] MEDS ORDERED: PEG 3350/E-Lyte Soln 4000 ML Bottle PO ONE (16:00)
[2018-04-20] MEDS ORDERED: Metoprolol Tartrate 25 MG Tablet PO SCH (22:00)
[2018-04-20] MEDS ORDERED: Chlorhexidine Gluconate 2% 1 Pack (2 Cloths) TOPICAL SCH (22:00)
[2018-04-20] MEDS ORDERED: Sodium Chlor 0.9% Inj 500 ML IV.SIG SCH (22:00)
[2018-04-21] MEDS: amLODIPine 5 MG Tablet PO SCH (07:45)
--- NOTE | 2018-04-21 08:54 | P.PN ---
Subjective Interval history: Follow-up visit for lung adenocarcinoma, abdominal pain, and back pain. Patient is seen and examined resting in stretcher, will be going down to GI lab for colonoscopy this morning. He denies any nausea, vomiting, fevers, chills, cough, shortness of breath or chest pain. He reports abdominal pain has improved although bili is thread cutter tender. Back pain continues, does obtain relief with oral pain medication. Patient mentions to me that about 5 months ago while working at home he was hit by a piece of wood in the abdomen which threw him back. Mentions this to me in case this may be related to his back and abdominal pain. No issues overnight reported by nursing staff. Physical Exam Vital signs: Vital Signs 04/20/18 12:00 04/20/18 16:00 04/20/18 16:05 Temperature 36.4 C L 36.6 C Pulse Rate 78 92 H Respiratory Rate 17 17 15 Blood Pressure 157/72 H 145/63 H Pulse Oximetry 93 L 90 L 04/20/18 20:00 04/21/18 00:00 04/21/18 02:20 Temperature 36.8 C 36.8 C Pulse Rate 77 80 Respiratory Rate 18 18 17 Blood Pressure 148/70 H 134/63 Pulse Oximetry 94 L 94 L 04/21/18 04:00 04/21/18 07:48 Temperature 36.6 C 36.7 C Pulse Rate 74 75 Respiratory Rate 18 16 Blood Pressure 131/62 126/67 Pulse Oximetry 94 L 94 L Intake & Output 04/20/18 04/21/18 04/21/18 18:59 06:59 18:59 Intake Total 1999 420 / 420 0 / 0 Balance 1999 420 / 420 0 / 0 Weight 67.1 kg Intake: Oral 1999 420 / 420 0 / 0 Other: # Voids 3 3 1 Date of Last Bowel Movement 04/19/18 04/19/18 04/20/18 Narrative: GENERAL: This is a well-nourished, well-developed patient, in no apparent distress. SKIN: Warm and dry. HEENT: Normocephalic. Pupils equal round. Nose without bleeding. Airway patent. NECK: Trachea midline. CARDIOVASCULAR: Regular rate and rhythm without murmurs, gallops, or rubs. RESPIRATORY: Clear to auscultation. Breath sounds equal bilaterally. No wheezes , rales, or rhonchi. GASTROINTESTINAL: Abdomen soft, round,+ bowel sounds, positive generalized tenderness. + Bowel sounds. MUSCULOSKELETAL: Extremities without clubbing, cyanosis, or edema. NEUROLOGICAL: Awake and alert. Oriented to time, place, person. No focal neuro deficit. Moves all extremities. Normal speech. Results - Labs CBC & Chem 7: 04/19/18 08:13 04/19/18 08:13 Laboratory Results - last 24 hr 04/20/18 15:10 CA 19-9 Antigen 233.8 H Microbiology 04/18/18 14:05 Tissue - Lung Gram Stain - Final 04/18/18 14:05 Tissue - Lung Wound Culture - Final No growth in 72 hours (aerobically and anaerobically ) Assessment and Plan - Assessment (1) Intractable pain Code(s): R52 - Pain, unspecified Status: Acute (2) Leukocytosis Code(s): D72.829 - Elevated white blood cell count, unspecified Status: Acute (3) Lung mass Code(s): R91.8 - Other nonspecific abnormal finding of lung field Status: Acute (4) Prostate CA Code(s): C61 - Malignant neoplasm of prostate Status: Acute - Plan 77-year-old male with a PMH of Prostate CA who presented to ER with complaints of back and abdominal pain x2 days Abdominal pain, diverticulosis Intractable Pain: c/o back/abdominal pain, no acute injury -CT Abd/Pelvis w/ no acute findings, mild diverticulosis without inflammatory change. -continue w/ analgesics/antiemetics as needed, PRN rectal Phenergan. -Abdominal US with no acute findings -Liver enzymes and Lipase WNL -GI consult, greatly appreciate assistance. -Upper endoscopy unremarkable with the exception of irregular Z line questionable for Farr's esophagitis, biopsy obtained. -KUB 04/14 showing nonspecific bowel gas pattern most consistent with ileus. + BM's - 1x dose of Relistor, Continue IV Reglan. -Pain control with IV morphine and Ventura. -Check CT angiogram of abdomen for possible mesenteric ischemia negative. -Colonoscopy today Lumbar spine pain - Discussed with radiologist regarding CTA , reviewed and no concerning findings that would explain back pain. - Bone scan ordered. -Pain regimen. Lung Mass Vs Acute PNA, CAP Leukocytosis: WBC 17, Afebrile. -CXR w/ possible lung mass similar to previous imaging, ?recurrent infiltrate vs mass. CT Chest 03/12/17 reviewed-showing RUL wedge-shaped consolidation 3.3 x 3.4 cm. -CT Chest showed worrisome mass in the posterior right upper lobe most characteristic of primary bronchogenic carcinoma. The mass is amenable to CT- guided core biopsy. 2. Right hilar adenopathy and prominent aortopulmonary window node. 3. Further evaluation with PET/CT would be helpful for staging -on empiric Levaquin IV for possible PNA, afebrile, no respiratory complaints. Discontinue Levaquin and monitor. -Pulmonary following, status post biopsy, findings positive for adenocarcinoma on lung biopsy. - Consult Oncology for further evaluation, bone scan ordered, CA 19-9 233.8 - Medical records from prostate CA treatment requested. Prostate CA, Hx -s/p chemo/radiation, per patient and family he completed treatment approx 7 months ago. -Outpatient follow up as scheduled. DVT Prophylaxis: SCD/Teds Discussed Condition With: Discussed with patient Discharge Planning: Lung biopsy positive for adenocarcinoma, oncology consulted, not yet ready for discharge.
[2018-04-21] MEDS: Senna/Docusate Sodium 8.6/50 MG Tablet PO SCH ×2 (09:16→20:59)
--- NOTE | 2018-04-21 09:29 | MB ---
cc: Jane Robledo MD DATE: 04/20/2018 CHIEF COMPLAINT: Lung mass suspicious for malignancy. HISTORY OF PRESENT ILLNESS: Mr. Rodriguez is a 77-year-old gentleman with a history of prostate cancer diagnosed under the direction of Dr. Chandler. He is status post biopsy and radiation therapy approximately 3 months ago. He also has a history of tobacco abuse. He was admitted to the hospital with mild shortness of breath and severe back and abdominal pain that is sudden onset and of 2 days' duration. He did not have associated vomiting or diarrhea with his abdominal pain. The gastroenterology team evaluated his pain and planned for EGD and colonoscopy. Colonoscopy from 04/18 showed that there was poor prep and unable to pass the scope beyond the transverse colon. No abnormalities in the rectum. Procedure was terminated due to poor prep. Upper scope from the same day showed irregular Z-line. Biopsy from the EG junction performed. Normal endoscopy otherwise. GI team plans for repeat colonoscopy on 04/21/2018. He underwent a CT-guided biopsy of a lung lesion that was seen on CT scan with pathology results revealing mucinous adenocarcinoma. The pathology comment showed that stains were done, which was consistent with a metastatic pancreatic ductal carcinoma or cholangiogram. This pattern may also be seen in tumors of the esophagus and stomach, rarely seen in mucinous lung cancer, also recommended clinical correlation. Pathology from the esophagus revealed gastric type mucosa with mildly active chronic inflammation, negative for intestinal metaplasia and glandular dysplasia. CT scan of the abdomen and pelvis with mild diverticulosis with no inflammatory change. No visualized etiology to explain the patient's pain. CT scan of the chest with 4.2 x 4.1 cm mass in the right upper lobe. There is also noted right hilar adenopathy with prominent aortopulmonary window node noted as well, measuring up to 1.9 cm in greatest diameter. CTA of the abdomen and pelvis with metastatic adenopathy in the right hilum. No evidence of mesenteric ischemia. ROS as above in the HPI all other ROS negative PAST MEDICAL HISTORY: History of prostate cancer. PAST SURGICAL HISTORY: Appendectomy. SOCIAL HISTORY: The patient is a former smoker. He quit approximately 30 years ago. Prior to that, he smoked about 1-2 packs per day. FAMILY HISTORY: No known family history of malignancy. PHYSICAL EXAMINATION: GENERAL: Well-developed, well-nourished man in no distress. HEENT: Head is normocephalic, atraumatic. NECK: Supple with no palpable lymphadenopathy. CARDIOVASCULAR: Regular rate and rhythm. No murmurs. RESPIRATORY: Clear to auscultation bilaterally. ABDOMEN: Protuberant, diffusely tender to palpation. EXTREMITIES: No edema. NEUROLOGIC: Grossly nonfocal. PSYCHIATRIC: Appropriate mood and affect. MUSCULOSKELETAL: Back pain present. ASSESSMENT AND PLAN: 1. Lung mass biopsied revealed mucinous adenocarcinoma. Given large lung mass in addition to likely hilar adenopathy, this is suspicious for a primary lung cancer, although pathology team noted that it could be seen in gastrointestinal origin. EGD revealed no abnormalities in the esophagus and the stomach and imaging studies have shown no evidence of tumor being pancreatic or biliary in nature. He will need to have outpatient PET CT scan. We will order MRI of the brain to be done while he is inpatient. 2. History of prostate cancer followed by Dr. Chandler. We will order a repeat PSA. MD ARABELLA Licea/JAVIER , 08:55 AM , 09:04 AM RODRIGO
--- NOTE | 2018-04-21 11:46 | GIPROC ---
[facility] [address] [facility]. [facility], [address] COLONOSCOPY PROCEDURE REPORT EXAM DATE: 04/21/2018 PATIENT NAME: Herb Benavides MR #: [id number] BIRTHDATE: 1940 ENDOSCOPIST: Slime Covarrubias MD ORDER #: [id number] PIER MASTER ASSISTANT: Dony Bowens and Nataly Esquivel STATUS: inpatient INDICATIONS: The patient is a 77 yr old male here for a colonoscopy due to abdominal pain PROCEDURE PERFORMED: Colonoscopy, incomplete MEDICATIONS: None and Per Anesthesia. PREP QUALITY: poor ESTIMATED BLOOD LOSS: None CONSENT: The patient understands the risks and benefits of the procedure and understands that these risks include, but are not limited to: sedation, allergic reaction, infection, perforation and/or bleeding. Alternative means of evaluation and treatment include, among others: physical exam, x-rays, and/or surgical intervention. The patient elects to proceed with this endoscopic procedure. medical equipment was checked for proper function. Hand hygiene and appropriate measures for infection prevention was taken. After the risks, benefits and alternatives of the procedure were thoroughly explained, Informed consent was verified, confirmed and timeout was successfully executed by the treatment team. A digital exam revealed no abnormalities of the rectum The Pentax [id number] endoscope was introduced through the anus and advanced to the sigmoid colon. The instrument was then slowly withdrawn as the colon was fully examined. COLON FINDINGS: Poor prep significant amount of stool unable to pass beyond the sigmoid. Retroflexed views revealed no abnormalities The scope was then completely withdrawn from the patient and the procedure terminated. ADVERSE EVENTS: There were no complications. IMPRESSIONS: 1. Poor prep significant amount of stool unable to pass beyond the sigmoid 2. Retroflexed views revealed no abnormalities 3. Revealed no abnormalities of the rectum RECOMMENDATIONS: Repeat colonoscopy if the patient willing to take another prep RECALL: Return 1 day Colonoscopy Slime Covarrubias MD eSigned: Slime Covarrubias MD 04/21/2018 11:46 AM cc:
--- NOTE | 2018-04-21 11:57 | P.PNGI ---
Subjective Interval history: Patient without complaint, less abdominal pain, he said he took his prep Physical Exam Vital signs: Vital Signs 04/20/18 12:00 04/20/18 16:00 04/20/18 16:05 Temperature 97.5 F L 97.8 F Pulse Rate 78 92 H Respiratory Rate 17 17 15 Blood Pressure 157/72 H 145/63 H Pulse Oximetry 93 L 90 L 04/20/18 20:00 04/21/18 00:00 04/21/18 02:20 Temperature 98.3 F 98.2 F Pulse Rate 77 80 Respiratory Rate 18 18 17 Blood Pressure 148/70 H 134/63 Pulse Oximetry 94 L 94 L 04/21/18 04:00 04/21/18 07:48 Temperature 97.8 F 98.1 F Pulse Rate 74 75 Respiratory Rate 18 16 Blood Pressure 131/62 126/67 Pulse Oximetry 94 L 94 L Intake & Output 04/20/18 04/21/18 04/21/18 18:59 06:59 18:59 Intake Total 1999 420 / 420 0 / 0 Balance 1999 420 / 420 0 / 0 Weight 67.1 kg Intake: Oral 1999 420 / 420 0 / 0 Other: # Voids 3 3 1 Date of Last Bowel Movement 04/19/18 04/19/18 04/20/18 - Constitutional no acute distress - Routine HEENT Exam Head: Present: normocephalic Eye: Present: EOMI, PERRL ENT: Present: mucous membranes moist - Routine Neck Exam Present: supple, full ROM - Routine Respiratory Exam Comments: Normal lung exam - Routine Cardiovascular Exam Present: RRR, S1, S2 - Routine Abdominal Exam Present: soft, normoactive bowel sounds Results - Labs CBC & Chem 7: 04/19/18 08:13 04/19/18 08:13 Laboratory Results - last 24 hr 04/20/18 15:10 CA 19-9 Antigen 233.8 H Microbiology 04/18/18 14:05 Tissue - Lung Gram Stain - Final 04/18/18 14:05 Tissue - Lung Wound Culture - Final No growth in 72 hours (aerobically and anaerobically ) Assessment and Plan - Plan Assessment: - Abdominal pain- When asked to localize pain, pt points to his left flank and states it wraps around to his back. States pain is constant, rates it a 6/10. However, exam reveals pt is tender to palpation over entire abdomen. States one episode of emesis yesterday after eating, denies any other nausea or vomiting. Denies heartburn. Reports weight loss of 15 lbs over 9 months, was on chemotherapy and radiation during this time for prostate cancer. Also has noticed a decreased appetite. Has had no BM in 3 days, states prior to this BMs were normal, denies blood in stool. Has never had EGD or colonoscopy. Of note, has been taking Ibuprofen almost every night for neck, back, and arm pain. Denies significant GI family history CT abdomen and pelvis WO IV contrast --> Mild diverticulosis with no inflammatory change. No visualized etiology to explain the patient's pain US abdomen --> No acute findings. Probable small gallbladder polyp. No hydronephrosis. Echogenic, small right kidney. - History of prostate cancer S/P chemotherapy and radiation - Mass lesion in right upper lobe- pulmonology following (04/19) S/P EGD and colonoscopy yesterday EGD --> Irregular Z line from the GE junction, otherwise normal Colonoscopy --> Unable to pass scope beyond the transverse colon due to poor prep. Initial plan was for repeat prep and repeat colonoscopy today. Pt was unable to tolerate prep and procedure was cancelled. Pt continues to have diffuse abdominal pain. Can not remember his last BM although 3 documented from yesterday. KUB consistent with ileus, Reglan ordered by hospitalist. (04/20) Pt has had some BMs since enemas yesterday. Mostly complaining of back pain, located on both sides, also having some abdominal pain, worse with palpation. Family and pt would like to proceed with colonoscopy tomorrow. Lung biopsy positive for adenocarcinoma. Oncology consult pending 04/21/2018 patient supposedly took his prep, I performed colonoscopy today which was incomplete because his poor prep I was not able to pass the scope beyond sigmoid Plan: Colonoscopy tomorrow with more prep if the patient willing to do it Obtain consent Clear liquids today Golytely prep NPO after MN Soap suds enema in AM Further recommendations to follow
[2018-04-21] MEDS ORDERED: LORazepam 1 MG Tablet PO PRN (13:36)
[2018-04-21] MEDS ORDERED: Gadobenate Dimeglumine PF Inj 10 ML VIAL (for RAD MRI) IVCONTRAST ONE (14:51)
--- NOTE | 2018-04-21 15:52 | MR ---
EXAM DATE: 04/21/2018 3:11 PM EDT AGE/SEX: 77 years / Male INDICATIONS: . Staging, history of prostate cancer and possible lung cancer. CLINICAL DATA: This is the patient's initial encounter. Patient reports that signs and symptoms have been present for 1 day and indicates a pain score of 2/10. MEDICAL/SURGICAL HISTORY: Carcinoma, prostatic. Carcinoma, lung. Appendectomy. Radiation seeds for prostate cancer. [place] [facility] [place]. . TECHNIQUE: Multiplanar, multisequence examination of the brain was performed without and with 13 ml M ultihance (gadobenate) contrast as a single exam dose. FINDINGS: Cerebrum: The ventricles are normal for age. No evidence of midline shift, mass lesion, hemorrhage or acute infarction. No extraaxial fluid collections are seen. The pituitary gland and suprasellar cistern are normal in configuration. White Matter: No significant signal abnormalities are seen in the white matter. Posterior Fossa: The cerebellum and brainstem are intact. The 4th ventricle is midline. The cerebel lopontine angle is unremarkable. The cerebellar tonsils are normal in position. Diffusion Imaging: No focal areas of restricted diffusion are seen. No evidence of acute infarction . Extracranial: The visualized portions of the orbits and paranasal sinuses are unremarkable. Post Contrast: No abnormal areas of parenchymal or dural enhancement. No evidence of blood-brain ba rrier breakdown. CONCLUSION: 1. No evidence of metastatic disease. 2. Mild atrophy. Electronically signed by: Peyman Rose MD 04/21/2018 3:51 PM EDT
--- NOTE | 2018-04-21 16:07 | NM ---
INDICATIONS: Prostate cancer with lug mass. CLINICAL DATA: This is the patient's initial encounter. Patient reports that signs and symptoms have been present for 1 day and indicates a pain score of 0/10. MEDICAL/SURGICAL HISTORY: Carcinoma, prostatic. Chronic obstructive pulmonary disease. None. COMPARISON: No prior exams available for comparison. TECHNIQUE: . . Whole body bone scan was performed at 2-3 hours. No correlative bone scan available for comparison. DOSE: 31 mCi Tc99m MDP IV FINDINGS: Whole body bone scan demonstrates no suspicious uptake in the axial or appendicular skeleton. No foc al areas of increased or decreased uptake are seen. CONCLUSION: No evidence of metastatic disease. Electronically signed by: Kevin Shook MD 04/21/2018 4:06 PM EDT
[2018-04-21] MEDS ORDERED: Magnesium Citrate Liq 300 ML Bottle PO ONE (17:28)
[2018-04-21] MEDS ORDERED: PEG 3350/E-Lyte Soln 4000 ML Bottle PO ONE (17:30)
--- NOTE | 2018-04-21 19:06 | P.PN ---
Subjective Interval history: Has some abdominal pain still. Off O2 sat 95. Will go for EGD. C/O Back pains. Lung biopsy positive for adenocarcinoma- Metastatic Physical Exam Vital signs: Vital Signs 04/20/18 20:00 04/21/18 00:00 04/21/18 02:20 Temperature 98.3 F 98.2 F Pulse Rate 77 80 Respiratory Rate 18 18 17 Blood Pressure 148/70 H 134/63 Pulse Oximetry 94 L 94 L 04/21/18 04:00 04/21/18 07:48 04/21/18 11:44 Temperature 97.8 F 98.1 F 97.4 F L Pulse Rate 74 75 77 Respiratory Rate 18 16 20 Blood Pressure 131/62 126/67 92/50 L Pulse Oximetry 94 L 94 L 94 L 04/21/18 11:50 04/21/18 12:00 04/21/18 14:02 Temperature Pulse Rate 83 Respiratory Rate 20 18 Blood Pressure 102/58 L 122/58 L 149/69 H Pulse Oximetry 92 L 04/21/18 14:03 04/21/18 18:00 Temperature 97.2 F L Pulse Rate 85 Respiratory Rate 18 Blood Pressure 157/56 H Pulse Oximetry 94 L 157 H Intake & Output 04/21/18 04/21/18 04/22/18 06:59 18:59 06:59 Intake Total 420 / 420 200 / 200 Balance 420 / 420 200 / 200 Weight 67.1 kg Intake: Oral 420 / 420 0 / 0 Anesthesia Amount 200 / 200 Other: # Voids 3 1 Date of Last Bowel Movement 04/19/18 04/20/18 Narrative: GENERAL: This is a well-nourished, well-developed patient, in no apparent distress. SKIN: Warm and dry. HEENT: Normocephalic. Pupils equal round. Nose without bleeding. Airway patent. NECK: Trachea midline. No lymphadenopathy CARDIOVASCULAR: Regular rate and rhythm without murmurs, gallops, or rubs. RESPIRATORY: Clear to auscultation. Breath sounds equal bilaterally. No wheezes , rales, or rhonchi. GASTROINTESTINAL: Abdomen soft, round,+ bowel sounds, positive generalized tenderness. + Bowel sounds. MUSCULOSKELETAL: Extremities without clubbing, cyanosis, or edema. NEUROLOGICAL: Awake and alert. Oriented to time, place, person. No focal neuro deficit. Moves all extremities. Normal speech. Results - Labs CBC & Chem 7: 04/19/18 08:13 04/19/18 08:13 Microbiology 04/18/18 14:05 Tissue - Lung Gram Stain - Final 04/18/18 14:05 Tissue - Lung Wound Culture - Final No growth in 72 hours (aerobically and anaerobically ) - Imaging Impressions Bone Scan Nuclear Medicine 04/21/18 00:00 CONCLUSION: No evidence of metastatic disease. Head MRI 04/21/18 00:00 CONCLUSION: 1. No evidence of metastatic disease. 2. Mild atrophy. Assessment and Plan - Assessment (1) COPD (chronic obstructive pulmonary disease) Code(s): J44.9 - Chronic obstructive pulmonary disease, unspecified Status: Acute (2) Pneumonia Code(s): J18.9 - Pneumonia, unspecified organism Status: Acute (3) Intractable pain Code(s): R52 - Pain, unspecified Status: Acute (4) Leukocytosis Code(s): D72.829 - Elevated white blood cell count, unspecified Status: Acute (5) Lung mass Code(s): R91.8 - Other nonspecific abnormal finding of lung field Status: Acute (6) Prostate CA Code(s): C61 - Malignant neoplasm of prostate Status: Acute (7) Lung cancer Code(s): C34.90 - Malignant neoplasm of unspecified part of unspecified bronchus or lung Status: Acute - Plan 1. D/C Duoneb nebs . 2. O2 2 L N/C PRN 3. EGD in am. 4. Bone scan , CBC ,BMP 5. Pain Control with Arabi 5/325 mg q6h prn 6. D/C levaquin 7. Needs PET CT as OP 8 Oncology evaluation
[2018-04-22] MEDS: amLODIPine 5 MG Tablet PO SCH (11:20)
[2018-04-22] MEDS: Senna/Docusate Sodium 8.6/50 MG Tablet PO SCH ×2 (11:20→21:25)
--- NOTE | 2018-04-22 11:31 | P.PN ---
Subjective Interval history: Follow-up visit for lung adenocarcinoma, abdominal pain, and back pain. Patient reports that he is feeling better however continues to have lower back pain. Feels as if this lower back pain is worsening. Describes pain as stretching and aching. Denies any further abdominal pain, nausea, vomiting, diarrhea, cough or shortness of breath. Spoke with nurse reports najma Estevez would like to be made aware of any additional testing prior to this being performed. Physical Exam Vital signs: Vital Signs 04/21/18 11:44 04/21/18 11:50 04/21/18 12:00 Temperature 36.3 C L Pulse Rate 77 Respiratory Rate 20 20 Blood Pressure 92/50 L 102/58 L 122/58 L Pulse Oximetry 94 L 92 L 04/21/18 14:02 04/21/18 14:03 04/21/18 18:00 Temperature 36.2 C L Pulse Rate 83 85 Respiratory Rate 18 18 Blood Pressure 149/69 H 157/56 H Pulse Oximetry 94 L 157 H 04/21/18 20:00 04/22/18 00:00 04/22/18 08:00 Temperature 36.5 C 36.4 C 36.6 C Pulse Rate 76 74 74 Respiratory Rate 16 17 16 Blood Pressure 143/65 H 138/68 140/64 Pulse Oximetry 93 L 94 L 94 L Intake & Output 04/21/18 04/22/18 04/22/18 18:59 06:59 18:59 Intake Total 200 / 200 300 / 300 Output Total 200 / 200 Balance 200 / 200 100 / 100 Weight 67.3 kg Intake: Oral 0 / 0 300 / 300 Anesthesia Amount 200 / 200 Output: Urine 200 / 200 Other: # Voids 1 Date of Last Bowel Movement 04/20/18 04/21/18 04/21/18 Narrative: GENERAL: This is a well-nourished, well-developed patient, in no apparent distress. SKIN: Warm and dry. HEENT: Normocephalic. Pupils equal round. Nose without bleeding. Airway patent. NECK: Trachea midline. CARDIOVASCULAR: Regular rate and rhythm without murmurs, gallops, or rubs. RESPIRATORY: Clear to auscultation. Breath sounds equal bilaterally. No wheezes , rales, or rhonchi. GASTROINTESTINAL: Abdomen soft, round,+ bowel sounds, no tenderness, + Bowel sounds. MUSCULOSKELETAL: Extremities without clubbing, cyanosis, or edema. Lumbar spine tenderness with palpation. NEUROLOGICAL: Awake and alert. Oriented to time, place, person. No focal neuro deficit. Moves all extremities. Bilateral lower extremity strength 5/5, sensation intact. Normal speech. Results - Labs CBC & Chem 7: 04/19/18 08:13 04/19/18 08:13 Microbiology 04/18/18 14:05 Tissue - Lung Gram Stain - Final 04/18/18 14:05 Tissue - Lung Wound Culture - Final No growth in 72 hours (aerobically and anaerobically ) - Imaging Impressions Bone Scan Nuclear Medicine 04/21/18 00:00 CONCLUSION: No evidence of metastatic disease. Head MRI 04/21/18 00:00 CONCLUSION: 1. No evidence of metastatic disease. 2. Mild atrophy. Assessment and Plan - Assessment (1) Intractable pain Code(s): R52 - Pain, unspecified Status: Acute (2) Leukocytosis Code(s): D72.829 - Elevated white blood cell count, unspecified Status: Acute (3) Lung mass Code(s): R91.8 - Other nonspecific abnormal finding of lung field Status: Acute (4) Prostate CA Code(s): C61 - Malignant neoplasm of prostate Status: Acute - Plan 77-year-old male with a PMH of Prostate CA who presented to ER with complaints of back and abdominal pain x2 days Abdominal pain, diverticulosis Intractable Pain: c/o back/abdominal pain, no acute injury -CT Abd/Pelvis w/ no acute findings, mild diverticulosis without inflammatory change. -continue w/ analgesics/antiemetics as needed, PRN rectal Phenergan. -Abdominal US with no acute findings -Liver enzymes and Lipase WNL -GI consult, greatly appreciate assistance. -Upper endoscopy unremarkable with the exception of irregular Z line questionable for Farr's esophagitis, biopsy obtained. -KUB 04/14 showing nonspecific bowel gas pattern most consistent with ileus. + BM's - 1x dose of Relistor, Continue IV Reglan. -Pain control with IV morphine and Casanova. -Check CT angiogram of abdomen for possible mesenteric ischemia negative. -Colonoscopy today Lumbar spine pain - Discussed with radiologist regarding CTA , reviewed and no concerning findings that would explain back pain. - Bone scan negative -Discussed with son over the phone, CT scans of abdomen have been negative and 2 colonoscopies unable to be completed due to poor prep. I also discussed with son CT scan reviewed with radiologist, he is agreeable with MRI of lumbar spine. -Ongoing pain, check MRI of lumbar spine, and baclofen and Lidoderm patch Adenocarcinoma of the lung -CXR w/ possible lung mass similar to previous imaging, ?recurrent infiltrate vs mass. CT Chest 03/12/17 reviewed-showing RUL wedge-shaped consolidation 3.3 x 3.4 cm. -CT Chest showed worrisome mass in the posterior right upper lobe most characteristic of primary bronchogenic carcinoma. The mass is amenable to CT- guided core biopsy. 2. Right hilar adenopathy and prominent aortopulmonary window node. 3. Further evaluation with PET/CT would be helpful for staging -s/p IV Levaquin course -Pulmonary following, status post biopsy, findings positive for adenocarcinoma on lung biopsy. - Consult Oncology for further evaluation, bone scan negative, MRI of the head negative for metastatic disease, CA 19-9 233.8 - Medical records from prostate CA treatment requested. Prostate CA, Hx -s/p chemo/radiation, per patient and family he completed treatment approx 7 months ago. -Outpatient follow up as scheduled. DVT Prophylaxis: SCD/Teds Discussed Condition With: Discussed with patient, RN, son Herb via telephone. Discharge Planning: Oncology clearance, will go for MRI of lumbar spine today due to pain. Hoping for discharge tomorrow if not Tuesday for outpatient PET scan.
[2018-04-22] MEDS: Lidocaine 5% Patch T-DERMAL SCH (13:04)
[2018-04-22] MEDS: Baclofen 10 MG Tablet PO SCH ×2 (13:04→21:25)
--- NOTE | 2018-04-22 20:26 | MR ---
EXAM DATE: 04/22/2018 8:14 PM EDT AGE/SEX: 77 years / Male INDICATIONS: Pain. CLINICAL DATA: This is the patient's initial encounter. Patient reports that signs and symptoms have been present for 1 day and indicates a pain score of 5/10. MEDICAL/SURGICAL HISTORY: Carcinoma, lung. Carcinoma, prostatic. Appendectomy. COMPARISON: No prior exams available for comparison. TECHNIQUE: Multiplanar, multisequence MRI examination of the lumbar spine was performed without and with 6 ml Gadavist (gadobutrol) contrast as a single exam dose. FINDINGS: The most caudal-appearing lumbar vertebra is numbered as L5. Marrow is homogeneous. There is good preservation of disc space heights. T12-L1: The thecal sac has a normal diameter. No evidence of disc bulge or protrusion. The neural foramina are patent bilaterally. L1-L2: Mild disc bulging causing some flattening the anterior thecal space with mild spinal stenosi s. Mild facet disease. L2-L3: The thecal sac has a normal diameter. No evidence of disc bulge or protrusion. The neural foramina are patent bilaterally. L3-L4: The thecal sac has a normal diameter. No evidence of disc bulge or protrusion. The neural foramina are patent bilaterally. L4-L5: Mild disc bulging with minimal facet disease. There is no spinal stenosis. L5-S1: The thecal sac has a normal diameter. No evidence of disc bulge or protrusion. The neural foramina are patent bilaterally. SI joints are normal There is no abnormal contrast enhancement. Large peritoneal structures are intact. CONCLUSION: 1. Mild degenerative changes. I do not see evidence for metastatic disease. 2. Findings marginal at L1-2 for cause of patient's pain. Electronically signed by: Chaitanya Roland MD 04/22/2018 8:25 PM EDT
[2018-04-22] MEDS ORDERED: Gadobutrol PF 7.5 MMOL/7.5 ML Vial (for RAD) IV.SIG ONE (20:34)
[2018-04-23] MEDS: Baclofen 10 MG Tablet PO SCH ×2 (05:38→14:43)
[2018-04-23] MEDS: Senna/Docusate Sodium 8.6/50 MG Tablet PO SCH (10:08)
[2018-04-23] MEDS: amLODIPine 5 MG Tablet PO SCH (10:08)
[2018-04-23] MEDS: Lidocaine 5% Patch T-DERMAL SCH (10:08)
--- NOTE | 2018-04-23 12:09 | P.DS ---
Date of admission: 04/15/18 21:57 Primary care physician: UNKNOWN Brief History from admission: This is a 77-year-old male with a PMH of Prostate CA who presented to ER with complaints of back and abdominal pain x2 days. Pt denies injury/ trauma. Abdominal pain is generalized, intermittent, moderate-severe, 8/10, non -radiating, no associated nausea/vomiting or diarrhea. Back pain is moderate, sore, worse w/ movement. Denies fever, chills or sick contacts. States he completed Chemo/Radiation for Prostate CA approx 2-3 months ago. On arrival, BP 163/70, HR 78, O2 sat 100% on RA, Afebrile. WBC 17.2. Hemoglobin 10.8. Chemistry essentially unremarkable except for BUN 19, GFR 65. CRP 15. UA negative for UTI. CXR w/ rounded area of abnormal opacity RUL seen on prior CT , possible recurrent infiltrate vs. mass. CT Abd/Pelvis w/ no acute findings. S/p Morphine/Zofran in ER w/ some improvement. DS: Diagnosis - Discharge Diagnosis (1) Intractable pain Status: Acute (2) Leukocytosis Status: Acute (3) Lung mass Status: Acute (4) Prostate CA Status: Acute (5) Primary mucinous adenocarcinoma of lung Status: Acute DS: Medications - Discharge Medications Prescriptions: amlodipine [Norvasc] 5 mg PO DAILY #30 tab baclofen 10 mg PO Q8HR PRN #90 tab PRN Reason: Back spasms hydrocodone-acetaminophen 1 tab PO Q4H PRN #12 tab PRN Reason: pain 6-10 lidocaine [Lidoderm] 1 patch TRANSDERMAL DAILY #1 box DS: Summary Hospital Course: 77-year-old male with past medical history significant for prostate cancer treated with chemo and radiation who presented to the emergency department on 04/15 with complaints of back and abdominal pain 2 days. Afebrile on admission with mildly elevated WBC count at 17.2. Chest x-ray with rounded opacity in the right upper lung not previously seen and CAT scan with concerns for infiltrate versus mass. CT scan of the abdomen and pelvis without acute findings. Patient was started on IV Zosyn for possible pneumonia, pulmonary services consulted. He underwent CT of the chest which showed right upper lobe mass characteristic for bronchogenic carcinoma, right hilar adenopathy and prominent aortopulmonary window noted. He underwent CT-guided biopsy which was positive for mucinous adenocarcinoma. Oncology services were consulted and patient was seen and evaluated by Dr. Robledo. MRI of the brain ordered and negative, oncology recommended PET scan and CT scan as outpatient. Patient was also seen and evaluated by gastroenterology during his hospitalization due to acute abdominal pain, nausea and vomiting. Patient underwent upper endoscopy which was unremarkable with the exception of irregular Z line questionable for Farr's, biopsies taken. Patient had 2 attempted colonoscopies however both times with poor prep. KUB completed at one point during his hospitalization showed gaseous distention with mild ileus. Treated with stool softeners and IV Reglan. CTA of the pelvis and abdomen was negative for mesenteric ischemia. Patient also underwent MRI of lumbar spine for further evaluation of lower back pain, imaging showed mild degenerative changes with no evidence of metastatic disease. L1-L2 mild disc bulging causing some flattening of the anterior thecal space with mild spinal stenosis, mild facet disease, these findings per radiologist were marginal for cause the patient's pain. Patient was seen and examined this morning resting in bed and in no acute distress. He reports that his abdominal pain has resolved and has been able to eat and drink without any nausea or vomiting. Patient was started on baclofen as well as Lidoderm patch the day before and patient reports better pain relief today, able to ambulate without assistance. He denies any fevers, chills, cough, shortness of breath, headache, dizziness or chest pain. Discussed with nurse who has talked to the covering oncologist , malika to discharge and follow-up as outpatient. Call placed to patient 's son Herb to discuss discharge today, new medications, and need for ongoing follow-up once discharged. Son is agreeable to plan and understands follow-up. I believe patient has met maximum benefit from hospitalization, will follow up with PET scan as outpatient and follow-up with oncologist for further treatment options of new lung adenocarcinoma. - Time Spent with Patient Total time spent providing and/or coordinating discharge services: - Quality: VTE Deep Vein Thrombosis/Pulmonary Embolism Present on Admission: No Exam Vital signs: Vital Signs 04/22/18 20:00 04/22/18 21:30 04/23/18 00:00 Temperature 37.1 C 36.8 C Pulse Rate 78 71 Respiratory Rate 20 20 18 Blood Pressure 132/62 126/60 Pulse Oximetry 93 L 99 04/23/18 04:00 04/23/18 05:37 04/23/18 08:00 Temperature 36.6 C 36.6 C Pulse Rate 76 70 Respiratory Rate 18 16 Blood Pressure 134/67 120/56 L Pulse Oximetry 94 L 94 L Intake & Output 04/22/18 04/23/18 04/23/18 18:59 06:59 18:59 Intake Total 300 / 300 Output Total 200 / 200 Balance 100 / 100 Intake: Oral 300 / 300 Output: Urine 200 / 200 Other: Date of Last Bowel Movement 04/21/18 04/21/18 04/21/18 Narrative: GENERAL: This is a well-nourished, well-developed patient, in no apparent distress. SKIN: Warm and dry. HEENT: Normocephalic. Pupils equal round. Nose without bleeding. Airway patent. NECK: Trachea midline. CARDIOVASCULAR: Regular rate and rhythm without murmurs, gallops, or rubs. RESPIRATORY: Clear to auscultation. Breath sounds equal bilaterally. No wheezes , rales, or rhonchi. GASTROINTESTINAL: Abdomen soft, round,+ bowel sounds, no tenderness, + Bowel sounds. MUSCULOSKELETAL: Extremities without clubbing, cyanosis, or edema. NEUROLOGICAL: Awake and alert. Oriented to time, place, person. No focal neuro deficit. Moves all extremities. Bilateral lower extremity strength 5/5, sensation intact. Normal speech. Results Procedures completed during hospitalization: Attempted colonoscopy 04/18/18 Attempted colonoscopy 04/21/18 Upper endoscopy 04/18/18 CT-guided biopsy 04/18/18 Completed studies during hospitalization: Pending at discharge 04/18/18 13:59 Surgical [PTH] Routine - Impressions ITS Impressions Abdomen/Pelvis CT 04/15/18 19:30 CONCLUSION: 1. Mild diverticulosis with no inflammatory change. 2. No visualized etiology to explain the patient's pain. Abdomen Ultrasound 04/16/18 00:00 CONCLUSION: 1. No acute findings. Probable small gallbladder polyp. No hydronephrosis. Echogenic, small right kidney. Chest CT 04/16/18 09:00 CONCLUSION: 1. Worrisome mass in the posterior right upper lobe most characteristic of primary bronchogenic carcinoma. The mass is amenable to CT-guided core biopsy. 2. Right hilar adenopathy and prominent aortopulmonary window node. 3. Further evaluation with PET/CT would be helpful for staging. Abdomen X-Ray 04/18/18 00:00 CONCLUSION: Nonspecific bowel gas pattern most consistent with ileus. Lung Biopsy CT 04/18/18 00:00 CONCLUSION: Successful CT-guided right lung biopsy for pathology and culture as described above. Chest X-Ray 04/18/18 14:13 CONCLUSION: No pneumothorax following biopsy. Abdomen/Pelvis CTA 04/19/18 00:00 CONCLUSION: Bone Scan Nuclear Medicine 04/21/18 00:00 CONCLUSION: No evidence of metastatic disease. Head MRI 04/21/18 00:00 CONCLUSION: 1. No evidence of metastatic disease. 2. Mild atrophy. Lumbar Spine MRI 04/22/18 00:00 CONCLUSION: 1. Mild degenerative changes. I do not see evidence for metastatic disease. 2. Findings marginal at L1-2 for cause of patient's pain. Discharge Plan - Discharge Disposition Patient Disposition: 01 Discharge Home - Discharge Condition Condition: Stable - Discharge Order Discharge Orders: Discharge Order (Routine); Ordered 04/23/18 Ordered By: Maulik Meeks - Discharge Details Discharge Comment: PET scan order physically written. - Physicians Team Primary Care Provider: UNKNOWN, Attending Provider: Harish Ellis Other Providers: Bartolome Thomas MD ; Slime Covarrubias MD ; Lorelei Moseley ; Jane Robledo
== END 2018-04-23 18:11 | disposition home or self-care (01) ==
LOC: NEPD 17:54 → N06 17:54 → NEDA 17:54 → N06 22:27
PROVIDERS: ADMIT Family Medicine; ATTEND Family Medicine
PROC: COLONOS (2018-04-18 10:07)
PROC: PANENDO (2018-04-18 10:07)